=== PATIENT | female | born 1970 | race Caucasian/White ===

== ENCOUNTER 2017-09-01 16:30 | Inpatient (IN) | payer MEDICAID ==
[2017-09-01] MEDS: ONDANSETRON 4 MG INJ IV (19:10)
[2017-09-01] MEDS: morphine 4 MG/ML VIAL IV (19:10)
[2017-09-01] MEDS: SOD CHLORIDE 0.9% 1,000 ML IV (19:12)
[2017-09-01 19:22] LABS: ADD MAN DIFF? NO
[2017-09-01 19:26] LABS: WHITE BLOOD COUNT 8.6 10^3/ul (4.8-10.8)
[2017-09-01 19:26] LABS: BASOPHIL # 0.1 10^3/ul (0.0-0.1); BASOPHILS % 0.6 % (0.0-2.0); EOSINOPHILS # 0.1 10^3/ul (0.0-0.5); EOSINOPHILS % 0.9 % (0.0-7.0); HEMATOCRIT 39.2 % (37.0-47.0); HEMOGLOBIN 12.6 g/dl (12.0-16.0); LYMPHOCYTES # 2.3 10^3/ul (0.8-2.9); MEAN CORPUSCULAR HEMOGLOBIN 25.9 pg (29.0-33.0); MEAN CORPUSCULAR HGB CONC 32.1 g/dl (32.0-37.0); MEAN CORPUSCULAR VOLUME 80.7 fl (82.0-101.0); MEAN PLATELET VOLUME 11.2 fl (7.4-10.4); MONOCYTE # 0.7 10^3/ul (0.3-0.9); MONOCYTES % 7.7 % (0.0-11.0); NEUTROPHIL # 5.5 10^3/ul (1.6-7.5); NEUTROPHILS % 63.6 % (39.0-77.0); PLATELET COUNT 311 10^3/UL (140-415); RED BLOOD COUNT 4.86 10^6/ul (4.20-5.40)
[2017-09-01 19:37] LABS: ADD UMIC YES; UR ASCORBIC ACID NEGATIVE (NEGATIVE); UR BACTERIA FEW /HPF (NONE SEEN); UR BILIRUBIN (Dip) NEGATIVE (NEGATIVE); UR BLOOD (Dip) NEGATIVE (NEGATIVE); UR CLARITY SLIGHTLY CLOUDY (CLEAR); UR COLOR YELLOW (YELLOW); UR GLUCOSE (Dip) NEGATIVE (NEGATIVE); UR KETONES (Dip) NEGATIVE (NEGATIVE); UR LEUKOCYTE ESTERASE (Dip) 2+ Leu/ul (NEGATIVE); UR NITRITE (Dip) NEGATIVE (NEGATIVE); UR RBC 1 /HPF (0-5); UR SQUAMOUS EPITHELIAL CELL MODERATE /HPF (FEW); UR TOTAL PROTEIN (Dip) NEGATIVE (NEGATIVE); UR UROBILINOGEN (Dip) NEGATIVE (NEGATIVE); UR WBC 18 /HPF (0-5)
[2017-09-01 19:43] LABS: ALANINE AMINOTRANSFERASE 39 IU/L (13-69); ALBUMIN 4.6 g/dl (3.3-4.9); ALBUMIN/GLOBULIN RATIO 1.17; ALKALINE PHOSPHATASE 72 IU/L (42-121); ANION GAP 18 (8-16); ASPARTATE AMINO TRANSFERASE 37 IU/L (15-46); BILIRUBIN,INDIRECT 0.2 mg/dl (0-1.1); BILIRUBIN,TOTAL 0.2 mg/dl (0.2-1.3); BLOOD UREA NITROGEN 13 mg/dl (7-20); CALCIUM 9.1 mg/dl (8.4-10.2); CARBON DIOXIDE 27 mmol/L (21-31); CHLORIDE 101 mmol/L (97-110); CREATININE 0.96 mg/dl (0.44-1.00); GLUCOSE 89 mg/dl (70-220); LIPASE 186 U/L (23-300); POTASSIUM 3.6 mmol/L (3.5-5.1); SODIUM 142 mmol/L (135-144); TOTAL PROTEIN 8.5 g/dl (6.1-8.1)
[2017-09-01 19:55] LABS: TROPONIN-I < 0.012 ng/ml (0.00-0.12)
[2017-09-02] MEDS ORDERED: ACETAMINOPHEN 325 MG TAB PO
[2017-09-02] MEDS ORDERED: ONDANSETRON 4 MG INJ IV
[2017-09-02] MEDS: PANTOPRAZOLE 40 MG INJ IV ×2 (05:55→17:11)
[2017-09-02 06:32] LABS: ADD MAN DIFF? NO
[2017-09-02 06:46] LABS: WHITE BLOOD COUNT 7.9 10^3/ul (4.8-10.8)
[2017-09-02 06:46] LABS: BASOPHILS % 0.4 % (0.0-2.0); HEMATOCRIT 36.1 % (37.0-47.0); HEMOGLOBIN 11.6 g/dl (12.0-16.0); LYMPHOCYTES % 12.9 % (15.0-51.0); MEAN CORPUSCULAR HEMOGLOBIN 25.8 pg (29.0-33.0); MEAN CORPUSCULAR HGB CONC 32.1 g/dl (32.0-37.0); MEAN CORPUSCULAR VOLUME 80.4 fl (82.0-101.0); MEAN PLATELET VOLUME 11.7 fl (7.4-10.4); MONOCYTE # 0.3 10^3/ul (0.3-0.9); MONOCYTES % 4.2 % (0.0-11.0); NEUTROPHIL # 6.5 10^3/ul (1.6-7.5); NEUTROPHILS % 82.4 % (39.0-77.0); PLATELET COUNT 280 10^3/UL (140-415); RED BLOOD COUNT 4.49 10^6/ul (4.20-5.40)
[2017-09-02 07:06] LABS: ANION GAP 18 (8-16); BLOOD UREA NITROGEN 11 mg/dl (7-20); CARBON DIOXIDE 23 mmol/L (21-31); CHLORIDE 107 mmol/L (97-110); CREATININE 0.83 mg/dl (0.44-1.00); GLUCOSE 120 mg/dl (70-220); POTASSIUM 3.9 mmol/L (3.5-5.1); SODIUM 144 mmol/L (135-144)
[2017-09-02 07:07] LABS: ALANINE AMINOTRANSFERASE 44 IU/L (13-69); ALBUMIN 4.1 g/dl (3.3-4.9); ALBUMIN/GLOBULIN RATIO 1.24; ALKALINE PHOSPHATASE 74 IU/L (42-121); ASPARTATE AMINO TRANSFERASE 39 IU/L (15-46); BILIRUBIN,INDIRECT 0.2 mg/dl (0-1.1); BILIRUBIN,TOTAL 0.2 mg/dl (0.2-1.3); CALCIUM 8.6 mg/dl (8.4-10.2); PHOSPHORUS 2.7 mg/dl (2.5-4.9); TOTAL PROTEIN 7.4 g/dl (6.1-8.1)
[2017-09-02 08:13] LABS: CANCER ANTIGEN 125 57.8 U/ml (0.0-35.0)
[2017-09-02 08:13] LABS: CARCINOEMBRYONIC ANTIGEN 1.8 ng/ml (0.0-5.0)
[2017-09-02] MEDS: CIPROFLOXACIN 400MG/D5W 200 ML IVPB ×2 (09:29→22:05)
[2017-09-02] MEDS ORDERED: BARIUM SULF 2% 450 ML BTL (BERRY SMOOTHIE) PO (12:30)
[2017-09-02] MEDS: D5W-0.45 NACL + KCL 20 MEQ 1,000 ML IV (16:25)
[2017-09-02] MEDS: IOHEXOL 300MG/ML 150 ML BTL (20:41)
[2017-09-02] MEDS: SOD CHLORIDE 0.9% 100 ML (20:41)
[2017-09-03 05:25] LABS: ADD MAN DIFF? NO
[2017-09-03 05:32] LABS: WHITE BLOOD COUNT 8.5 10^3/ul (4.8-10.8)
[2017-09-03 05:32] LABS: BASOPHILS % 0.5 % (0.0-2.0); EOSINOPHILS # 0.1 10^3/ul (0.0-0.5); EOSINOPHILS % 0.7 % (0.0-7.0); HEMATOCRIT 36.2 % (37.0-47.0); HEMOGLOBIN 11.4 g/dl (12.0-16.0); LYMPHOCYTES # 1.9 10^3/ul (0.8-2.9); LYMPHOCYTES % 22.5 % (15.0-51.0); MEAN CORPUSCULAR HEMOGLOBIN 25.4 pg (29.0-33.0); MEAN CORPUSCULAR HGB CONC 31.5 g/dl (32.0-37.0); MEAN CORPUSCULAR VOLUME 80.6 fl (82.0-101.0); MEAN PLATELET VOLUME 11.1 fl (7.4-10.4); MONOCYTE # 0.9 10^3/ul (0.3-0.9); MONOCYTES % 10.6 % (0.0-11.0); NEUTROPHIL # 5.6 10^3/ul (1.6-7.5); NEUTROPHILS % 65.6 % (39.0-77.0); PLATELET COUNT 264 10^3/UL (140-415); RED BLOOD COUNT 4.49 10^6/ul (4.20-5.40); RED CELL DISTRIBUTION WIDTH 16.3 % (11.5-14.5)
[2017-09-03 05:49] LABS: ALANINE AMINOTRANSFERASE 39 IU/L (13-69); ALBUMIN 3.9 g/dl (3.3-4.9); ALBUMIN/GLOBULIN RATIO 1.18; ALKALINE PHOSPHATASE 70 IU/L (42-121); ANION GAP 15 (8-16); ASPARTATE AMINO TRANSFERASE 28 IU/L (15-46); BILIRUBIN,INDIRECT 0.5 mg/dl (0-1.1); BILIRUBIN,TOTAL 0.5 mg/dl (0.2-1.3); BLOOD UREA NITROGEN 8 mg/dl (7-20); CALCIUM 8.4 mg/dl (8.4-10.2); CARBON DIOXIDE 23 mmol/L (21-31); CHLORIDE 108 mmol/L (97-110); CREATININE 0.76 mg/dl (0.44-1.00); GLUCOSE 113 mg/dl (70-220); POTASSIUM 3.6 mmol/L (3.5-5.1); SODIUM 142 mmol/L (135-144); TOTAL PROTEIN 7.2 g/dl (6.1-8.1)
[2017-09-03] MEDS: PANTOPRAZOLE 40 MG INJ IV ×2 (07:15→18:03)
[2017-09-03] MEDS: CIPROFLOXACIN 400MG/D5W 200 ML IVPB ×2 (09:27→21:12)
[2017-09-03] MEDS: D5W-0.45 NACL + KCL 20 MEQ 1,000 ML IV (12:06)
[2017-09-03] MEDS: FENTAnyl 50 MCG/ML VIAL (15:20)
[2017-09-03] MEDS: PROPOFOL 20 ML (15:20)
[2017-09-03] MEDS: METOCLOPRAMIDE 10 MG INJ IV ×2 (18:04→23:57)
[2017-09-03] MEDS: morphine 4 MG/ML VIAL IV (23:57)
[2017-09-04] MEDS: D5W-0.45 NACL + KCL 20 MEQ 1,000 ML IV ×2 (01:50→08:38)
[2017-09-04] MEDS: METOCLOPRAMIDE 10 MG INJ IV ×5 (06:00→23:28)
[2017-09-04] MEDS: PANTOPRAZOLE 40 MG INJ IV ×2 (06:16→17:33)
[2017-09-04] MEDS: CIPROFLOXACIN 400MG/D5W 200 ML IVPB ×2 (08:38→20:18)
[2017-09-05] MEDS: D5W-0.45 NACL + KCL 20 MEQ 1,000 ML IV ×2 (01:22→18:15)
[2017-09-05] MEDS: PANTOPRAZOLE 40 MG INJ IV ×2 (05:13→18:15)
[2017-09-05] MEDS: METOCLOPRAMIDE 10 MG INJ IV ×3 (05:13→18:15)
[2017-09-05] MEDS: CIPROFLOXACIN 400MG/D5W 200 ML IVPB ×2 (08:30→20:51)
[2017-09-06] MEDS: METOCLOPRAMIDE 10 MG INJ IV ×5 (00:52→23:51)
[2017-09-06] MEDS: D5W-0.45 NACL + KCL 20 MEQ 1,000 ML IV ×2 (03:50→13:15)
[2017-09-06] MEDS: PANTOPRAZOLE 40 MG INJ IV ×2 (05:43→18:53)
[2017-09-06] MEDS: CIPROFLOXACIN 400MG/D5W 200 ML IVPB ×2 (08:24→20:52)
[2017-09-07] MEDS: METOCLOPRAMIDE 10 MG INJ IV (05:14)
[2017-09-07] MEDS: PANTOPRAZOLE 40 MG INJ IV ×2 (05:14→17:31)
[2017-09-07] MEDS: D5W-0.45 NACL + KCL 20 MEQ 1,000 ML IV (07:44)
[2017-09-07] MEDS: CIPROFLOXACIN 400MG/D5W 200 ML IVPB ×2 (09:31→21:11)
[2017-09-07 10:18] LABS: OCCULT BLOOD STOOL NEGATIVE (NEGATIVE)
[2017-09-07 11:46] LABS: ANION GAP 17 (8-16); BLOOD UREA NITROGEN 10 mg/dl (7-20); CALCIUM 8.8 mg/dl (8.4-10.2); CARBON DIOXIDE 22 mmol/L (21-31); CHLORIDE 105 mmol/L (97-110); GLUCOSE 109 mg/dl (70-220); POTASSIUM 3.7 mmol/L (3.5-5.1); SODIUM 140 mmol/L (135-144)
[2017-09-08] MEDS: D5W-0.45 NACL + KCL 20 MEQ 1,000 ML IV ×2 (04:55→22:14)
[2017-09-08] MEDS: PANTOPRAZOLE 40 MG INJ IV ×2 (05:09→18:27)
[2017-09-08] MEDS: CIPROFLOXACIN 400MG/D5W 200 ML IVPB (08:09)
[2017-09-09 05:36] LABS: ADD MAN DIFF? NO
[2017-09-09 05:44] LABS: WHITE BLOOD COUNT 6.8 10^3/ul (4.8-10.8)
[2017-09-09 05:44] LABS: BASOPHILS % 0.6 % (0.0-2.0); EOSINOPHILS # 0.2 10^3/ul (0.0-0.5); EOSINOPHILS % 3.1 % (0.0-7.0); HEMATOCRIT 35.3 % (37.0-47.0); HEMOGLOBIN 11.6 g/dl (12.0-16.0); LYMPHOCYTES % 29.8 % (15.0-51.0); MEAN CORPUSCULAR HEMOGLOBIN 26.2 pg (29.0-33.0); MEAN CORPUSCULAR HGB CONC 32.9 g/dl (32.0-37.0); MEAN CORPUSCULAR VOLUME 79.7 fl (82.0-101.0); MEAN PLATELET VOLUME 10.9 fl (7.4-10.4); MONOCYTE # 0.8 10^3/ul (0.3-0.9); MONOCYTES % 11.7 % (0.0-11.0); NEUTROPHIL # 3.7 10^3/ul (1.6-7.5); NEUTROPHILS % 54.4 % (39.0-77.0); PLATELET COUNT 282 10^3/UL (140-415); RED BLOOD COUNT 4.43 10^6/ul (4.20-5.40); RED CELL DISTRIBUTION WIDTH 16.2 % (11.5-14.5)
[2017-09-09 06:06] LABS: MAGNESIUM 1.7 mg/dl (1.7-2.5)
[2017-09-09 06:06] LABS: PHOSPHORUS 4.1 mg/dl (2.5-4.9)
[2017-09-09 06:10] LABS: ANION GAP 13 (8-16); BLOOD UREA NITROGEN 9 mg/dl (7-20); CALCIUM 9.1 mg/dl (8.4-10.2); CARBON DIOXIDE 27 mmol/L (21-31); CHLORIDE 104 mmol/L (97-110); CREATININE 0.83 mg/dl (0.44-1.00); GLUCOSE 100 mg/dl (70-220); POTASSIUM 3.9 mmol/L (3.5-5.1); SODIUM 140 mmol/L (135-144)
[2017-09-09] MEDS: PANTOPRAZOLE 40 MG INJ IV ×2 (06:36→17:09)
[2017-09-09 12:36] LABS: INR 0.95; PROTIME 12.8 Sec (11.9-14.9)
[2017-09-09] MEDS: D5W-0.45 NACL + KCL 20 MEQ 1,000 ML IV (15:08)
[2017-09-10] MEDS: PANTOPRAZOLE 40 MG INJ IV ×2 (05:26→17:05)
[2017-09-10 05:30] LABS: ADD MAN DIFF? NO
[2017-09-10 05:34] LABS: BASOPHIL # 0.1 10^3/ul (0.0-0.1); BASOPHILS % 0.7 % (0.0-2.0); EOSINOPHILS # 0.1 10^3/ul (0.0-0.5); EOSINOPHILS % 1.9 % (0.0-7.0); HEMATOCRIT 36.6 % (37.0-47.0); HEMOGLOBIN 12.2 g/dl (12.0-16.0); LYMPHOCYTES # 1.7 10^3/ul (0.8-2.9); LYMPHOCYTES % 22.4 % (15.0-51.0); MEAN CORPUSCULAR HGB CONC 33.3 g/dl (32.0-37.0); MEAN PLATELET VOLUME 10.6 fl (7.4-10.4); MONOCYTE # 0.7 10^3/ul (0.3-0.9); MONOCYTES % 9.8 % (0.0-11.0); NEUTROPHIL # 4.8 10^3/ul (1.6-7.5); NEUTROPHILS % 64.9 % (39.0-77.0); PLATELET COUNT 272 10^3/UL (140-415); RED BLOOD COUNT 4.69 10^6/ul (4.20-5.40); RED CELL DISTRIBUTION WIDTH 15.9 % (11.5-14.5)
[2017-09-10 05:34] LABS: WHITE BLOOD COUNT 7.4 10^3/ul (4.8-10.8)
[2017-09-10 05:50] LABS: MAGNESIUM 1.8 mg/dl (1.7-2.5)
[2017-09-10 05:50] LABS: PHOSPHORUS 3.8 mg/dl (2.5-4.9)
[2017-09-10 05:54] LABS: ALANINE AMINOTRANSFERASE 34 IU/L (13-69); ALBUMIN 3.4 g/dl (3.3-4.9); ALBUMIN/GLOBULIN RATIO 0.97; ALKALINE PHOSPHATASE 66 IU/L (42-121); ANION GAP 14 (8-16); ASPARTATE AMINO TRANSFERASE 16 IU/L (15-46); BILIRUBIN,INDIRECT 0.3 mg/dl (0-1.1); BILIRUBIN,TOTAL 0.3 mg/dl (0.2-1.3); BLOOD UREA NITROGEN 8 mg/dl (7-20); CALCIUM 9.2 mg/dl (8.4-10.2); CARBON DIOXIDE 25 mmol/L (21-31); CHLORIDE 105 mmol/L (97-110); CREATININE 0.76 mg/dl (0.44-1.00); GLUCOSE 100 mg/dl (70-220); POTASSIUM 3.8 mmol/L (3.5-5.1); SODIUM 140 mmol/L (135-144); TOTAL PROTEIN 6.9 g/dl (6.1-8.1)
[2017-09-10] MEDS: D5W-0.45 NACL + KCL 20 MEQ 1,000 ML IV (06:52)
[2017-09-10] MEDS ORDERED: BUPIVACAINE 0.5%/EPI (SDV) 30 ML INJ (09:12)
[2017-09-10] MEDS ORDERED: LIDOCAINE 2%/EPI 30 ML INJ (11:12)
[2017-09-10] MEDS ORDERED: FENTAnyl 50 MCG/ML VIAL ×4 (11:23→13:53)
[2017-09-10] MEDS ORDERED: LIDOCAINE 1% (MPF) 30 ML INJ (11:34)
[2017-09-10] MEDS ORDERED: CEFAZOLIN 1 GM INJ (11:51)
[2017-09-10] MEDS ORDERED: LIDOCAINE 2% (SDV) 5 ML INJ (11:51)
[2017-09-10] MEDS ORDERED: PROPOFOL 20 ML (11:51)
[2017-09-10] MEDS ORDERED: SUGAMMADEX SODIUM 200 MG/2 ML VIAL IV (11:51)
[2017-09-10] MEDS ORDERED: ROCURONIUM 50 MG INJ (11:51)
[2017-09-10] MEDS ORDERED: SUCCINYLCHOLINE CHLORIDE 100 MG/5 ML SYG IV (11:51)
[2017-09-10] MEDS ORDERED: FENTAnyl 50 MCG/ML VIAL IV ×2 (15:00)
[2017-09-10] MEDS ORDERED: MEPERIDINE 25 MG INJ (15:00)
[2017-09-10] MEDS ORDERED: METOCLOPRAMIDE 10 MG INJ IV (15:00)
[2017-09-10] MEDS ORDERED: DIPHENHYDRAMINE 50 MG INJ IV (15:00)
[2017-09-10] MEDS ORDERED: HYDROmorphONE (0.2 MG/ML) 10ML SYG IV ×3 (15:00)
[2017-09-10] MEDS ORDERED: ONDANSETRON 4 MG INJ IV (15:00)
[2017-09-10] MEDS: MEPERIDINE 25 MG INJ IV (15:14)
[2017-09-11] MEDS: D5W-0.45 NACL + KCL 20 MEQ 1,000 ML IV ×3 (00:30→23:29)
[2017-09-11] MEDS: PANTOPRAZOLE 40 MG INJ IV ×2 (05:12→17:22)
[2017-09-11 05:38] LABS: ADD MAN DIFF? NO
[2017-09-11 05:47] LABS: WHITE BLOOD COUNT 10.1 10^3/ul (4.8-10.8)
[2017-09-11 05:47] LABS: BASOPHILS % 0.3 % (0.0-2.0); EOSINOPHILS % 0.2 % (0.0-7.0); HEMATOCRIT 37.1 % (37.0-47.0); HEMOGLOBIN 12.1 g/dl (12.0-16.0); LYMPHOCYTES # 1.6 10^3/ul (0.8-2.9); LYMPHOCYTES % 15.6 % (15.0-51.0); MEAN CORPUSCULAR HEMOGLOBIN 25.6 pg (29.0-33.0); MEAN CORPUSCULAR HGB CONC 32.6 g/dl (32.0-37.0); MEAN CORPUSCULAR VOLUME 78.6 fl (82.0-101.0); MEAN PLATELET VOLUME 10.8 fl (7.4-10.4); MONOCYTE # 0.8 10^3/ul (0.3-0.9); MONOCYTES % 8.3 % (0.0-11.0); NEUTROPHIL # 7.6 10^3/ul (1.6-7.5); NEUTROPHILS % 75.3 % (39.0-77.0); PLATELET COUNT 293 10^3/UL (140-415); RED BLOOD COUNT 4.72 10^6/ul (4.20-5.40); RED CELL DISTRIBUTION WIDTH 15.8 % (11.5-14.5)
[2017-09-11 06:08] LABS: MAGNESIUM 1.7 mg/dl (1.7-2.5)
[2017-09-11 06:11] LABS: ALANINE AMINOTRANSFERASE 33 IU/L (13-69); ALBUMIN 3.5 g/dl (3.3-4.9); ALKALINE PHOSPHATASE 71 IU/L (42-121); ANION GAP 15 (8-16); ASPARTATE AMINO TRANSFERASE 30 IU/L (15-46); BILIRUBIN,INDIRECT 0.4 mg/dl (0-1.1); BILIRUBIN,TOTAL 0.4 mg/dl (0.2-1.3); BLOOD UREA NITROGEN 5 mg/dl (7-20); CALCIUM 8.7 mg/dl (8.4-10.2); CARBON DIOXIDE 27 mmol/L (21-31); CHLORIDE 103 mmol/L (97-110); CREATININE 0.79 mg/dl (0.44-1.00); GLUCOSE 114 mg/dl (70-220); POTASSIUM 4.1 mmol/L (3.5-5.1); SODIUM 141 mmol/L (135-144)
[2017-09-12] MEDS: PANTOPRAZOLE 40 MG INJ IV ×2 (05:22→18:01)
[2017-09-12] MEDS: D5W-0.45 NACL + KCL 20 MEQ 1,000 ML IV (16:29)
[2017-09-13 05:07] LABS: ADD MAN DIFF? NO
[2017-09-13 05:11] LABS: WHITE BLOOD COUNT 9.9 10^3/ul (4.8-10.8)
[2017-09-13 05:11] LABS: BASOPHILS % 0.4 % (0.0-2.0); EOSINOPHILS # 0.1 10^3/ul (0.0-0.5); EOSINOPHILS % 1.2 % (0.0-7.0); HEMATOCRIT 37.1 % (37.0-47.0); LYMPHOCYTES # 1.4 10^3/ul (0.8-2.9); LYMPHOCYTES % 14.5 % (15.0-51.0); MEAN CORPUSCULAR HEMOGLOBIN 25.5 pg (29.0-33.0); MEAN CORPUSCULAR HGB CONC 32.3 g/dl (32.0-37.0); MEAN CORPUSCULAR VOLUME 78.8 fl (82.0-101.0); MEAN PLATELET VOLUME 10.4 fl (7.4-10.4); MONOCYTE # 0.8 10^3/ul (0.3-0.9); MONOCYTES % 8.3 % (0.0-11.0); NEUTROPHIL # 7.4 10^3/ul (1.6-7.5); NEUTROPHILS % 75.4 % (39.0-77.0); PLATELET COUNT 267 10^3/UL (140-415); RED BLOOD COUNT 4.71 10^6/ul (4.20-5.40)
[2017-09-13] MEDS: PANTOPRAZOLE 40 MG INJ IV ×2 (05:35→17:48)
[2017-09-13 05:45] LABS: ANION GAP 15 (8-16); BLOOD UREA NITROGEN 10 mg/dl (7-20); CALCIUM 8.6 mg/dl (8.4-10.2); CARBON DIOXIDE 24 mmol/L (21-31); CHLORIDE 105 mmol/L (97-110); CREATININE 0.73 mg/dl (0.44-1.00); GLUCOSE 109 mg/dl (70-220); POTASSIUM 3.5 mmol/L (3.5-5.1); SODIUM 140 mmol/L (135-144)
[2017-09-13 05:50] LABS: PHOSPHORUS 3.1 mg/dl (2.5-4.9)
[2017-09-13 05:50] LABS: MAGNESIUM 1.8 mg/dl (1.7-2.5)
[2017-09-13] MEDS: D5W-0.45 NACL + KCL 20 MEQ 1,000 ML IV (09:38)
[2017-09-13] MEDS ORDERED: DIATR MEGLU/DIATRIZOATE SODIUM 120 ML BTL (17:15)
[2017-09-14] MEDS: PANTOPRAZOLE 40 MG INJ IV ×2 (05:32→19:17)
[2017-09-14] MEDS: D5W-0.45 NACL + KCL 20 MEQ 1,000 ML IV (06:32)
[2017-09-15] MEDS: D5W-0.45 NACL + KCL 20 MEQ 1,000 ML IV ×3 (00:01→23:35)
[2017-09-15] MEDS: PANTOPRAZOLE 40 MG INJ IV ×2 (05:43→18:03)
[2017-09-15 06:01] LABS: ADD MAN DIFF? NO
[2017-09-15 06:15] LABS: BASOPHIL # 0.1 10^3/ul (0.0-0.1); BASOPHILS % 0.6 % (0.0-2.0); EOSINOPHILS # 0.2 10^3/ul (0.0-0.5); EOSINOPHILS % 2.7 % (0.0-7.0); HEMATOCRIT 33.8 % (37.0-47.0); HEMOGLOBIN 10.9 g/dl (12.0-16.0); LYMPHOCYTES % 23.4 % (15.0-51.0); MEAN CORPUSCULAR HEMOGLOBIN 25.6 pg (29.0-33.0); MEAN CORPUSCULAR HGB CONC 32.2 g/dl (32.0-37.0); MEAN CORPUSCULAR VOLUME 79.3 fl (82.0-101.0); MEAN PLATELET VOLUME 11.3 fl (7.4-10.4); MONOCYTE # 0.8 10^3/ul (0.3-0.9); NEUTROPHIL # 5.6 10^3/ul (1.6-7.5); NEUTROPHILS % 64.1 % (39.0-77.0); PLATELET COUNT 267 10^3/UL (140-415); RED BLOOD COUNT 4.26 10^6/ul (4.20-5.40); RED CELL DISTRIBUTION WIDTH 16.6 % (11.5-14.5)
[2017-09-15 06:15] LABS: WHITE BLOOD COUNT 8.7 10^3/ul (4.8-10.8)
[2017-09-15 06:27] LABS: PHOSPHORUS 3.6 mg/dl (2.5-4.9)
[2017-09-15 06:27] LABS: MAGNESIUM 1.8 mg/dl (1.7-2.5)
[2017-09-15 06:48] LABS: ANION GAP 13 (8-16); BLOOD UREA NITROGEN 11 mg/dl (7-20); CALCIUM 8.1 mg/dl (8.4-10.2); CARBON DIOXIDE 27 mmol/L (21-31); CHLORIDE 104 mmol/L (97-110); CREATININE 0.68 mg/dl (0.44-1.00); GLUCOSE 98 mg/dl (70-220); POTASSIUM 3.3 mmol/L (3.5-5.1); SODIUM 141 mmol/L (135-144)
[2017-09-15] MEDS ORDERED: POTASSIUM CHLORIDE 20 MEQ in DEXTROSE 5% 100 ML IVPB (13:00)
[2017-09-15] MEDS: POTASSIUM CHLORIDE 50 ML IVPB ×2 (14:12→16:16)
[2017-09-16 05:26] LABS: ADD MAN DIFF? NO
[2017-09-16 05:29] LABS: BASOPHILS % 0.4 % (0.0-2.0); EOSINOPHILS # 0.3 10^3/ul (0.0-0.5); EOSINOPHILS % 3.6 % (0.0-7.0); HEMATOCRIT 35.2 % (37.0-47.0); HEMOGLOBIN 11.5 g/dl (12.0-16.0); LYMPHOCYTES # 1.6 10^3/ul (0.8-2.9); MEAN CORPUSCULAR HGB CONC 32.7 g/dl (32.0-37.0); MEAN CORPUSCULAR VOLUME 79.5 fl (82.0-101.0); MEAN PLATELET VOLUME 10.5 fl (7.4-10.4); MONOCYTE # 0.8 10^3/ul (0.3-0.9); MONOCYTES % 10.3 % (0.0-11.0); NEUTROPHIL # 4.7 10^3/ul (1.6-7.5); NEUTROPHILS % 63.4 % (39.0-77.0); PLATELET COUNT 283 10^3/UL (140-415); RED BLOOD COUNT 4.43 10^6/ul (4.20-5.40); RED CELL DISTRIBUTION WIDTH 16.1 % (11.5-14.5)
[2017-09-16 05:29] LABS: WHITE BLOOD COUNT 7.4 10^3/ul (4.8-10.8)
[2017-09-16] MEDS: PANTOPRAZOLE 40 MG INJ IV ×2 (05:38→17:08)
[2017-09-16 05:45] LABS: ANION GAP 14 (8-16); BLOOD UREA NITROGEN 9 mg/dl (7-20); CALCIUM 8.4 mg/dl (8.4-10.2); CARBON DIOXIDE 28 mmol/L (21-31); CHLORIDE 104 mmol/L (97-110); CREATININE 0.73 mg/dl (0.44-1.00); GLUCOSE 101 mg/dl (70-220); POTASSIUM 4.2 mmol/L (3.5-5.1); SODIUM 142 mmol/L (135-144)
[2017-09-16 12:02] LABS: IRON 18 ug/dl (35-150)
[2017-09-16 12:12] LABS: % IRON SATURATION 7 % SAT (22-52); TOTAL IRON BINDING CAPACITY 241 ug/dl (241-421)
[2017-09-16] MEDS: D5W-0.45 NACL + KCL 20 MEQ 1,000 ML IV (14:39)
[2017-09-17 05:19] LABS: ADD MAN DIFF? NO
[2017-09-17 05:25] LABS: BASOPHILS % 0.6 % (0.0-2.0); EOSINOPHILS # 0.2 10^3/ul (0.0-0.5); EOSINOPHILS % 3.2 % (0.0-7.0); HEMATOCRIT 36.1 % (37.0-47.0); HEMOGLOBIN 11.4 g/dl (12.0-16.0); LYMPHOCYTES # 1.9 10^3/ul (0.8-2.9); LYMPHOCYTES % 26.6 % (15.0-51.0); MEAN CORPUSCULAR HEMOGLOBIN 25.3 pg (29.0-33.0); MEAN CORPUSCULAR HGB CONC 31.6 g/dl (32.0-37.0); MONOCYTE # 0.6 10^3/ul (0.3-0.9); MONOCYTES % 8.2 % (0.0-11.0); NEUTROPHIL # 4.4 10^3/ul (1.6-7.5); NEUTROPHILS % 61.1 % (39.0-77.0); PLATELET COUNT 305 10^3/UL (140-415); RED BLOOD COUNT 4.51 10^6/ul (4.20-5.40); RED CELL DISTRIBUTION WIDTH 16.2 % (11.5-14.5)
[2017-09-17 05:25] LABS: WHITE BLOOD COUNT 7.2 10^3/ul (4.8-10.8)
[2017-09-17 05:46] LABS: ANION GAP 11 (8-16); BLOOD UREA NITROGEN 9 mg/dl (7-20); CALCIUM 8.9 mg/dl (8.4-10.2); CARBON DIOXIDE 29 mmol/L (21-31); CHLORIDE 102 mmol/L (97-110); CREATININE 0.71 mg/dl (0.44-1.00); GLUCOSE 107 mg/dl (70-220); POTASSIUM 4.2 mmol/L (3.5-5.1); SODIUM 138 mmol/L (135-144)
[2017-09-17] MEDS: PANTOPRAZOLE 40 MG INJ IV ×2 (06:26→18:32)
[2017-09-17] MEDS: D5W-0.45 NACL + KCL 20 MEQ 1,000 ML IV (06:27)
[2017-09-17] MEDS ORDERED: DIPHENHYDRAMINE 50 MG INJ IV (19:00)
[2017-09-17] MEDS ORDERED: MEPERIDINE 25 MG INJ IV (19:00)
[2017-09-17] MEDS ORDERED: ONDANSETRON 4 MG INJ IV (19:00)
[2017-09-17] MEDS ORDERED: HYDROmorphONE (0.2 MG/ML) 10ML SYG IV (19:00)
[2017-09-17] MEDS ORDERED: PROPOFOL 20 ML ×3 (19:09→19:45)
[2017-09-17] MEDS ORDERED: LIDOCAINE 1% (MDV) 20 ML INJ (19:09)
[2017-09-17] MEDS ORDERED: MIDAZOLAM 1 MG/ML 2 ML INJ ×2 (19:09→19:21)
[2017-09-17] MEDS: METOCLOPRAMIDE 10 MG INJ IV ×2 (20:00→21:35)
[2017-09-17] MEDS: ONDANSETRON 4 MG INJ IV (21:52)
[2017-09-18] MEDS: METOCLOPRAMIDE 10 MG INJ IV ×5 (02:57→17:43)
[2017-09-18 05:12] LABS: ADD MAN DIFF? NO
[2017-09-18 05:16] LABS: BASOPHILS % 0.4 % (0.0-2.0); EOSINOPHILS # 0.1 10^3/ul (0.0-0.5); EOSINOPHILS % 1.1 % (0.0-7.0); HEMATOCRIT 36.1 % (37.0-47.0); HEMOGLOBIN 11.6 g/dl (12.0-16.0); LYMPHOCYTES # 0.8 10^3/ul (0.8-2.9); LYMPHOCYTES % 10.4 % (15.0-51.0); MEAN CORPUSCULAR HEMOGLOBIN 25.4 pg (29.0-33.0); MEAN CORPUSCULAR HGB CONC 32.1 g/dl (32.0-37.0); MEAN CORPUSCULAR VOLUME 79.2 fl (82.0-101.0); MEAN PLATELET VOLUME 10.6 fl (7.4-10.4); MONOCYTE # 0.6 10^3/ul (0.3-0.9); MONOCYTES % 6.9 % (0.0-11.0); NEUTROPHIL # 6.5 10^3/ul (1.6-7.5); NEUTROPHILS % 80.8 % (39.0-77.0); PLATELET COUNT 329 10^3/UL (140-415); RED BLOOD COUNT 4.56 10^6/ul (4.20-5.40)
[2017-09-18 05:16] LABS: WHITE BLOOD COUNT 8.1 10^3/ul (4.8-10.8)
[2017-09-18] MEDS: PANTOPRAZOLE 40 MG INJ IV ×2 (05:29→17:42)
[2017-09-18] MEDS: D5W-0.45 NACL + KCL 20 MEQ 1,000 ML IV ×2 (05:29→15:50)
[2017-09-18 06:13] LABS: ANION GAP 14 (8-16); BLOOD UREA NITROGEN 10 mg/dl (7-20); CALCIUM 8.3 mg/dl (8.4-10.2); CARBON DIOXIDE 26 mmol/L (21-31); CHLORIDE 104 mmol/L (97-110); CREATININE 0.75 mg/dl (0.44-1.00); GLUCOSE 130 mg/dl (70-220); POTASSIUM 4.5 mmol/L (3.5-5.1); SODIUM 139 mmol/L (135-144)
[2017-09-18] MEDS: ONDANSETRON 4 MG INJ IV (08:30)
[2017-09-18] MEDS ORDERED: DIATR MEGLU/DIATRIZOATE SODIUM 120 ML BTL (13:06)
[2017-09-19] MEDS: METOCLOPRAMIDE 10 MG INJ IV ×4 (00:32→17:20)
[2017-09-19] MEDS: D5W-0.45 NACL + KCL 20 MEQ 1,000 ML IV ×3 (00:32→17:13)
[2017-09-19] MEDS: PANTOPRAZOLE 40 MG INJ IV ×2 (05:26→17:13)
[2017-09-19 06:14] LABS: ADD MAN DIFF? NO
[2017-09-19 06:29] LABS: BASOPHIL # 0.1 10^3/ul (0.0-0.1); BASOPHILS % 0.8 % (0.0-2.0); EOSINOPHILS # 0.2 10^3/ul (0.0-0.5); EOSINOPHILS % 2.8 % (0.0-7.0); HEMATOCRIT 35.8 % (37.0-47.0); HEMOGLOBIN 11.6 g/dl (12.0-16.0); LYMPHOCYTES # 1.3 10^3/ul (0.8-2.9); LYMPHOCYTES % 18.8 % (15.0-51.0); MEAN CORPUSCULAR HEMOGLOBIN 26.2 pg (29.0-33.0); MEAN CORPUSCULAR HGB CONC 32.4 g/dl (32.0-37.0); MEAN CORPUSCULAR VOLUME 80.8 fl (82.0-101.0); MEAN PLATELET VOLUME 11.2 fl (7.4-10.4); MONOCYTE # 0.8 10^3/ul (0.3-0.9); MONOCYTES % 10.6 % (0.0-11.0); NEUTROPHIL # 4.7 10^3/ul (1.6-7.5); NEUTROPHILS % 66.7 % (39.0-77.0); PLATELET COUNT 339 10^3/UL (140-415); RED BLOOD COUNT 4.43 10^6/ul (4.20-5.40); RED CELL DISTRIBUTION WIDTH 16.8 % (11.5-14.5)
[2017-09-19 06:29] LABS: WHITE BLOOD COUNT 7.1 10^3/ul (4.8-10.8)
[2017-09-19 07:43] LABS: ANION GAP 14 (8-16); BLOOD UREA NITROGEN 10 mg/dl (7-20); CALCIUM 8.6 mg/dl (8.4-10.2); CARBON DIOXIDE 27 mmol/L (21-31); CHLORIDE 104 mmol/L (97-110); CREATININE 0.74 mg/dl (0.44-1.00); GLUCOSE 114 mg/dl (70-220); POTASSIUM 4.5 mmol/L (3.5-5.1); SODIUM 140 mmol/L (135-144)
[2017-09-19] MEDS: SOD FERRIC GLUC COMPLX 125 MG in SOD CHLORIDE 0.9% 100 ML IVPB (17:13)
[2017-09-20] MEDS: METOCLOPRAMIDE 10 MG INJ IV ×5 (00:08→23:56)
[2017-09-20 05:36] LABS: ADD MAN DIFF? NO
[2017-09-20] MEDS: PANTOPRAZOLE 40 MG INJ IV ×2 (05:44→17:26)
[2017-09-20 05:54] LABS: BASOPHIL # 0.1 10^3/ul (0.0-0.1); BASOPHILS % 0.7 % (0.0-2.0); EOSINOPHILS # 0.3 10^3/ul (0.0-0.5); EOSINOPHILS % 3.6 % (0.0-7.0); HEMATOCRIT 37.8 % (37.0-47.0); HEMOGLOBIN 11.9 g/dl (12.0-16.0); LYMPHOCYTES # 1.6 10^3/ul (0.8-2.9); LYMPHOCYTES % 20.6 % (15.0-51.0); MEAN CORPUSCULAR HEMOGLOBIN 25.4 pg (29.0-33.0); MEAN CORPUSCULAR HGB CONC 31.5 g/dl (32.0-37.0); MEAN CORPUSCULAR VOLUME 80.8 fl (82.0-101.0); MEAN PLATELET VOLUME 10.9 fl (7.4-10.4); MONOCYTE # 0.7 10^3/ul (0.3-0.9); MONOCYTES % 9.6 % (0.0-11.0); NEUTROPHILS % 65.2 % (39.0-77.0); PLATELET COUNT 388 10^3/UL (140-415); RED BLOOD COUNT 4.68 10^6/ul (4.20-5.40); RED CELL DISTRIBUTION WIDTH 16.5 % (11.5-14.5)
[2017-09-20 05:54] LABS: WHITE BLOOD COUNT 7.6 10^3/ul (4.8-10.8)
[2017-09-20 06:26] LABS: ANION GAP 15 (8-16); BLOOD UREA NITROGEN 8 mg/dl (7-20); CALCIUM 8.7 mg/dl (8.4-10.2); CARBON DIOXIDE 28 mmol/L (21-31); CHLORIDE 102 mmol/L (97-110); CREATININE 0.71 mg/dl (0.44-1.00); GLUCOSE 113 mg/dl (70-220); POTASSIUM 4.3 mmol/L (3.5-5.1); SODIUM 141 mmol/L (135-144)
[2017-09-20] MEDS: D5W-0.45 NACL + KCL 20 MEQ 1,000 ML IV (15:41)
[2017-09-20] MEDS: SOD FERRIC GLUC COMPLX 125 MG in SOD CHLORIDE 0.9% 100 ML IVPB (17:25)
[2017-09-21] MEDS: METOCLOPRAMIDE 10 MG INJ IV ×4 (06:11→23:44)
[2017-09-21] MEDS: PANTOPRAZOLE 40 MG INJ IV ×2 (06:11→18:13)
[2017-09-21] MEDS: D5W-0.45 NACL + KCL 20 MEQ 1,000 ML IV ×3 (06:14→23:47)
[2017-09-21] MEDS: SOD FERRIC GLUC COMPLX 125 MG in SOD CHLORIDE 0.9% 100 ML IVPB (17:04)
[2017-09-22] MEDS: D5W-0.45 NACL + KCL 20 MEQ 1,000 ML IV (03:10)
[2017-09-22 05:18] LABS: ADD MAN DIFF? NO
[2017-09-22 05:23] LABS: BASOPHIL # 0.1 10^3/ul (0.0-0.1); BASOPHILS % 0.7 % (0.0-2.0); EOSINOPHILS # 0.3 10^3/ul (0.0-0.5); EOSINOPHILS % 3.8 % (0.0-7.0); HEMATOCRIT 34.7 % (37.0-47.0); HEMOGLOBIN 11.1 g/dl (12.0-16.0); LYMPHOCYTES # 1.3 10^3/ul (0.8-2.9); LYMPHOCYTES % 16.5 % (15.0-51.0); MEAN CORPUSCULAR HEMOGLOBIN 25.5 pg (29.0-33.0); MEAN CORPUSCULAR VOLUME 79.8 fl (82.0-101.0); MEAN PLATELET VOLUME 10.7 fl (7.4-10.4); MONOCYTE # 0.8 10^3/ul (0.3-0.9); NEUTROPHIL # 5.6 10^3/ul (1.6-7.5); NEUTROPHILS % 68.8 % (39.0-77.0); PLATELET COUNT 353 10^3/UL (140-415); RED BLOOD COUNT 4.35 10^6/ul (4.20-5.40); RED CELL DISTRIBUTION WIDTH 16.8 % (11.5-14.5)
[2017-09-22 05:23] LABS: WHITE BLOOD COUNT 8.1 10^3/ul (4.8-10.8)
[2017-09-22 05:44] LABS: ANION GAP 12 (8-16); BLOOD UREA NITROGEN 10 mg/dl (7-20); CALCIUM 8.5 mg/dl (8.4-10.2); CARBON DIOXIDE 28 mmol/L (21-31); CHLORIDE 102 mmol/L (97-110); GLUCOSE 112 mg/dl (70-220); SODIUM 138 mmol/L (135-144)
[2017-09-22] MEDS: METOCLOPRAMIDE 10 MG INJ IV ×2 (05:59→12:58)
[2017-09-22] MEDS: PANTOPRAZOLE 40 MG INJ IV (05:59)
[2017-09-22] MEDS: PANTOPRAZOLE (EC) 40 MG TAB PO (17:46)
[2017-09-23 05:12] LABS: ADD MAN DIFF? NO
[2017-09-23 05:17] LABS: WHITE BLOOD COUNT 7.9 10^3/ul (4.8-10.8)
[2017-09-23 05:17] LABS: BASOPHIL # 0.1 10^3/ul (0.0-0.1); BASOPHILS % 0.6 % (0.0-2.0); EOSINOPHILS # 0.3 10^3/ul (0.0-0.5); EOSINOPHILS % 4.2 % (0.0-7.0); HEMATOCRIT 35.1 % (37.0-47.0); HEMOGLOBIN 11.1 g/dl (12.0-16.0); LYMPHOCYTES # 1.7 10^3/ul (0.8-2.9); LYMPHOCYTES % 21.9 % (15.0-51.0); MEAN CORPUSCULAR HEMOGLOBIN 25.7 pg (29.0-33.0); MEAN CORPUSCULAR HGB CONC 31.6 g/dl (32.0-37.0); MEAN CORPUSCULAR VOLUME 81.3 fl (82.0-101.0); MEAN PLATELET VOLUME 10.7 fl (7.4-10.4); MONOCYTE # 0.8 10^3/ul (0.3-0.9); MONOCYTES % 9.6 % (0.0-11.0); NEUTROPHILS % 63.4 % (39.0-77.0); PLATELET COUNT 354 10^3/UL (140-415); RED BLOOD COUNT 4.32 10^6/ul (4.20-5.40); RED CELL DISTRIBUTION WIDTH 16.8 % (11.5-14.5)
[2017-09-23 05:41] LABS: PHOSPHORUS 4.1 mg/dl (2.5-4.9)
[2017-09-23] MEDS: PANTOPRAZOLE (EC) 40 MG TAB PO ×2 (06:09→17:40)
[2017-09-23 06:28] LABS: ALANINE AMINOTRANSFERASE 76 IU/L (13-69); ALBUMIN 3.2 g/dl (3.3-4.9); ALBUMIN/GLOBULIN RATIO 0.96; ALKALINE PHOSPHATASE 74 IU/L (42-121); ANION GAP 13 (8-16); ASPARTATE AMINO TRANSFERASE 35 IU/L (15-46); BLOOD UREA NITROGEN 11 mg/dl (7-20); CALCIUM 8.8 mg/dl (8.4-10.2); CARBON DIOXIDE 30 mmol/L (21-31); CHLORIDE 101 mmol/L (97-110); CREATININE 0.72 mg/dl (0.44-1.00); GLUCOSE 119 mg/dl (70-220); POTASSIUM 4.1 mmol/L (3.5-5.1); SODIUM 140 mmol/L (135-144); TOTAL PROTEIN 6.5 g/dl (6.1-8.1)
[2017-09-23] MEDS: ACETAMINOPHEN 650MG/20.3ML CUP JT (20:24)
[2017-09-24] MEDS: PANTOPRAZOLE (EC) 40 MG TAB PO ×2 (05:37→18:45)
[2017-09-24] MEDS: ACETAMINOPHEN 650MG/20.3ML CUP JT (06:10)
[2017-09-25 05:29] LABS: ADD MAN DIFF? NO
[2017-09-25] MEDS: PANTOPRAZOLE (EC) 40 MG TAB PO ×2 (05:37→17:42)
[2017-09-25 05:38] LABS: WHITE BLOOD COUNT 8.1 10^3/ul (4.8-10.8)
[2017-09-25 05:38] LABS: BASOPHIL # 0.1 10^3/ul (0.0-0.1); BASOPHILS % 0.6 % (0.0-2.0); EOSINOPHILS # 0.3 10^3/ul (0.0-0.5); EOSINOPHILS % 3.5 % (0.0-7.0); HEMATOCRIT 34.4 % (37.0-47.0); LYMPHOCYTES # 1.7 10^3/ul (0.8-2.9); LYMPHOCYTES % 20.4 % (15.0-51.0); MEAN CORPUSCULAR HEMOGLOBIN 25.8 pg (29.0-33.0); MEAN CORPUSCULAR VOLUME 80.8 fl (82.0-101.0); MEAN PLATELET VOLUME 10.9 fl (7.4-10.4); MONOCYTE # 0.8 10^3/ul (0.3-0.9); MONOCYTES % 9.9 % (0.0-11.0); NEUTROPHIL # 5.3 10^3/ul (1.6-7.5); NEUTROPHILS % 65.2 % (39.0-77.0); PLATELET COUNT 345 10^3/UL (140-415); RED BLOOD COUNT 4.26 10^6/ul (4.20-5.40); RED CELL DISTRIBUTION WIDTH 17.2 % (11.5-14.5)
[2017-09-25 05:52] LABS: PHOSPHORUS 3.8 mg/dl (2.5-4.9)
[2017-09-25 05:53] LABS: ANION GAP 11 (8-16); BLOOD UREA NITROGEN 14 mg/dl (7-20); CALCIUM 8.9 mg/dl (8.4-10.2); CARBON DIOXIDE 31 mmol/L (21-31); CHLORIDE 102 mmol/L (97-110); GLUCOSE 97 mg/dl (70-220); POTASSIUM 3.8 mmol/L (3.5-5.1); SODIUM 140 mmol/L (135-144)
[2017-09-26 04:58] LABS: ADD MAN DIFF? NO
[2017-09-26 05:04] LABS: BASOPHIL # 0.1 10^3/ul (0.0-0.1); BASOPHILS % 0.6 % (0.0-2.0); EOSINOPHILS # 0.2 10^3/ul (0.0-0.5); EOSINOPHILS % 2.6 % (0.0-7.0); HEMATOCRIT 34.8 % (37.0-47.0); HEMOGLOBIN 11.3 g/dl (12.0-16.0); LYMPHOCYTES # 1.2 10^3/ul (0.8-2.9); LYMPHOCYTES % 14.7 % (15.0-51.0); MEAN CORPUSCULAR HEMOGLOBIN 26.3 pg (29.0-33.0); MEAN CORPUSCULAR HGB CONC 32.5 g/dl (32.0-37.0); MEAN CORPUSCULAR VOLUME 81.1 fl (82.0-101.0); MEAN PLATELET VOLUME 10.8 fl (7.4-10.4); MONOCYTE # 0.8 10^3/ul (0.3-0.9); MONOCYTES % 8.9 % (0.0-11.0); NEUTROPHIL # 6.2 10^3/ul (1.6-7.5); NEUTROPHILS % 73.1 % (39.0-77.0); PLATELET COUNT 337 10^3/UL (140-415); RED BLOOD COUNT 4.29 10^6/ul (4.20-5.40); RED CELL DISTRIBUTION WIDTH 17.6 % (11.5-14.5)
[2017-09-26 05:04] LABS: WHITE BLOOD COUNT 8.4 10^3/ul (4.8-10.8)
[2017-09-26 05:28] LABS: ANION GAP 13 (8-16); BLOOD UREA NITROGEN 12 mg/dl (7-20); CALCIUM 9.1 mg/dl (8.4-10.2); CARBON DIOXIDE 29 mmol/L (21-31); CHLORIDE 103 mmol/L (97-110); CREATININE 0.68 mg/dl (0.44-1.00); GLUCOSE 115 mg/dl (70-220); POTASSIUM 3.7 mmol/L (3.5-5.1); SODIUM 141 mmol/L (135-144)
[2017-09-26] MEDS: PANTOPRAZOLE (EC) 40 MG TAB PO ×2 (06:12→18:16)
[2017-09-26 06:50] LABS: IRON 35 ug/dl (35-150)
[2017-09-26 06:59] LABS: % IRON SATURATION 14 % SAT (22-52); TOTAL IRON BINDING CAPACITY 247 ug/dl (241-421)
== END 2017-09-26 19:10 | disposition home health service (06) | DRG 982 ==
LOC: MS1 23:56 → FTE 16:30
PROC: 0D778DZ Dilation of Stomach, Pylorus with Intraluminal Device, Via Natural or Artificial Opening Endoscopic (ICD-10-PCS; principal; 2017-09-03 15:00)
PROC: 0UB04ZX Excision of Right Ovary, Percutaneous Endoscopic Approach, Diagnostic (ICD-10-PCS; 2017-09-03 15:00)
PROC: 0UB94ZX Excision of Uterus, Percutaneous Endoscopic Approach, Diagnostic (ICD-10-PCS; 2017-09-03 15:00)
PROC: 0DB78ZX Excision of Stomach, Pylorus, Via Natural or Artificial Opening Endoscopic, Diagnostic (ICD-10-PCS; 2017-09-03 15:00)
PROC: 0DB64ZX Excision of Stomach, Percutaneous Endoscopic Approach, Diagnostic (ICD-10-PCS; 2017-09-03 15:00)
PROC: 0DBP4ZX Excision of Rectum, Percutaneous Endoscopic Approach, Diagnostic (ICD-10-PCS; 2017-09-03 15:00)
PROC: 0DHA3UZ Insertion of Feeding Device into Jejunum, Percutaneous Approach (ICD-10-PCS; 2017-09-03 15:00)
DX: C16.8 Malignant neoplasm of overlapping sites of stomach (principal); E44.0 Moderate protein-calorie malnutrition; C78.6 Secondary malignant neoplasm of retroperitoneum and peritoneum; C79.82 Secondary malignant neoplasm of genital organs; C78.5 Secondary malignant neoplasm of large intestine and rectum; N39.0 Urinary tract infection, site not specified; B96.20 Unspecified Escherichia coli [E. coli] as the cause of diseases classified elsewhere; K31.89 Other diseases of stomach and duodenum; D64.9 Anemia, unspecified; Z68.33 Body mass index [BMI] 33.0-33.9, adult
CPT/HCPCS: 36415; 71045; 71260; 74176; 74177; 74240; 74250; 74330; 76705; 80048; 80053; 81001; 82270; 82378; 82728; 83540; 83690; 83735; 84100; 84134; 84484; 84703; 85025; 85610; 86301; 86304; 87086; 88104; 88305; 88307; 88312; 88313; 88341; 88342; 93005; 96374; 96375; 99285-25

== ENCOUNTER 2017-09-28 12:04 | Observation (INO) | payer MEDICAID ==
[2017-09-28] MEDS: DIATR MEGLU/DIATRIZOATE SODIUM 120 ML BTL (17:29)
[2017-09-28 18:48] LABS: ADD MAN DIFF? NO
[2017-09-28 18:52] LABS: BASOPHILS % 0.4 % (0.0-2.0); EOSINOPHILS # 0.1 10^3/ul (0.0-0.5); EOSINOPHILS % 0.9 % (0.0-7.0); HEMOGLOBIN 11.9 g/dl (12.0-16.0); LYMPHOCYTES # 1.5 10^3/ul (0.8-2.9); LYMPHOCYTES % 14.5 % (15.0-51.0); MEAN CORPUSCULAR HEMOGLOBIN 26.2 pg (29.0-33.0); MEAN CORPUSCULAR HGB CONC 32.2 g/dl (32.0-37.0); MEAN CORPUSCULAR VOLUME 81.3 fl (82.0-101.0); MEAN PLATELET VOLUME 10.7 fl (7.4-10.4); MONOCYTE # 0.7 10^3/ul (0.3-0.9); MONOCYTES % 6.7 % (0.0-11.0); NEUTROPHILS % 77.2 % (39.0-77.0); PLATELET COUNT 370 10^3/UL (140-415); RED BLOOD COUNT 4.55 10^6/ul (4.20-5.40); RED CELL DISTRIBUTION WIDTH 18.1 % (11.5-14.5)
[2017-09-28 18:52] LABS: WHITE BLOOD COUNT 10.4 10^3/ul (4.8-10.8)
[2017-09-28 19:07] LABS: INR 0.97
[2017-09-28 19:08] LABS: PARTIAL THROMBOPLASTIN TIME 27.5 Sec (25.0-35.0)
[2017-09-28 19:09] LABS: ANION GAP 16 (8-16); BLOOD UREA NITROGEN 15 mg/dl (7-20); CARBON DIOXIDE 27 mmol/L (21-31); CHLORIDE 102 mmol/L (97-110); CREATININE 0.65 mg/dl (0.44-1.00); GLUCOSE 104 mg/dl (70-220); SODIUM 141 mmol/L (135-144)
[2017-09-28 19:30] LABS: ADD UMIC NO; UR ASCORBIC ACID 40 mg/dL (NEGATIVE); UR BILIRUBIN (Dip) NEGATIVE (NEGATIVE); UR BLOOD (Dip) NEGATIVE (NEGATIVE); UR CLARITY CLEAR (CLEAR); UR COLOR YELLOW (YELLOW); UR GLUCOSE (Dip) NEGATIVE (NEGATIVE); UR KETONES (Dip) NEGATIVE (NEGATIVE); UR LEUKOCYTE ESTERASE (Dip) NEGATIVE Leu/ul (NEGATIVE); UR NITRITE (Dip) NEGATIVE (NEGATIVE); UR SPECIFIC GRAVITY (Dip) 1.009 (1.003-1.030); UR TOTAL PROTEIN (Dip) NEGATIVE (NEGATIVE); UR UROBILINOGEN (Dip) NEGATIVE (NEGATIVE)
[2017-09-28] MEDS ORDERED: ONDANSETRON 4 MG TAB PO ×2 (19:30)
[2017-09-28] MEDS ORDERED: morphine 2 MG INJ IV (19:30)
[2017-09-28] MEDS ORDERED: ACETAMINOPHEN 325 MG TAB PO (19:30)
[2017-09-28] MEDS ORDERED: NACL 0.9% 3 ML SYG IV (19:30)
[2017-09-28] MEDS ORDERED: ONDANSETRON 4 MG INJ IV ×2 (19:30)
[2017-09-28] MEDS: HYDROCODONE/APAP (5/325) TAB PO (20:59)
[2017-09-29] MEDS: PANTOPRAZOLE (EC) 40 MG TAB PO ×2 (05:26→18:00)
[2017-09-29 05:53] LABS: ADD MAN DIFF? NO
[2017-09-29 05:59] LABS: WHITE BLOOD COUNT 7.7 10^3/ul (4.8-10.8)
[2017-09-29 05:59] LABS: BASOPHILS % 0.5 % (0.0-2.0); EOSINOPHILS # 0.2 10^3/ul (0.0-0.5); EOSINOPHILS % 3.1 % (0.0-7.0); HEMATOCRIT 35.3 % (37.0-47.0); HEMOGLOBIN 11.2 g/dl (12.0-16.0); LYMPHOCYTES # 1.7 10^3/ul (0.8-2.9); MEAN CORPUSCULAR HGB CONC 31.7 g/dl (32.0-37.0); MEAN CORPUSCULAR VOLUME 81.9 fl (82.0-101.0); MEAN PLATELET VOLUME 10.6 fl (7.4-10.4); MONOCYTE # 0.7 10^3/ul (0.3-0.9); MONOCYTES % 9.4 % (0.0-11.0); NEUTROPHILS % 64.7 % (39.0-77.0); PLATELET COUNT 322 10^3/UL (140-415); RED BLOOD COUNT 4.31 10^6/ul (4.20-5.40); RED CELL DISTRIBUTION WIDTH 18.3 % (11.5-14.5)
[2017-09-29 06:26] LABS: ANION GAP 11 (8-16); BLOOD UREA NITROGEN 13 mg/dl (7-20); CARBON DIOXIDE 30 mmol/L (21-31); CHLORIDE 104 mmol/L (97-110); CREATININE 0.78 mg/dl (0.44-1.00); GLUCOSE 99 mg/dl (70-220); MAGNESIUM 2.1 mg/dl (1.7-2.5); PHOSPHORUS 4.5 mg/dl (2.5-4.9); POTASSIUM 4.3 mmol/L (3.5-5.1); SODIUM 141 mmol/L (135-144)
[2017-09-29] MEDS: IOHEXOL 350MG/ML 50 ML BTL (16:11)
[2017-09-29] MEDS: LIDOCAINE 1% (MDV) 20 ML INJ (16:40)
[2017-09-30] MEDS: PANTOPRAZOLE (EC) 40 MG TAB PO ×2 (06:01→17:29)
[2017-09-30] MEDS: ACETAMINOPHEN 325 MG TAB PO (11:54)
== END 2017-09-30 20:08 | disposition home or self-care (01) ==
LOC: PP2 21:00 → E/R 12:04 → PP2 19:22
DX: K94.13 Enterostomy malfunction (principal); C16.9 Malignant neoplasm of stomach, unspecified; C80.0 Disseminated malignant neoplasm, unspecified; E66.9 Obesity, unspecified; Z68.30 Body mass index [BMI] 30.0-30.9, adult; Y83.3 Surgical operation with formation of external stoma as the cause of abnormal reaction of the patient, or of later complication, without mention of misadventure at the time of the procedure
CPT/HCPCS: 74018; 75984; 80048; 81003; 83735; 84100; 85025; 85610; 85730; 99285-25; G0378

== ENCOUNTER 2017-11-06 12:16 | Emergency (ER) | payer MEDICAID ==
[2017-11-06] MEDS: HYDROmorphONE 0.5 MG/0.5 ML SYG IV ×2 (15:16→17:14)
[2017-11-06] MEDS: SOD CHLORIDE 0.9% 1,000 ML IV (15:16)
[2017-11-06] MEDS: ONDANSETRON 4 MG INJ IV ×2 (15:16→17:14)
[2017-11-06 15:32] LABS: ADD MAN DIFF? NO
[2017-11-06 15:34] LABS: BASOPHILS % 0.4 % (0.0-2.0); HEMATOCRIT 40.1 % (37.0-47.0); HEMOGLOBIN 13.4 g/dl (12.0-16.0); LYMPHOCYTES # 0.9 10^3/ul (0.8-2.9); LYMPHOCYTES % 8.5 % (15.0-51.0); MEAN CORPUSCULAR HEMOGLOBIN 27.2 pg (29.0-33.0); MEAN CORPUSCULAR HGB CONC 33.4 g/dl (32.0-37.0); MEAN CORPUSCULAR VOLUME 81.3 fl (82.0-101.0); MEAN PLATELET VOLUME 9.2 fl (7.4-10.4); MONOCYTE # 0.7 10^3/ul (0.3-0.9); MONOCYTES % 6.5 % (0.0-11.0); NEUTROPHIL # 8.4 10^3/ul (1.6-7.5); NEUTROPHILS % 84.3 % (39.0-77.0); PLATELET COUNT 391 10^3/UL (140-415); RED BLOOD COUNT 4.93 10^6/ul (4.20-5.40); RED CELL DISTRIBUTION WIDTH 17.5 % (11.5-14.5)
[2017-11-06 15:45] LABS: ADD UMIC YES; UR ASCORBIC ACID 40 mg/dL (NEGATIVE); UR BILIRUBIN (Dip) NEGATIVE (NEGATIVE); UR BLOOD (Dip) NEGATIVE (NEGATIVE); UR CALCIUM OXALATE CRYSTAL MANY /HPF (NONE SEEN); UR CLARITY SLIGHTLY CLOUDY (CLEAR); UR COLOR RED (YELLOW); UR GLUCOSE (Dip) 1+ mg/dL (NEGATIVE); UR KETONES (Dip) TRACE mg/dL (NEGATIVE); UR LEUKOCYTE ESTERASE (Dip) 1+ Leu/ul (NEGATIVE); UR MUCUS FEW /HPF (NONE SEEN); UR NITRITE (Dip) NEGATIVE (NEGATIVE); UR RBC 2 /HPF (0-5); UR SPECIFIC GRAVITY (Dip) 1.017 (1.003-1.030); UR SQUAMOUS EPITHELIAL CELL MODERATE /HPF (FEW); UR TOTAL PROTEIN (Dip) NEGATIVE (NEGATIVE); UR UROBILINOGEN (Dip) NEGATIVE (NEGATIVE); UR WBC 20 /HPF (0-5)
[2017-11-06 15:53] LABS: ALANINE AMINOTRANSFERASE 54 IU/L (13-69); ALBUMIN 3.3 g/dl (3.3-4.9); ALBUMIN/GLOBULIN RATIO 0.91; ALKALINE PHOSPHATASE 119 IU/L (42-121); ANION GAP 15 (8-16); ASPARTATE AMINO TRANSFERASE 52 IU/L (15-46); BLOOD UREA NITROGEN 10 mg/dl (7-20); CALCIUM 8.8 mg/dl (8.4-10.2); CARBON DIOXIDE 26 mmol/L (21-31); CHLORIDE 100 mmol/L (97-110); CREATININE 0.65 mg/dl (0.44-1.00); GLUCOSE 101 mg/dl (70-220); LIPASE 86 U/L (23-300); POTASSIUM 3.6 mmol/L (3.5-5.1); SODIUM 137 mmol/L (135-144); TOTAL PROTEIN 6.9 g/dl (6.1-8.1)
[2017-11-06] MEDS: SOD CHLORIDE 0.9% 100 ML (16:48)
[2017-11-06] MEDS: IOHEXOL 300MG/ML 150 ML BTL (16:48)
== END 2017-11-06 19:42 | disposition home or self-care (01) ==
LOC: E/R 12:16
DX: R10.30 Lower abdominal pain, unspecified (principal); N94.6 Dysmenorrhea, unspecified; Z85.028 Personal history of other malignant neoplasm of stomach
CPT/HCPCS: 36415; 74177; 80053; 81001; 83690; 85025; 96374; 96375; 96376; 99285-25

== ENCOUNTER 2018-02-28 20:40 | Inpatient (IN) | payer MEDICAID ==
[2018-02-28] MEDS: SOD CHLORIDE 0.9% 1,000 ML IV (21:45)
[2018-02-28] MEDS: HYDROmorphONE 1 MG/ML SYG IV (21:45)
[2018-02-28] MEDS: ONDANSETRON 4 MG INJ IV (21:45)
[2018-02-28 22:03] LABS: WHITE BLOOD COUNT 7.9 10^3/ul (4.8-10.8)
[2018-02-28 22:03] LABS: ABNORMAL IP MESSAGE 1; HEMATOCRIT 30.1 % (37.0-47.0); HEMOGLOBIN 10.3 g/dl (12.0-16.0); MEAN CORPUSCULAR HEMOGLOBIN 30.9 pg (29.0-33.0); MEAN CORPUSCULAR HGB CONC 34.2 g/dl (32.0-37.0); MEAN CORPUSCULAR VOLUME 90.4 fl (82.0-101.0); MEAN PLATELET VOLUME 9.6 fl (7.4-10.4); RED BLOOD COUNT 3.33 10^6/ul (4.20-5.40); RED CELL DISTRIBUTION WIDTH 17.1 % (11.5-14.5)
[2018-02-28 22:20] LABS: ALANINE AMINOTRANSFERASE 54 IU/L (13-69); ALBUMIN 1.9 g/dl (3.3-4.9); ALBUMIN/GLOBULIN RATIO 0.47; ALKALINE PHOSPHATASE 228 IU/L (42-121); ANION GAP 12 (8-16); ASPARTATE AMINO TRANSFERASE 66 IU/L (15-46); BILIRUBIN,INDIRECT 0.4 mg/dl (0-1.1); BILIRUBIN,TOTAL 0.4 mg/dl (0.2-1.3); BLOOD UREA NITROGEN 18 mg/dl (7-20); CALCIUM 7.3 mg/dl (8.4-10.2); CARBON DIOXIDE 25 mmol/L (21-31); CHLORIDE 101 mmol/L (97-110); CREATININE 0.61 mg/dl (0.44-1.00); GLUCOSE 87 mg/dl (70-220); LIPASE 46 U/L (23-300); POTASSIUM 3.1 mmol/L (3.5-5.1); SODIUM 135 mmol/L (135-144); TOTAL PROTEIN 5.9 g/dl (6.1-8.1)
[2018-02-28 22:25] LABS: PLATELET COUNT 94 10^3/UL (140-415); POSITIVE DIFF @See below
[2018-02-28 22:26] LABS: ADD MAN DIFF? YES
[2018-02-28 22:31] LABS: INR 1.72; PARTIAL THROMBOPLASTIN TIME 39.4 Sec (25.0-35.0); PROTIME 20.5 Sec (11.9-14.9); PT RATIO 1.6
[2018-02-28] MEDS ORDERED: POTASSIUM CHLORIDE (SR) 20 MEQ TAB PO (22:45)
[2018-02-28 22:46] LABS: BASOPHILS % 0.5 % (0.0-2.0); EOSINOPHILS % 0.3 % (0.0-7.0); LYMPHOCYTES % 15.8 % (15.0-51.0); MONOCYTES % 7.4 % (0.0-11.0); NEUTROPHILS % 75.5 % (39.0-77.0)
[2018-02-28 22:47] LABS: LYMPHOCYTES % (M) 1 % (15-51); MONOCYTES % (M) 1 % (0-11); SEGMENTED NEUTROPHILS (M) % 6 % (39-77)
[2018-02-28] MEDS: CALCIUM GLUCONATE 10% 1 GM in DEXTROSE 5% 100 ML IVPB (23:30)
[2018-02-28] MEDS: POTASSIUM CHLORIDE 20 MEQ POWDER FOR ORAL SOLN PO (23:30)
[2018-03-01] MEDS ORDERED: BISACODYL (EC) 5 MG TAB PO (00:30)
[2018-03-01] MEDS ORDERED: HYDROmorphONE 0.5 MG/0.5 ML SYG IV (00:30)
[2018-03-01] MEDS ORDERED: ACETAMINOPHEN 325 MG TAB PO (00:30)
[2018-03-01] MEDS ORDERED: DOCUSATE SODIUM 100 MG CAP PO (00:30)
[2018-03-01] MEDS ORDERED: NACL 0.9% 3 ML SYG IV (00:30)
[2018-03-01] MEDS ORDERED: HYDROmorphONE 1 MG/ML SYG IV (00:30)
[2018-03-01] MEDS ORDERED: ALBUTEROL/IPRATROPIUM (NEB) 3 ML AMP HHN (00:30)
[2018-03-01] MEDS ORDERED: ACETAMINOPHEN 650 MG SUPP PR (00:30)
[2018-03-01 01:02] LABS: ADD UMIC YES; UR ASCORBIC ACID NEGATIVE (NEGATIVE); UR BILIRUBIN (Dip) 1+ mg/dL (NEGATIVE); UR BLOOD (Dip) NEGATIVE (NEGATIVE); UR CLARITY SLIGHTLY CLOUDY (CLEAR); UR COLOR AMBER (YELLOW); UR GLUCOSE (Dip) NEGATIVE (NEGATIVE); UR KETONES (Dip) TRACE mg/dL (NEGATIVE); UR LEUKOCYTE ESTERASE (Dip) 2+ Leu/ul (NEGATIVE); UR MUCUS MANY /HPF (NONE SEEN); UR NITRITE (Dip) NEGATIVE (NEGATIVE); UR RBC 9 /HPF (0-5); UR SPECIFIC GRAVITY (Dip) 1.023 (1.003-1.030); UR SQUAMOUS EPITHELIAL CELL FEW /HPF (FEW); UR TOTAL PROTEIN (Dip) 1+ mg/dl (NEGATIVE); UR UROBILINOGEN (Dip) 2+ mg/dL (NEGATIVE); UR WBC 16 /HPF (0-5)
[2018-03-01] MEDS: SOD CHLORIDE 0.9% 1,000 ML IV ×2 (01:30→14:45)
[2018-03-01] MEDS: ONDANSETRON 4 MG INJ IV (02:49)
[2018-03-01] MEDS: METOCLOPRAMIDE 10 MG INJ IV ×2 (02:49→18:23)
[2018-03-01] MEDS ORDERED: CEFTRIAXONE 1 GM/50 ML (PMX) 50 ML IVPB (03:00)
[2018-03-01 04:20] LABS: ADD MAN DIFF? NO
[2018-03-01 04:23] LABS: BASOPHILS % 0.3 % (0.0-2.0); HEMATOCRIT 28.8 % (37.0-47.0); HEMOGLOBIN 9.8 g/dl (12.0-16.0); LYMPHOCYTES # 1.2 10^3/ul (0.8-2.9); LYMPHOCYTES % 11.8 % (15.0-51.0); MEAN CORPUSCULAR HEMOGLOBIN 31.7 pg (29.0-33.0); MEAN CORPUSCULAR VOLUME 93.2 fl (82.0-101.0); MEAN PLATELET VOLUME 9.8 fl (7.4-10.4); MONOCYTE # 0.7 10^3/ul (0.3-0.9); NEUTROPHIL # 7.8 10^3/ul (1.6-7.5); NEUTROPHILS % 80.4 % (39.0-77.0); PLATELET COUNT 223 10^3/UL (140-415); RED BLOOD COUNT 3.09 10^6/ul (4.20-5.40); RED CELL DISTRIBUTION WIDTH 17.5 % (11.5-14.5)
[2018-03-01 04:23] LABS: WHITE BLOOD COUNT 9.7 10^3/ul (4.8-10.8)
[2018-03-01 04:50] LABS: ALANINE AMINOTRANSFERASE 53 IU/L (13-69); ALBUMIN 1.8 g/dl (3.3-4.9); ALBUMIN/GLOBULIN RATIO 0.47; ALKALINE PHOSPHATASE 216 IU/L (42-121); ANION GAP 11 (8-16); ASPARTATE AMINO TRANSFERASE 62 IU/L (15-46); BILIRUBIN,INDIRECT 0.4 mg/dl (0-1.1); BILIRUBIN,TOTAL 0.4 mg/dl (0.2-1.3); BLOOD UREA NITROGEN 18 mg/dl (7-20); CALCIUM 7.3 mg/dl (8.4-10.2); CARBON DIOXIDE 25 mmol/L (21-31); CHLORIDE 105 mmol/L (97-110); CREATININE 0.64 mg/dl (0.44-1.00); GLUCOSE 88 mg/dl (70-220); POTASSIUM 4.2 mmol/L (3.5-5.1); SODIUM 137 mmol/L (135-144); TOTAL PROTEIN 5.6 g/dl (6.1-8.1)
[2018-03-01] MEDS: SOD CHLORIDE 0.9% 500 ML IV (05:19)
[2018-03-01] MEDS: CEFTRIAXONE 1 GM/50 ML (PMX) 50 ML IVPB (05:19)
[2018-03-01] MEDS: PANTOPRAZOLE 40 MG INJ IV (05:19)
[2018-03-01 08:31] LABS: TYPE AND SCREEN 1 1
[2018-03-01] MEDS: LIDOCAINE/MYLANTA 40 ML BTL PO (09:56)
[2018-03-01] MEDS ORDERED: HYDROCODONE/APAP (10/325) TAB PO (12:00)
[2018-03-01] MEDS ORDERED: ONDANSETRON 4 MG TAB PO (12:00)
[2018-03-01] MEDS: LIDOCAINE 1% (MDV) 10 ML INJ (14:13)
[2018-03-01 16:35] LABS: FLD MN% 84.4 %; FLD PMN% 15.6 %; FLD RBC 1000 /uL; FLD WBC 141 /cmm
[2018-03-01 17:04] LABS: FLUID LD 1052 U/L; FLUID TYPE THORACENTESIS FLUID
[2018-03-01 17:05] LABS: FLUID TOTAL PROTEIN < 2.0 g/dl
[2018-03-01 17:53] LABS: FLD TYPE THORACENTHESIS
[2018-03-01 17:53] LABS: FLD CLARITY HAZY; FLD COLOR YELLOW
[2018-03-02] MEDS: METOCLOPRAMIDE 10 MG INJ IV ×5 (00:57→23:59)
[2018-03-02] MEDS ORDERED: PENDING SANTYL ORDER FOR WOUND CARE XX (03:30)
[2018-03-02] MEDS: PANTOPRAZOLE (EC) 40 MG TAB PO (08:47)
[2018-03-02] MEDS: DIATR MEGLU/DIATRIZOATE SODIUM 120 ML BTL (13:02)
[2018-03-02 13:38] LABS: PROTIME 19.4 Sec (11.9-14.9); PT RATIO 1.5
[2018-03-02] MEDS: LIDOCAINE 1% (MDV) 10 ML INJ (16:01)
[2018-03-02 16:42] LABS: FLD MN% 85.9 %; FLD PMN% 14.1 %; FLD RBC 1000 /uL; FLD WBC 121 /cmm
[2018-03-02 17:09] LABS: FLUID GLUCOSE 40 mg/dl; FLUID TOTAL PROTEIN < 2.0 g/dl; FLUID TYPE PARACENTESIS FLUID
[2018-03-02 17:10] LABS: FLUID LD 1336 U/L; FLUID TYPE PARACENTESIS FLUID
[2018-03-02 17:31] LABS: FLUID AMYLASE < 3 U/L; FLUID TYPE PARACENTESIS FLUID
[2018-03-02 18:09] LABS: FLD TYPE PARACENTHESIS
[2018-03-02 18:09] LABS: FLD CLARITY HAZY; FLD COLOR YELLOW
[2018-03-02] MEDS: CIPROFLOXACIN 250 MG TAB GTB (18:30)
[2018-03-02] MEDS: SOD CHLORIDE 0.9% 1,000 ML IV (21:25)
[2018-03-03 05:50] LABS: ADD MAN DIFF? NO
[2018-03-03 05:54] LABS: WHITE BLOOD COUNT 6.1 10^3/ul (4.8-10.8)
[2018-03-03 05:54] LABS: BASOPHILS % 0.5 % (0.0-2.0); EOSINOPHILS % 0.3 % (0.0-7.0); HEMATOCRIT 24.7 % (37.0-47.0); HEMOGLOBIN 8.3 g/dl (12.0-16.0); LYMPHOCYTES # 0.8 10^3/ul (0.8-2.9); LYMPHOCYTES % 13.7 % (15.0-51.0); MEAN CORPUSCULAR HEMOGLOBIN 31.7 pg (29.0-33.0); MEAN CORPUSCULAR HGB CONC 33.6 g/dl (32.0-37.0); MEAN CORPUSCULAR VOLUME 94.3 fl (82.0-101.0); MEAN PLATELET VOLUME 9.6 fl (7.4-10.4); MONOCYTE # 0.6 10^3/ul (0.3-0.9); MONOCYTES % 9.5 % (0.0-11.0); NEUTROPHIL # 4.6 10^3/ul (1.6-7.5); NEUTROPHILS % 75.5 % (39.0-77.0); PLATELET COUNT 166 10^3/UL (140-415); RED BLOOD COUNT 2.62 10^6/ul (4.20-5.40)
[2018-03-03] MEDS: CIPROFLOXACIN 250 MG TAB GTB ×2 (06:01→17:54)
[2018-03-03] MEDS: METOCLOPRAMIDE 10 MG INJ IV ×3 (06:01→17:54)
[2018-03-03 06:43] LABS: PHOSPHORUS 3.3 mg/dl (2.5-4.9)
[2018-03-03 06:44] LABS: ANION GAP 9 (8-16); BLOOD UREA NITROGEN 12 mg/dl (7-20); CALCIUM 7.1 mg/dl (8.4-10.2); CARBON DIOXIDE 25 mmol/L (21-31); CHLORIDE 111 mmol/L (97-110); CREATININE 0.65 mg/dl (0.44-1.00); GLUCOSE 60 mg/dl (70-220); SODIUM 141 mmol/L (135-144)
[2018-03-03] MEDS: PANTOPRAZOLE (EC) 40 MG TAB PO (09:16)
[2018-03-03] MEDS: SOD CHLORIDE 0.9% 1,000 ML IV (21:54)
[2018-03-04] MEDS: METOCLOPRAMIDE 10 MG INJ IV ×4 (00:16→17:37)
[2018-03-04] MEDS: CIPROFLOXACIN 250 MG TAB GTB (05:44)
[2018-03-04] MEDS: PANTOPRAZOLE (EC) 40 MG TAB PO (08:27)
[2018-03-04] MEDS: ONDANSETRON 4 MG INJ IV (09:22)
[2018-03-04] MEDS: SOD CHLORIDE 0.9% 1,000 ML IV (20:25)
[2018-03-04] MEDS: CIPROFLOXACIN 200 MG/D5W IVPB 100 ML IVPB (20:25)
[2018-03-04] MEDS: NYSTATIN 30 GM POWDER BTL TOP (22:07)
[2018-03-04] MEDS: DEXTROSE 5%-0.45% NACL 1,000 ML IV (22:07)
[2018-03-05] MEDS: METOCLOPRAMIDE 10 MG INJ IV ×4 (00:18→18:00)
[2018-03-05] MEDS: CIPROFLOXACIN 200 MG/D5W IVPB 100 ML IVPB ×2 (08:23→20:27)
[2018-03-05] MEDS: PANTOPRAZOLE (EC) 40 MG TAB PO (08:23)
[2018-03-05] MEDS: NYSTATIN 30 GM POWDER BTL TOP ×2 (08:24→20:27)
[2018-03-05] MEDS: ONDANSETRON 4 MG INJ IV (10:39)
[2018-03-05] MEDS: PANTOPRAZOLE 40 MG INJ IV (12:39)
[2018-03-05] MEDS: DEXTROSE 5%-0.45% NACL 1,000 ML IV (21:00)
[2018-03-06] MEDS: METOCLOPRAMIDE 10 MG INJ IV ×4 (00:22→18:54)
[2018-03-06] MEDS: HYDROmorphONE 0.5 MG/0.5 ML SYG IV (00:26)
[2018-03-06] MEDS: PANTOPRAZOLE 40 MG INJ IV (05:17)
[2018-03-06] MEDS: DEXTROSE 5%-0.45% NACL 1,000 ML IV ×2 (05:19→21:00)
[2018-03-06] MEDS: CIPROFLOXACIN 200 MG/D5W IVPB 100 ML IVPB ×2 (08:19→21:38)
[2018-03-06] MEDS: NYSTATIN 30 GM POWDER BTL TOP ×2 (08:20→21:38)
[2018-03-06] MEDS: *CONTINUE SAME TPN IV (10:30)
[2018-03-06 11:29] LABS: ALANINE AMINOTRANSFERASE 59 IU/L (13-69); ALBUMIN 1.7 g/dl (3.3-4.9); ALBUMIN/GLOBULIN RATIO 0.48; ALKALINE PHOSPHATASE 179 IU/L (42-121); ANION GAP 8 (8-16); ASPARTATE AMINO TRANSFERASE 48 IU/L (15-46); BILIRUBIN,INDIRECT 0.4 mg/dl (0-1.1); BILIRUBIN,TOTAL 0.4 mg/dl (0.2-1.3); BLOOD UREA NITROGEN 15 mg/dl (7-20); CALCIUM 7.5 mg/dl (8.4-10.2); CARBON DIOXIDE 22 mmol/L (21-31); CHLORIDE 109 mmol/L (97-110); CREATININE 0.69 mg/dl (0.44-1.00); GLUCOSE 124 mg/dl (70-220); POTASSIUM 3.2 mmol/L (3.5-5.1); SODIUM 136 mmol/L (135-144); TOTAL PROTEIN 5.2 g/dl (6.1-8.1)
[2018-03-06] MEDS: TPN 1,000 ML IV (17:53)
[2018-03-06] MEDS: POTASSIUM CHLORIDE 50 ML IVPB ×3 (17:53→21:35)
[2018-03-07] MEDS: METOCLOPRAMIDE 10 MG INJ IV ×4 (00:21→17:41)
[2018-03-07] MEDS: PANTOPRAZOLE 40 MG INJ IV (05:14)
[2018-03-07 07:23] LABS: ANION GAP 6 (8-16); BLOOD UREA NITROGEN 15 mg/dl (7-20); CALCIUM 7.3 mg/dl (8.4-10.2); CARBON DIOXIDE 21 mmol/L (21-31); CHLORIDE 111 mmol/L (97-110); CREATININE 0.62 mg/dl (0.44-1.00); GLUCOSE 100 mg/dl (70-220); POTASSIUM 3.8 mmol/L (3.5-5.1); SODIUM 134 mmol/L (135-144)
[2018-03-07] MEDS: MIDAZOLAM 1 MG/ML 2 ML INJ (07:40)
[2018-03-07] MEDS: FENTAnyl 50 MCG/ML VIAL (07:40)
[2018-03-07] MEDS: LIDOCAINE 4% SOLUTION 50 ML BTL (07:40)
[2018-03-07] MEDS: FLUMAZENIL 0.5 MG INJ (07:41)
[2018-03-07] MEDS ORDERED: ACCU-CHEK XX (09:00)
[2018-03-07] MEDS: CIPROFLOXACIN 200 MG/D5W IVPB 100 ML IVPB ×2 (10:01→22:10)
[2018-03-07] MEDS: ACCU-CHEK XX ×4 (10:02→21:44)
[2018-03-07] MEDS: NYSTATIN 30 GM POWDER BTL TOP ×2 (10:02→21:45)
[2018-03-07] MEDS: ONDANSETRON 4 MG INJ IV (10:16)
[2018-03-07 10:44] LABS: PHOSPHORUS 2.8 mg/dl (2.5-4.9)
[2018-03-07 10:44] LABS: MAGNESIUM 1.9 mg/dl (1.7-2.5)
[2018-03-07] MEDS: DEXTROSE 5%-0.45% NACL 1,000 ML IV ×2 (15:49→21:00)
[2018-03-07] MEDS: TPN 1,000 ML IV (17:39)
[2018-03-08] MEDS: METOCLOPRAMIDE 10 MG INJ IV ×4 (00:37→17:48)
[2018-03-08] MEDS: ACCU-CHEK XX ×6 (01:34→21:00)
[2018-03-08] MEDS: PANTOPRAZOLE 40 MG INJ IV (05:28)
[2018-03-08 06:10] LABS: ADD MAN DIFF? NO
[2018-03-08 06:19] LABS: WHITE BLOOD COUNT 9.6 10^3/ul (4.8-10.8)
[2018-03-08 06:19] LABS: BASOPHILS % 0.1 % (0.0-2.0); EOSINOPHILS # 0.1 10^3/ul (0.0-0.5); HEMATOCRIT 27.6 % (37.0-47.0); HEMOGLOBIN 9.2 g/dl (12.0-16.0); LYMPHOCYTES # 1.2 10^3/ul (0.8-2.9); LYMPHOCYTES % 12.6 % (15.0-51.0); MEAN CORPUSCULAR HEMOGLOBIN 30.9 pg (29.0-33.0); MEAN CORPUSCULAR HGB CONC 33.3 g/dl (32.0-37.0); MEAN CORPUSCULAR VOLUME 92.6 fl (82.0-101.0); MEAN PLATELET VOLUME 10.3 fl (7.4-10.4); MONOCYTE # 0.9 10^3/ul (0.3-0.9); MONOCYTES % 8.9 % (0.0-11.0); NEUTROPHIL # 7.3 10^3/ul (1.6-7.5); NEUTROPHILS % 75.9 % (39.0-77.0); PLATELET COUNT 155 10^3/UL (140-415); RED BLOOD COUNT 2.98 10^6/ul (4.20-5.40); RED CELL DISTRIBUTION WIDTH 17.9 % (11.5-14.5)
[2018-03-08] MEDS: ONDANSETRON 4 MG INJ IV ×2 (06:19→16:15)
[2018-03-08 06:57] LABS: PHOSPHORUS 1.5 mg/dl (2.5-4.9)
[2018-03-08 06:57] LABS: MAGNESIUM 1.6 mg/dl (1.7-2.5)
[2018-03-08 07:00] LABS: ANION GAP 8 (8-16); BLOOD UREA NITROGEN 11 mg/dl (7-20); CALCIUM 6.9 mg/dl (8.4-10.2); CARBON DIOXIDE 25 mmol/L (21-31); CHLORIDE 105 mmol/L (97-110); CREATININE 0.46 mg/dl (0.44-1.00); GLUCOSE 101 mg/dl (70-220); POTASSIUM 3.6 mmol/L (3.5-5.1); SODIUM 134 mmol/L (135-144)
[2018-03-08] MEDS: TPN 1,000 ML IV ×2 (08:44→10:30)
[2018-03-08] MEDS: NYSTATIN 30 GM POWDER BTL TOP ×2 (08:59→20:31)
[2018-03-08] MEDS: CIPROFLOXACIN 200 MG/D5W IVPB 100 ML IVPB ×2 (08:59→20:31)
[2018-03-08] MEDS: MAGNESIUM SULFATE 1 GM/D5W 100 ML IVPB (10:29)
[2018-03-08] MEDS: POTASSIUM PHOSPHATE 15 MM in SOD CHLORIDE 0.9% 250 ML IV (12:17)
[2018-03-09] MEDS: METOCLOPRAMIDE 10 MG INJ IV ×2 (00:39→05:43)
[2018-03-09] MEDS: ACCU-CHEK XX ×6 (00:39→20:39)
[2018-03-09] MEDS: TPN 1,000 ML IV ×2 (05:00→18:23)
[2018-03-09] MEDS: PANTOPRAZOLE 40 MG INJ IV (05:43)
[2018-03-09 06:15] LABS: ADD MAN DIFF? NO
[2018-03-09 06:20] LABS: WHITE BLOOD COUNT 8.3 10^3/ul (4.8-10.8)
[2018-03-09 06:20] LABS: BASOPHILS % 0.2 % (0.0-2.0); EOSINOPHILS # 0.1 10^3/ul (0.0-0.5); EOSINOPHILS % 0.8 % (0.0-7.0); HEMATOCRIT 28.2 % (37.0-47.0); HEMOGLOBIN 9.2 g/dl (12.0-16.0); LYMPHOCYTES # 1.4 10^3/ul (0.8-2.9); LYMPHOCYTES % 16.3 % (15.0-51.0); MEAN CORPUSCULAR HEMOGLOBIN 31.3 pg (29.0-33.0); MEAN CORPUSCULAR HGB CONC 32.6 g/dl (32.0-37.0); MEAN CORPUSCULAR VOLUME 95.9 fl (82.0-101.0); MEAN PLATELET VOLUME 9.7 fl (7.4-10.4); MONOCYTE # 0.7 10^3/ul (0.3-0.9); MONOCYTES % 8.5 % (0.0-11.0); NEUTROPHILS % 72.9 % (39.0-77.0); PLATELET COUNT 152 10^3/UL (140-415); RED BLOOD COUNT 2.94 10^6/ul (4.20-5.40); RED CELL DISTRIBUTION WIDTH 17.8 % (11.5-14.5)
[2018-03-09 06:38] LABS: ANION GAP 8 (8-16)
[2018-03-09 06:54] LABS: BLOOD UREA NITROGEN 11 mg/dl (7-20); CALCIUM 6.9 mg/dl (8.4-10.2); CARBON DIOXIDE 27 mmol/L (21-31); CHLORIDE 103 mmol/L (97-110); CREATININE 0.52 mg/dl (0.44-1.00); GLUCOSE 102 mg/dl (70-220); MAGNESIUM 1.7 mg/dl (1.7-2.5); PHOSPHORUS 2.1 mg/dl (2.5-4.9); POTASSIUM 3.8 mmol/L (3.5-5.1); SODIUM 134 mmol/L (135-144)
[2018-03-09] MEDS: CIPROFLOXACIN 200 MG/D5W IVPB 100 ML IVPB (08:39)
[2018-03-09] MEDS: NYSTATIN 30 GM POWDER BTL TOP ×2 (08:44→21:00)
[2018-03-09] MEDS: POTASSIUM PHOSPHATE 15 MM in SOD CHLORIDE 0.9% 250 ML IV (12:11)
[2018-03-09] MEDS: ONDANSETRON 4 MG INJ IV (18:59)
[2018-03-09] MEDS: SODIUM PHOSPHATE 40 MEQ in SOD CHLORIDE 0.9% 250 ML IVPB (21:47)
[2018-03-10] MEDS: TPN 1,000 ML IV ×3 (01:00→20:58)
[2018-03-10] MEDS: ACCU-CHEK XX ×6 (01:00→20:58)
[2018-03-10] MEDS: ONDANSETRON 4 MG INJ IV ×3 (01:20→18:18)
[2018-03-10 06:56] LABS: ANION GAP 6 (8-16); BLOOD UREA NITROGEN 12 mg/dl (7-20); CARBON DIOXIDE 29 mmol/L (21-31); CHLORIDE 106 mmol/L (97-110); CREATININE 0.52 mg/dl (0.44-1.00); GLUCOSE 114 mg/dl (70-220); MAGNESIUM 1.6 mg/dl (1.7-2.5); PHOSPHORUS 4.6 mg/dl (2.5-4.9); POTASSIUM 4.2 mmol/L (3.5-5.1); SODIUM 137 mmol/L (135-144)
[2018-03-10] MEDS: NYSTATIN 30 GM POWDER BTL TOP ×2 (08:56→20:59)
[2018-03-10] MEDS: MAGNESIUM SULFATE 2 GM/50 ML 50 ML IVPB (13:01)
[2018-03-10] MEDS ORDERED: LORAZEPAM 0.5 MG TAB SL (20:00)
[2018-03-10] MEDS ORDERED: LORAZEPAM 0.5 MG TAB PO (20:00)
[2018-03-10] MEDS: LORAZEPAM 2 MG INJ IV (21:26)
[2018-03-11] MEDS: ACCU-CHEK XX ×6 (01:19→21:00)
[2018-03-11] MEDS: ONDANSETRON 4 MG INJ IV ×4 (04:50→20:34)
[2018-03-11 06:04] LABS: ADD MAN DIFF? NO
[2018-03-11 06:39] LABS: ALANINE AMINOTRANSFERASE 34 IU/L (13-69); ALBUMIN 1.7 g/dl (3.3-4.9); ALBUMIN/GLOBULIN RATIO 0.58; ALKALINE PHOSPHATASE 132 IU/L (42-121); ANION GAP 5 (8-16); ASPARTATE AMINO TRANSFERASE 42 IU/L (15-46); CALCIUM 7.2 mg/dl (8.4-10.2); CARBON DIOXIDE 30 mmol/L (21-31); CHLORIDE 107 mmol/L (97-110); GLUCOSE 106 mg/dl (70-220); SODIUM 138 mmol/L (135-144); TOTAL PROTEIN 4.6 g/dl (6.1-8.1)
[2018-03-11 07:34] LABS: BLOOD UREA NITROGEN 13 mg/dl (7-20)
[2018-03-11 08:20] LABS: WHITE BLOOD COUNT 8.4 10^3/ul (4.8-10.8)
[2018-03-11 08:20] LABS: BASOPHIL # 0.1 10^3/ul (0.0-0.1); BASOPHILS % 0.6 % (0.0-2.0); EOSINOPHILS # 0.1 10^3/ul (0.0-0.5); EOSINOPHILS % 0.7 % (0.0-7.0); HEMATOCRIT 26.3 % (37.0-47.0); HEMOGLOBIN 8.8 g/dl (12.0-16.0); LYMPHOCYTES # 1.4 10^3/ul (0.8-2.9); LYMPHOCYTES % 16.1 % (15.0-51.0); MEAN CORPUSCULAR HEMOGLOBIN 32.2 pg (29.0-33.0); MEAN CORPUSCULAR HGB CONC 33.5 g/dl (32.0-37.0); MEAN CORPUSCULAR VOLUME 96.3 fl (82.0-101.0); MEAN PLATELET VOLUME 9.7 fl (7.4-10.4); MONOCYTE # 0.8 10^3/ul (0.3-0.9); MONOCYTES % 9.1 % (0.0-11.0); NEUTROPHIL # 6.2 10^3/ul (1.6-7.5); NEUTROPHILS % 72.9 % (39.0-77.0); PLATELET COUNT 177 10^3/UL (140-415); RED BLOOD COUNT 2.73 10^6/ul (4.20-5.40); RED CELL DISTRIBUTION WIDTH 17.4 % (11.5-14.5)
[2018-03-11] MEDS: NYSTATIN 30 GM POWDER BTL TOP ×2 (12:22→21:16)
[2018-03-11] MEDS: TPN 1,000 ML IV (14:23)
[2018-03-11] MEDS: LORAZEPAM 2 MG INJ IV (21:14)
[2018-03-12] MEDS: ACCU-CHEK XX ×3 (01:00→21:00)
[2018-03-12] MEDS: ONDANSETRON 4 MG INJ IV (02:00)
[2018-03-12] MEDS: LIDOCAINE/MYLANTA 40 ML BTL PO (03:27)
[2018-03-12 03:32] LABS: TROPONIN-I < 0.010 ng/ml (0.000-0.120)
[2018-03-12] MEDS: PANTOPRAZOLE 40 MG INJ IV ×2 (03:48→04:16)
[2018-03-12] MEDS: morphine 2 MG INJ IV (04:17)
[2018-03-12] MEDS ORDERED: DIPHENHYDRAMINE 50 MG INJ IV (09:00)
[2018-03-12] MEDS ORDERED: METHYLPREDNISOLONE 125 MG INJ IV (09:00)
[2018-03-12] MEDS: TPN 1,000 ML IV (09:11)
[2018-03-12] MEDS: NYSTATIN 30 GM POWDER BTL TOP ×2 (09:18→21:00)
[2018-03-12] MEDS: SOD CHLORIDE 0.9% IV ×3 (09:59→22:07)
[2018-03-12] MEDS: DEXAMETHASONE IV (09:59)
[2018-03-12 11:29] LABS: ADD MAN DIFF? NO
[2018-03-12 11:33] LABS: WHITE BLOOD COUNT 6.7 10^3/ul (4.8-10.8)
[2018-03-12 11:33] LABS: BASOPHILS % 0.6 % (0.0-2.0); EOSINOPHILS # 0.1 10^3/ul (0.0-0.5); HEMATOCRIT 26.9 % (37.0-47.0); HEMOGLOBIN 8.5 g/dl (12.0-16.0); LYMPHOCYTES # 1.1 10^3/ul (0.8-2.9); LYMPHOCYTES % 16.1 % (15.0-51.0); MEAN CORPUSCULAR HEMOGLOBIN 31.4 pg (29.0-33.0); MEAN CORPUSCULAR HGB CONC 31.6 g/dl (32.0-37.0); MEAN CORPUSCULAR VOLUME 99.3 fl (82.0-101.0); MEAN PLATELET VOLUME 9.8 fl (7.4-10.4); MONOCYTE # 0.6 10^3/ul (0.3-0.9); MONOCYTES % 9.2 % (0.0-11.0); NEUTROPHIL # 4.9 10^3/ul (1.6-7.5); NEUTROPHILS % 72.5 % (39.0-77.0); PLATELET COUNT 186 10^3/UL (140-415); RED BLOOD COUNT 2.71 10^6/ul (4.20-5.40); RED CELL DISTRIBUTION WIDTH 17.4 % (11.5-14.5)
[2018-03-12 11:57] LABS: INR 0.99; PARTIAL THROMBOPLASTIN TIME 28.8 Sec (25.0-35.0); PROTIME 13.2 Sec (11.9-14.9)
[2018-03-12 12:00] LABS: ANION GAP 7 (8-16)
[2018-03-12 12:01] LABS: BLOOD UREA NITROGEN 16 mg/dl (7-20); CALCIUM 7.3 mg/dl (8.4-10.2); CARBON DIOXIDE 31 mmol/L (21-31); CHLORIDE 107 mmol/L (97-110); CREATININE 0.56 mg/dl (0.44-1.00); GLUCOSE 105 mg/dl (70-220); MAGNESIUM 1.8 mg/dl (1.7-2.5); PHOSPHORUS 3.2 mg/dl (2.5-4.9); SODIUM 141 mmol/L (135-144)
[2018-03-12 12:14] LABS: TROPONIN-I < 0.010 ng/ml (0.000-0.120)
[2018-03-12] MEDS: DEXAMETHASONE 4 MG/ML 20 MG in SOD CHLORIDE 0.9% 50 ML IVPB ×2 (13:44→17:38)
[2018-03-12] MEDS: DIPHENHYDRAMINE 50 MG INJ IV ×2 (13:49→22:07)
[2018-03-12] MEDS: ACETAMINOPHEN 1000MG/100ML IV 100 ML IVPB (14:06)
[2018-03-12] MEDS: RAMUCIRUMAB IV (14:37)
[2018-03-12] MEDS ORDERED: SOD CHLORIDE 0.9% IV (16:00)
[2018-03-12] MEDS ORDERED: RANITIDINE IV (16:00)
[2018-03-12] MEDS ORDERED: DIPHENHYDRAMINE IV (16:00)
[2018-03-12] MEDS: ONDANSETRON INJ 16 MG in DEXTROSE 5% 50 ML IV (21:06)
[2018-03-12] MEDS: FAMOTIDINE 20 MG INJ IV (22:07)
[2018-03-12] MEDS: PACLITAXEL IV (22:07)
[2018-03-13] MEDS: LORAZEPAM 2 MG INJ IV (00:54)
[2018-03-13] MEDS: ACETAMINOPHEN 1000MG/100ML IV 100 ML IVPB (05:27)
[2018-03-13 06:27] LABS: ANION GAP 6 (8-16); BLOOD UREA NITROGEN 14 mg/dl (7-20); CALCIUM 7.3 mg/dl (8.4-10.2); CARBON DIOXIDE 27 mmol/L (21-31); CHLORIDE 112 mmol/L (97-110); CREATININE 0.45 mg/dl (0.44-1.00); GLUCOSE 185 mg/dl (70-220); PHOSPHORUS 2.7 mg/dl (2.5-4.9); POTASSIUM 3.6 mmol/L (3.5-5.1); SODIUM 141 mmol/L (135-144)
[2018-03-13] MEDS: ACCU-CHEK XX (09:00)
[2018-03-13] MEDS: TPN 1,000 ML IV (09:00)
[2018-03-13] MEDS: NYSTATIN 30 GM POWDER BTL TOP (12:57)
[2018-03-15] MEDS ORDERED: HYDROmorphONE 1 MG/ML SYG IV (16:00)
== END 2018-03-13 17:12 | disposition home health service (06) | DRG 327 ==
LOC: MS2 03-09 05:01 → MS1 03-10 18:15 → E/R 20:40 → TEL 03-01 00:08 → MS2 03-01 12:52
PROC: 0D968ZZ Drainage of Stomach, Via Natural or Artificial Opening Endoscopic (ICD-10-PCS; principal; 2018-03-05 17:00)
PROC: 0W993ZZ Drainage of Right Pleural Cavity, Percutaneous Approach (ICD-10-PCS; 2018-03-05 17:00)
PROC: 0W9G3ZZ Drainage of Peritoneal Cavity, Percutaneous Approach (ICD-10-PCS; 2018-03-05 17:00)
PROC: 30233K1 Transfusion of Nonautologous Frozen Plasma into Peripheral Vein, Percutaneous Approach (ICD-10-PCS; 2018-03-05 17:00)
PROC: 3E03305 Introduction of Other Antineoplastic into Peripheral Vein, Percutaneous Approach (ICD-10-PCS; 2018-03-05 17:00)
DX: C16.9 Malignant neoplasm of stomach, unspecified (principal); J91.0 Malignant pleural effusion; R18.0 Malignant ascites; K31.5 Obstruction of duodenum; N39.0 Urinary tract infection, site not specified; D68.9 Coagulation defect, unspecified; C78.4 Secondary malignant neoplasm of small intestine; K22.2 Esophageal obstruction; D63.8 Anemia in other chronic diseases classified elsewhere; G89.3 Neoplasm related pain (acute) (chronic); R10.9 Unspecified abdominal pain; Z43.4 Encounter for attention to other artificial openings of digestive tract
CPT/HCPCS: 32555; 36415; 36430; 71045; 74176; 74250; 80048; 80053; 81001; 82042; 82150; 82945; 82962; 83615; 83690; 83735; 83986; 84100; 84157; 84484; 85025; 85384; 85610; 85730; 86850; 86900; 86901; 87070; 87086; 87102; 87116; 88104; 88305; 89051; 93005; 93971; 96365; 96375; 97110; 97116; 97161; 97530; 99285-25; J9267

== ENCOUNTER 2018-03-15 10:15 | Inpatient (IN) | payer MEDICAID ==
[2018-03-15] MEDS: SOD CHLORIDE 0.9% 1,000 ML IV ×3 (11:05→13:30)
[2018-03-15] MEDS: ONDANSETRON 4 MG INJ IV ×2 (11:06→19:13)
[2018-03-15] MEDS: HYDROmorphONE 1 MG/ML SYG IV ×3 (11:06→19:02)
[2018-03-15 11:14] LABS: ADD MAN DIFF? NO
[2018-03-15 11:16] LABS: BASOPHILS % 0.1 % (0.0-2.0); HEMATOCRIT 26.4 % (37.0-47.0); HEMOGLOBIN 8.5 g/dl (12.0-16.0); LYMPHOCYTES # 0.7 10^3/ul (0.8-2.9); LYMPHOCYTES % 8.7 % (15.0-51.0); MEAN CORPUSCULAR HEMOGLOBIN 31.5 pg (29.0-33.0); MEAN CORPUSCULAR HGB CONC 32.2 g/dl (32.0-37.0); MEAN CORPUSCULAR VOLUME 97.8 fl (82.0-101.0); MEAN PLATELET VOLUME 10.8 fl (7.4-10.4); MONOCYTE # 0.1 10^3/ul (0.3-0.9); MONOCYTES % 1.6 % (0.0-11.0); NEUTROPHIL # 7.2 10^3/ul (1.6-7.5); NEUTROPHILS % 89.2 % (39.0-77.0); NUCLEATED RED BLOOD CELLS% 0.2 /100WBC (0.0-0.0); PLATELET COUNT 131 10^3/UL (140-415); RED CELL DISTRIBUTION WIDTH 17.1 % (11.5-14.5)
[2018-03-15 11:38] LABS: ALANINE AMINOTRANSFERASE 47 IU/L (13-69); ALBUMIN 1.8 g/dl (3.3-4.9); ALKALINE PHOSPHATASE 136 IU/L (42-121); ANION GAP 9 (8-16); ASPARTATE AMINO TRANSFERASE 59 IU/L (15-46); BILIRUBIN,INDIRECT 0.4 mg/dl (0-1.1); BILIRUBIN,TOTAL 0.4 mg/dl (0.2-1.3); BLOOD UREA NITROGEN 17 mg/dl (7-20); CARBON DIOXIDE 31 mmol/L (21-31); CHLORIDE 105 mmol/L (97-110); CREATININE 0.39 mg/dl (0.44-1.00); GLUCOSE 208 mg/dl (70-220); LIPASE 76 U/L (23-300); POTASSIUM 3.4 mmol/L (3.5-5.1); SODIUM 142 mmol/L (135-144); TOTAL PROTEIN 4.8 g/dl (6.1-8.1)
[2018-03-15] MEDS ORDERED: ONDANSETRON 4 MG INJ IV (13:00)
[2018-03-15] MEDS ORDERED: ACETAMINOPHEN 325 MG TAB PO (13:00)
[2018-03-15] MEDS ORDERED: NACL 0.9% 3 ML SYG IV (13:00)
[2018-03-15] MEDS ORDERED: *CONTINUE SAME TPN IV (13:00)
[2018-03-15] MEDS: POTASSIUM CHLORIDE 100 ML IVPB ×2 (13:30→16:40)
[2018-03-15] MEDS: morphine 2 MG INJ IV (14:53)
[2018-03-15] MEDS: SOD CHLORIDE 0.9% 100 ML (15:42)
[2018-03-15] MEDS: IOHEXOL 300MG/ML 150 ML BTL (15:42)
[2018-03-15] MEDS: TPN 1,000 ML IV (22:34)
[2018-03-16] MEDS: HYDROmorphONE 1 MG/ML SYG IV ×5 (02:37→21:45)
[2018-03-16] MEDS: ONDANSETRON 4 MG INJ IV ×2 (02:38→10:27)
[2018-03-16 06:33] LABS: ANION GAP 5 (8-16); BLOOD UREA NITROGEN 17 mg/dl (7-20); CALCIUM 7.1 mg/dl (8.4-10.2); CARBON DIOXIDE 31 mmol/L (21-31); CHLORIDE 110 mmol/L (97-110); CREATININE 0.44 mg/dl (0.44-1.00); GLUCOSE 137 mg/dl (70-220); MAGNESIUM 2.3 mg/dl (1.7-2.5); PHOSPHORUS 2.7 mg/dl (2.5-4.9); SODIUM 142 mmol/L (135-144); TRIGLYCERIDES 97 mg/dl (0-149)
[2018-03-16] MEDS: METOCLOPRAMIDE 10 MG INJ IV ×2 (06:33→16:25)
[2018-03-16 06:48] LABS: INR 1.02; PROTIME 13.5 Sec (11.9-14.9); PT RATIO 1.1
[2018-03-16 07:38] LABS: PREALBUMIN 9.3 mg/dl (17.6-36.0)
[2018-03-16] MEDS: INSULIN ASPART [NOVOLOG] 3 ML PEN SC ×4 (09:00→21:00)
[2018-03-16] MEDS ORDERED: INSULIN ASPART [NOVOLOG] 3 ML PEN SC ×2 (09:00)
[2018-03-16] MEDS: ENOXAPARIN 40 MG/0.4 ML SYG SC (10:30)
[2018-03-16] MEDS: LIDOCAINE 1% (MDV) 10 ML INJ (11:04)
[2018-03-16 11:55] LABS: FLD RBC 1000 /uL; FLD WBC 91 /cmm
[2018-03-16 12:39] LABS: FLD TYPE ASCITES
[2018-03-16 12:39] LABS: FLD CLARITY CLEAR; FLD COLOR YELLOW
[2018-03-16] MEDS: TPN 1,000 ML IV ×2 (13:40→22:13)
[2018-03-16] MEDS ORDERED: FAMOTIDINE 20 MG INJ IV (14:00)
[2018-03-16 14:48] LABS: FLUID TOTAL PROTEIN < 2.0 g/dl
[2018-03-16] MEDS: PANTOPRAZOLE 40 MG INJ IV (16:25)
[2018-03-16] MEDS ORDERED: ONDANSETRON 4 MG INJ IV (19:00)
[2018-03-16] MEDS: TRIMETHOBENZAMIDE 100 MG/ML VIAL IM (21:44)
[2018-03-17] MEDS: INSULIN ASPART [NOVOLOG] 3 ML PEN SC ×5 (01:00→21:00)
[2018-03-17] MEDS: PANTOPRAZOLE 40 MG INJ IV (05:09)
[2018-03-17] MEDS: HYDROmorphONE 1 MG/ML SYG IV ×5 (05:10→22:23)
[2018-03-17 05:50] LABS: ABNORMAL IP MESSAGE 1; HEMATOCRIT 25.2 % (37.0-47.0); HEMOGLOBIN 7.9 g/dl (12.0-16.0); MEAN CORPUSCULAR HEMOGLOBIN 31.6 pg (29.0-33.0); MEAN CORPUSCULAR HGB CONC 31.3 g/dl (32.0-37.0); MEAN CORPUSCULAR VOLUME 100.8 fl (82.0-101.0); MEAN PLATELET VOLUME 11.6 fl (7.4-10.4); PLATELET COUNT 130 10^3/UL (140-415); RED CELL DISTRIBUTION WIDTH 16.8 % (11.5-14.5)
[2018-03-17 05:50] LABS: WHITE BLOOD COUNT 1.7 10^3/ul (4.8-10.8)
[2018-03-17 06:41] LABS: PHOSPHORUS 2.3 mg/dl (2.5-4.9)
[2018-03-17 06:41] LABS: MAGNESIUM 2.3 mg/dl (1.7-2.5)
[2018-03-17 07:09] LABS: POSITIVE DIFF @See below
[2018-03-17 07:10] LABS: ADD MAN DIFF? YES; ANION GAP 5 (8-16); BLOOD UREA NITROGEN 19 mg/dl (7-20); CALCIUM 7.2 mg/dl (8.4-10.2); CARBON DIOXIDE 30 mmol/L (21-31); CHLORIDE 112 mmol/L (97-110); GLUCOSE 97 mg/dl (70-220); POTASSIUM 4.5 mmol/L (3.5-5.1); SODIUM 142 mmol/L (135-144)
[2018-03-17] MEDS: ONDANSETRON INJ 8 MG in SOD CHLORIDE 0.9% 50 ML IV ×2 (09:51→18:09)
[2018-03-17] MEDS: ENOXAPARIN 40 MG/0.4 ML SYG SC (09:58)
[2018-03-17 10:20] LABS: ANISOCYTOSIS 1+ (0-0); BAND NEUTROPHILS #M 0.3 10^3/ul (0.0-0.6); BAND NEUTROPHILS % (M) 20 % (0-4); BASOPHILS % (M) 1 % (0-2); EOSINOPHILS % (M) 2 % (0-7); HYPOCHROMASIA 2+ (0-0); LYMPHOCYTES #M 0.4 10^3/ul (0.8-2.9); LYMPHOCYTES % (M) 29 % (15-51); MICROCYTOSIS 1+ (0-0); PLATELET ESTIMATE NORMAL; SEG NEUT #M 0.8 10^3/ul (1.6-7.5); SEGMENTED NEUTROPHILS (M) % 48 % (39-77); SMUDGE%M 1 % (0-0)
[2018-03-17] MEDS: METOCLOPRAMIDE 10 MG INJ IV (14:24)
[2018-03-17] MEDS: TPN 1,000 ML IV ×2 (14:26→23:30)
[2018-03-17] MEDS: FILGRASTIM 300 MCG INJ SC (18:10)
[2018-03-18] MEDS: TPN 1,000 ML IV ×2 (02:00→13:00)
[2018-03-18] MEDS: HYDROmorphONE 1 MG/ML SYG IV ×5 (04:12→19:43)
[2018-03-18] MEDS: PANTOPRAZOLE 40 MG INJ IV (05:47)
[2018-03-18 06:29] LABS: WHITE BLOOD COUNT 1.8 10^3/ul (4.8-10.8)
[2018-03-18 06:29] LABS: ABNORMAL IP MESSAGE 1; HEMATOCRIT 23.8 % (37.0-47.0); HEMOGLOBIN 7.4 g/dl (12.0-16.0); MEAN CORPUSCULAR HGB CONC 31.1 g/dl (32.0-37.0); MEAN CORPUSCULAR VOLUME 99.6 fl (82.0-101.0); MEAN PLATELET VOLUME 11.9 fl (7.4-10.4); PLATELET COUNT 159 10^3/UL (140-415); RED BLOOD COUNT 2.39 10^6/ul (4.20-5.40); RED CELL DISTRIBUTION WIDTH 16.6 % (11.5-14.5)
[2018-03-18 06:43] LABS: ADD MAN DIFF? YES; POSITIVE DIFF @See below
[2018-03-18 07:02] LABS: ALANINE AMINOTRANSFERASE 42 IU/L (13-69); ALBUMIN 1.7 g/dl (3.3-4.9); ALBUMIN/GLOBULIN RATIO 0.62; ALKALINE PHOSPHATASE 157 IU/L (42-121); ANION GAP 7 (8-16); ASPARTATE AMINO TRANSFERASE 32 IU/L (15-46); BILIRUBIN,INDIRECT 0.3 mg/dl (0-1.1); BILIRUBIN,TOTAL 0.3 mg/dl (0.2-1.3); BLOOD UREA NITROGEN 20 mg/dl (7-20); CALCIUM 7.1 mg/dl (8.4-10.2); CARBON DIOXIDE 26 mmol/L (21-31); CHLORIDE 112 mmol/L (97-110); CREATININE 0.55 mg/dl (0.44-1.00); GLUCOSE 114 mg/dl (70-220); MAGNESIUM 2.2 mg/dl (1.7-2.5); POTASSIUM 4.3 mmol/L (3.5-5.1); SODIUM 141 mmol/L (135-144); TOTAL PROTEIN 4.4 g/dl (6.1-8.1)
[2018-03-18] MEDS: INSULIN ASPART [NOVOLOG] 3 ML PEN SC ×2 (08:46→22:36)
[2018-03-18] MEDS: ENOXAPARIN 40 MG/0.4 ML SYG SC (09:06)
[2018-03-18 09:31] LABS: ANISOCYTOSIS 1+ (0-0); BAND NEUTROPHILS #M 0.4 10^3/ul (0.0-0.6); BAND NEUTROPHILS % (M) 26 % (0-4); BASOPHILS % (M) 2 % (0-2); BURR CELLS 1+ (0-0); EOSINOPHILS % (M) 3 % (0-7); GIANT THROMBO% (M) 5 % (0-0); HYPOCHROMASIA 1+ (0-0); LYMPHOCYTES #M 0.4 10^3/ul (0.8-2.9); LYMPHOCYTES % (M) 25 % (15-51); METAMYELOCYTES %M 1 % (0-0); MONOCYTES % (M) 1 % (0-11); MYELOCYTES #M 0.1 10^3/ul (0.0-0.0); MYELOCYTES % (M) 6 % (0-0); PLATELET ESTIMATE NORMAL; POIKILOCYTOSIS 1+ (0-0); REACTIVE LYMPHOCYTES% (M) 2 % (0-0); SEG NEUT #M 0.6 10^3/ul (1.6-7.5); SEGMENTED NEUTROPHILS (M) % 34 % (39-77); SMUDGE%M 25 % (0-0); TEAR DROP CELLS 1+ (0-0)
[2018-03-18] MEDS: SOD CHLORIDE 0.9% 250 ML IV* (12:28)
[2018-03-18] MEDS: CEFAZOLIN 1 GM/50 ML (PMX) 50 ML IVPB (16:30)
[2018-03-18] MEDS: CEFAZOLIN 2 GM/50 ML (PMX) 50 ML IVPB (16:53)
[2018-03-18] MEDS: PROPOFOL 40 ML (17:13)
[2018-03-18] MEDS ORDERED: MEPERIDINE 25 MG INJ (17:32)
[2018-03-18] MEDS: FLUCONAZOLE 100 MG/50 ML (PMX) 50 ML IVPB (18:00)
[2018-03-18] MEDS: MEPERIDINE 25 MG INJ IV (18:16)
[2018-03-18] MEDS: FILGRASTIM 300 MCG INJ SC (19:06)
[2018-03-18 20:17] LABS: ABNORMAL IP MESSAGE 1; HEMATOCRIT 26.1 % (37.0-47.0); HEMOGLOBIN 8.7 g/dl (12.0-16.0); MEAN CORPUSCULAR HEMOGLOBIN 32.6 pg (29.0-33.0); MEAN CORPUSCULAR HGB CONC 33.3 g/dl (32.0-37.0); MEAN CORPUSCULAR VOLUME 97.8 fl (82.0-101.0); MEAN PLATELET VOLUME 10.9 fl (7.4-10.4); NUCLEATED RED BLOOD CELLS% 3.6 /100WBC (0.0-0.0); PLATELET COUNT 192 10^3/UL (140-415); RED BLOOD COUNT 2.67 10^6/ul (4.20-5.40); RED CELL DISTRIBUTION WIDTH 16.3 % (11.5-14.5)
[2018-03-18 20:17] LABS: WHITE BLOOD COUNT 1.1 10^3/ul (4.8-10.8)
[2018-03-18 20:18] LABS: POSITIVE DIFF @See below
[2018-03-18 20:19] LABS: ADD MAN DIFF? YES
[2018-03-18 20:37] LABS: LACTIC ACID 1.9 mmol/L (0.5-2.0)
[2018-03-18 20:42] LABS: ANION GAP 9 (8-16); BLOOD UREA NITROGEN 18 mg/dl (7-20); CALCIUM 7.4 mg/dl (8.4-10.2); CARBON DIOXIDE 24 mmol/L (21-31); CHLORIDE 112 mmol/L (97-110); CREATININE 0.55 mg/dl (0.44-1.00); GLUCOSE 88 mg/dl (70-220); POTASSIUM 4.3 mmol/L (3.5-5.1); SODIUM 141 mmol/L (135-144)
[2018-03-18 20:54] LABS: ANISOCYTOSIS 1+ (0-0); BAND NEUTROPHILS #M 0.1 10^3/ul (0.0-0.6); BAND NEUTROPHILS % (M) 11 % (0-4); BASOPHILS % (M) 2 % (0-2); EOSINOPHILS % (M) 1 % (0-7); ERYTHROBLAST% (NRBC) (M) 7 % (0-0); GIANT THROMBO% (M) 6 % (0-0); LYMPHOCYTES #M 0.4 10^3/ul (0.8-2.9); LYMPHOCYTES % (M) 39 % (15-51); MICROCYTOSIS 1+ (0-0); MONOCYTE #M 0.1 10^3/ul (0.3-0.9); MONOCYTES % (M) 13 % (0-11); MYELOCYTES % (M) 1 % (0-0); PLATELET MORPHOLOGY COMMENT @See below; POLYCHROMASIA 2+ (0-0); PROMYELOCYTES % (M) 1 % (0-0); REACTIVE LYMPHOCYTES% (M) 5 % (0-0); SEG NEUT #M 0.3 10^3/ul (1.6-7.5); SEGMENTED NEUTROPHILS (M) % 27 % (39-77); SMUDGE%M 17 % (0-0)
[2018-03-18] MEDS: SOD CHLORIDE 0.9% 1,000 ML IV ×3 (20:55→23:32)
[2018-03-18] MEDS: SOD CHLORIDE 0.9% 500 ML IV (22:42)
[2018-03-18] MEDS: DEXTROSE 50% 50 ML SYRINGE IV (22:45)
[2018-03-18] MEDS: ACETAMINOPHEN 650 MG SUPP PR (22:46)
[2018-03-18] MEDS ORDERED: VANCOMYCIN IV PER PHARMACY XX (23:00)
[2018-03-18] MEDS: VANCOMYCIN 1.25 GM in SOD CHLORIDE 0.9% 250 ML IVPB (23:31)
[2018-03-18] MEDS: ONDANSETRON INJ 8 MG in SOD CHLORIDE 0.9% 50 ML IV (23:32)
[2018-03-19] MEDS: ALTEPLASE (CATHFLO) 2 MG INJ CATHETER (00:55)
[2018-03-19] MEDS: PIPER-TAZO 3.375 GM IV (PMX) 100 ML IVPB ×5 (00:56→18:14)
[2018-03-19] MEDS: LIDOCAINE 1% (MPF) 5 ML VIAL SC (02:00)
[2018-03-19] MEDS ORDERED: NORepinephrine 8MG/250 ML (PMX 250 ML (02:05)
[2018-03-19] MEDS: DEXTROSE 5%-0.45% NACL 1,000 ML IV ×3 (02:11→21:30)
[2018-03-19] MEDS: NORepinephrine 8MG/250 ML (PMX 250 ML IV (02:16)
[2018-03-19] MEDS ORDERED: DEXAMETHASONE 4 MG/ML 20 MG in DEXTROSE 5% 50 ML IV ×2 (03:00→15:00)
[2018-03-19 05:47] LABS: WHITE BLOOD COUNT 0.9 10^3/ul (4.8-10.8)
[2018-03-19 05:47] LABS: ABNORMAL IP MESSAGE 1; HEMATOCRIT 23.5 % (37.0-47.0); HEMOGLOBIN 7.5 g/dl (12.0-16.0); MEAN CORPUSCULAR HEMOGLOBIN 30.9 pg (29.0-33.0); MEAN CORPUSCULAR HGB CONC 31.9 g/dl (32.0-37.0); MEAN CORPUSCULAR VOLUME 96.7 fl (82.0-101.0); MEAN PLATELET VOLUME 11.1 fl (7.4-10.4); NUCLEATED RED BLOOD CELLS% 4.6 /100WBC (0.0-0.0); PLATELET COUNT 191 10^3/UL (140-415); RED BLOOD COUNT 2.43 10^6/ul (4.20-5.40); RED CELL DISTRIBUTION WIDTH 16.5 % (11.5-14.5)
[2018-03-19 05:58] LABS: ADD MAN DIFF? YES; POSITIVE DIFF @See below
[2018-03-19] MEDS: PANTOPRAZOLE 40 MG INJ IV (06:02)
[2018-03-19 06:15] LABS: ANION GAP 6 (8-16); BLOOD UREA NITROGEN 14 mg/dl (7-20); CALCIUM 6.6 mg/dl (8.4-10.2); CARBON DIOXIDE 23 mmol/L (21-31); CHLORIDE 117 mmol/L (97-110); CREATININE 0.51 mg/dl (0.44-1.00); GLUCOSE 94 mg/dl (70-220); POTASSIUM 3.8 mmol/L (3.5-5.1); SODIUM 142 mmol/L (135-144)
[2018-03-19 06:25] LABS: MAGNESIUM 1.8 mg/dl (1.7-2.5)
[2018-03-19 06:25] LABS: PHOSPHORUS 2.3 mg/dl (2.5-4.9)
[2018-03-19 06:28] LABS: LACTIC ACID 1.5 mmol/L (0.5-2.0)
[2018-03-19 07:15] LABS: ANISOCYTOSIS 1+ (0-0); BAND NEUTROPHILS #M 0.1 10^3/ul (0.0-0.6); BAND NEUTROPHILS % (M) 18 % (0-4); BASOPHILS % (M) 3 % (0-2); ERYTHROBLAST% (NRBC) (M) 13 % (0-0); GIANT THROMBO% (M) 4 % (0-0); LYMPHOCYTES #M 0.3 10^3/ul (0.8-2.9); LYMPHOCYTES % (M) 34 % (15-51); MICROCYTOSIS 1+ (0-0); MONOCYTE #M 0.1 10^3/ul (0.3-0.9); MONOCYTES % (M) 21 % (0-11); MYELOCYTES % (M) 1 % (0-0); PLATELET ESTIMATE NORMAL; POLYCHROMASIA 1+ (0-0); PROMYELOCYTES % (M) 1 % (0-0); REACTIVE LYMPHOCYTES% (M) 1 % (0-0); SEG NEUT #M 0.2 10^3/ul (1.6-7.5); SEGMENTED NEUTROPHILS (M) % 21 % (39-77); SMUDGE%M 16 % (0-0)
[2018-03-19] MEDS: HYDROmorphONE 1 MG/ML SYG IV (07:51)
[2018-03-19] MEDS: INSULIN ASPART [NOVOLOG] 3 ML PEN SC ×2 (09:00→20:42)
[2018-03-19] MEDS: VANCOMYCIN 1 GM 250 ML IVPB ×2 (09:09→16:37)
[2018-03-19] MEDS: ENOXAPARIN 40 MG/0.4 ML SYG SC (09:29)
[2018-03-19] MEDS ORDERED: CALCIUM GLUCONATE 10% 2 GM in DEXTROSE 5% 100 ML IVPB (10:00)
[2018-03-19] MEDS: HYDROmorphONE 0.5 MG/0.5 ML SYG IV ×4 (10:34→20:26)
[2018-03-19] MEDS: CALCIUM GLUCONATE 10% 1 GM in DEXTROSE 5% 100 ML IVPB (11:21)
[2018-03-19] MEDS ORDERED: DIPHENHYDRAMINE 50 MG INJ IV (14:00)
[2018-03-19] MEDS ORDERED: RANITIDINE 50 MG in SOD CHLORIDE 0.9% 50 ML IVPB (14:00)
[2018-03-19 14:29] LABS: ADD UMIC NO; UR ASCORBIC ACID NEGATIVE (NEGATIVE); UR BACTERIA FEW /HPF (NONE SEEN); UR BILIRUBIN (Dip) NEGATIVE (NEGATIVE); UR BLOOD (Dip) NEGATIVE (NEGATIVE); UR CLARITY SLIGHTLY CLOUDY (CLEAR); UR COLOR AMBER (YELLOW); UR GLUCOSE (Dip) NEGATIVE (NEGATIVE); UR KETONES (Dip) NEGATIVE (NEGATIVE); UR LEUKOCYTE ESTERASE (Dip) NEGATIVE Leu/ul (NEGATIVE); UR NITRITE (Dip) NEGATIVE (NEGATIVE); UR RBC 2 /HPF (0-5); UR SPECIFIC GRAVITY (Dip) 1.029 (1.003-1.030); UR SQUAMOUS EPITHELIAL CELL FEW /HPF (FEW); UR TOTAL PROTEIN (Dip) NEGATIVE (NEGATIVE); UR UROBILINOGEN (Dip) NEGATIVE (NEGATIVE); UR WBC 6 /HPF (0-5)
[2018-03-19] MEDS ORDERED: PACLITAXEL IV (15:00)
[2018-03-19] MEDS ORDERED: SOD CHLORIDE 0.9% IV (15:00)
[2018-03-19 15:51] LABS: HEMATOCRIT 21.6 % (37.0-47.0); HEMOGLOBIN 7.1 g/dl (12.0-16.0)
[2018-03-19] MEDS: SOD CHLORIDE 0.9% 100 ML (16:25)
[2018-03-19] MEDS ORDERED: GLUCOSE GEL 15 GRAM TUBE BUCCAL (17:00)
[2018-03-19] MEDS ORDERED: DEXTROSE 50% 50 ML SYRINGE IV ×2 (17:00)
[2018-03-19] MEDS ORDERED: GLUCOSE GEL 15 GRAM TUBE PO ×2 (17:00)
[2018-03-19] MEDS ORDERED: GLUCAGON 1 MG INJ IM (17:00)
[2018-03-19] MEDS: FLUCONAZOLE 100 MG/50 ML (PMX) 50 ML IVPB (17:03)
[2018-03-19] MEDS: FILGRASTIM 300 MCG INJ SC (18:26)
[2018-03-19] MEDS: POTASSIUM PHOSPHATE 20 MEQ in SOD CHLORIDE 0.9% 250 ML IVPB (18:58)
[2018-03-19] MEDS: HEPARIN 5,000 UNIT/0.5 ML VIAL SC (20:41)
[2018-03-19] MEDS ORDERED: COLCHICINE 0.6 MG TAB PO (21:00)
[2018-03-19] MEDS ORDERED: IBUPROFEN 400 MG TAB PO (22:00)
[2018-03-20] MEDS ORDERED: ZOLPIDEM 5 MG TAB PO
[2018-03-20] MEDS: HYDROmorphONE 0.5 MG/0.5 ML SYG IV ×6 (00:22→20:48)
[2018-03-20] MEDS: PIPER-TAZO 3.375 GM IV (PMX) 100 ML IVPB ×4 (00:22→17:07)
[2018-03-20] MEDS: VANCOMYCIN 1 GM 250 ML IVPB ×2 (00:33→12:46)
[2018-03-20 01:10] LABS: VANCOMYCIN,TROUGH 19.9 ug/ml (10.0-20.0)
[2018-03-20 02:33] LABS: IMMEDIATE SPIN CROSSMATCH 1 2
[2018-03-20] MEDS: PANTOPRAZOLE 40 MG INJ IV (05:30)
[2018-03-20 06:55] LABS: WHITE BLOOD COUNT 3.6 10^3/ul (4.8-10.8)
[2018-03-20 06:55] LABS: ABNORMAL IP MESSAGE 1; HEMATOCRIT 35.4 % (37.0-47.0); HEMOGLOBIN 11.9 g/dl (12.0-16.0); MEAN CORPUSCULAR HEMOGLOBIN 31.1 pg (29.0-33.0); MEAN CORPUSCULAR HGB CONC 33.6 g/dl (32.0-37.0); MEAN CORPUSCULAR VOLUME 92.4 fl (82.0-101.0); MEAN PLATELET VOLUME 11.1 fl (7.4-10.4); PLATELET COUNT 209 10^3/UL (140-415); RED BLOOD COUNT 3.83 10^6/ul (4.20-5.40); RED CELL DISTRIBUTION WIDTH 15.5 % (11.5-14.5)
[2018-03-20 07:00] LABS: ADD MAN DIFF? YES; POSITIVE DIFF @See below
[2018-03-20 07:16] LABS: ALANINE AMINOTRANSFERASE 38 IU/L (13-69); ALBUMIN 1.5 g/dl (3.3-4.9); ALKALINE PHOSPHATASE 149 IU/L (42-121); ANION GAP 8 (8-16); ASPARTATE AMINO TRANSFERASE 26 IU/L (15-46); BILIRUBIN,INDIRECT 0.4 mg/dl (0-1.1); BILIRUBIN,TOTAL 0.4 mg/dl (0.2-1.3); BLOOD UREA NITROGEN 9 mg/dl (7-20); CARBON DIOXIDE 20 mmol/L (21-31); CHLORIDE 115 mmol/L (97-110); CREATININE 0.47 mg/dl (0.44-1.00); GLUCOSE 77 mg/dl (70-220); SODIUM 140 mmol/L (135-144)
[2018-03-20 07:22] LABS: MAGNESIUM 1.8 mg/dl (1.7-2.5); POTASSIUM 2.8 mmol/L (3.5-5.1)
[2018-03-20 07:22] LABS: PHOSPHORUS 2.8 mg/dl (2.5-4.9)
[2018-03-20 08:01] LABS: ANISOCYTOSIS 1+ (0-0); BAND NEUTROPHILS #M 0.8 10^3/ul (0.0-0.6); BAND NEUTROPHILS % (M) 24 % (0-4); BASOPHILS % (M) 1 % (0-2); EOSINOPHILS % (M) 2 % (0-7); ERYTHROBLAST% (NRBC) (M) 13 % (0-0); GIANT THROMBO% (M) 2 % (0-0); LYMPHOCYTES #M 0.7 10^3/ul (0.8-2.9); LYMPHOCYTES % (M) 22 % (15-51); MICROCYTOSIS 1+ (0-0); MONOCYTE #M 0.9 10^3/ul (0.3-0.9); MONOCYTES % (M) 26 % (0-11); PLATELET ESTIMATE NORMAL; POIKILOCYTOSIS 3+ (0-0); POLYCHROMASIA 1+ (0-0); PROMYELOCYTES % (M) 1 % (0-0); REACTIVE LYMPHOCYTES #M 0.2 10^3/ul (0.0-0.0); REACTIVE LYMPHOCYTES% (M) 7 % (0-0); SEG NEUT #M 0.6 10^3/ul (1.6-7.5); SEGMENTED NEUTROPHILS (M) % 17 % (39-77); SMUDGE%M 10 % (0-0)
[2018-03-20] MEDS: POTASSIUM CHLORIDE 50 ML IVPB ×3 (08:03→12:45)
[2018-03-20] MEDS: INSULIN ASPART [NOVOLOG] 3 ML PEN SC ×2 (09:00→20:41)
[2018-03-20] MEDS: HEPARIN 5,000 UNIT/0.5 ML VIAL SC ×2 (09:00→20:44)
[2018-03-20] MEDS: TPN 1,000 ML IV ×3 (09:11→09:12)
[2018-03-20] MEDS: FILGRASTIM 300 MCG INJ SC (17:07)
[2018-03-20] MEDS: FLUCONAZOLE 100 MG/50 ML (PMX) 50 ML IVPB (18:40)
[2018-03-21] MEDS: HYDROmorphONE 0.5 MG/0.5 ML SYG IV ×2 (00:16→05:26)
[2018-03-21] MEDS: TPN 1,000 ML IV ×2 (00:16→15:30)
[2018-03-21] MEDS: PIPER-TAZO 3.375 GM IV (PMX) 100 ML IVPB ×5 (00:26→23:54)
[2018-03-21] MEDS: VANCOMYCIN 1.25 GM in SOD CHLORIDE 0.9% 250 ML IVPB ×2 (01:05→13:21)
[2018-03-21] MEDS: PANTOPRAZOLE 40 MG INJ IV (05:26)
[2018-03-21 06:20] LABS: ANION GAP 4 (8-16); BLOOD UREA NITROGEN 6 mg/dl (7-20); CARBON DIOXIDE 24 mmol/L (21-31); CHLORIDE 115 mmol/L (97-110); CREATININE 0.46 mg/dl (0.44-1.00); GLUCOSE 104 mg/dl (70-220); MAGNESIUM 1.9 mg/dl (1.7-2.5); PHOSPHORUS 1.9 mg/dl (2.5-4.9); POTASSIUM 3.2 mmol/L (3.5-5.1); SODIUM 140 mmol/L (135-144)
[2018-03-21] MEDS: INSULIN ASPART [NOVOLOG] 3 ML PEN SC ×2 (08:25→21:00)
[2018-03-21] MEDS: HEPARIN 5,000 UNIT/0.5 ML VIAL SC ×2 (08:30→21:12)
[2018-03-21] MEDS: HYDROmorphONE 1 MG/ML SYG IV ×3 (11:12→22:55)
[2018-03-21] MEDS: CALCIUM GLUCONATE 10% 1 GM in DEXTROSE 5% 100 ML IVPB (11:59)
[2018-03-21 12:00] LABS: WHITE BLOOD COUNT 16.3 10^3/ul (4.8-10.8)
[2018-03-21 12:00] LABS: ABNORMAL IP MESSAGE 1; HEMATOCRIT 36.2 % (37.0-47.0); HEMOGLOBIN 11.7 g/dl (12.0-16.0); MEAN CORPUSCULAR HEMOGLOBIN 30.2 pg (29.0-33.0); MEAN CORPUSCULAR HGB CONC 32.3 g/dl (32.0-37.0); MEAN CORPUSCULAR VOLUME 93.5 fl (82.0-101.0); MEAN PLATELET VOLUME 11.7 fl (7.4-10.4); NUCLEATED RED BLOOD CELLS% 5.2 /100WBC (0.0-0.0); PLATELET COUNT 190 10^3/UL (140-415); POSITIVE DIFF @See below; RED BLOOD COUNT 3.87 10^6/ul (4.20-5.40); RED CELL DISTRIBUTION WIDTH 16.2 % (11.5-14.5)
[2018-03-21 12:01] LABS: ADD MAN DIFF? YES
[2018-03-21 13:08] LABS: ANISOCYTOSIS 1+ (0-0); BAND NEUTROPHILS #M 4.8 10^3/ul (0.0-0.6); BAND NEUTROPHILS % (M) 30 % (0-4); BASOPHIL #M 0.3 10^3/ul (0.0-0.0); BASOPHILS % (M) 2 % (0-2); EOSINOPHILS % (M) 2 % (0-7); ERYTHROBLAST% (NRBC) (M) 8 % (0-0); GIANT THROMBO% (M) 1 % (0-0); LYMPHOCYTES #M 0.6 10^3/ul (0.8-2.9); LYMPHOCYTES % (M) 4 % (15-51); METAMYELOCYTES #M 0.1 10^3/ul (0.0-0.0); METAMYELOCYTES %M 1 % (0-0); MONOCYTE #M 2.6 10^3/ul (0.3-0.9); MONOCYTES % (M) 16 % (0-11); MYELOCYTES #M 0.1 10^3/ul (0.0-0.0); MYELOCYTES % (M) 1 % (0-0); PLATELET ESTIMATE NORMAL; POIKILOCYTOSIS 3+ (0-0); POLYCHROMASIA 1+ (0-0); PROMYELOCYTES #M 0.1 10^3/ul (0-0); PROMYELOCYTES % (M) 1 % (0-0); REACTIVE LYMPHOCYTES #M 0.1 10^3/ul (0.0-0.0); REACTIVE LYMPHOCYTES% (M) 1 % (0-0); SEGMENTED NEUTROPHILS (M) % 44 % (39-77); SMUDGE%M 23 % (0-0)
[2018-03-21] MEDS: POTASSIUM PHOSPHATE 60 MEQ in SOD CHLORIDE 0.9% 500 ML IVPB (13:21)
[2018-03-21] MEDS: ACCU-CHEK XX ×3 (14:22→21:12)
[2018-03-21] MEDS: FAT EMULSION 20% 250 ML IV (16:36)
[2018-03-21] MEDS: FLUCONAZOLE 100 MG/50 ML (PMX) 50 ML IVPB (19:33)
[2018-03-22] MEDS: ACCU-CHEK XX ×6 (01:00→21:18)
[2018-03-22] MEDS: VANCOMYCIN 1.25 GM in SOD CHLORIDE 0.9% 250 ML IVPB ×2 (01:24→13:21)
[2018-03-22] MEDS: PIPER-TAZO 3.375 GM IV (PMX) 100 ML IVPB ×3 (05:32→17:50)
[2018-03-22] MEDS: PANTOPRAZOLE 40 MG INJ IV (05:32)
[2018-03-22 06:10] LABS: ABNORMAL IP MESSAGE 1; HEMATOCRIT 32.9 % (37.0-47.0); HEMOGLOBIN 10.8 g/dl (12.0-16.0); MEAN CORPUSCULAR HEMOGLOBIN 30.3 pg (29.0-33.0); MEAN CORPUSCULAR HGB CONC 32.8 g/dl (32.0-37.0); MEAN CORPUSCULAR VOLUME 92.4 fl (82.0-101.0); MEAN PLATELET VOLUME 11.8 fl (7.4-10.4); NUCLEATED RED BLOOD CELLS% 1.1 /100WBC (0.0-0.0); PLATELET COUNT 162 10^3/UL (140-415); RED BLOOD COUNT 3.56 10^6/ul (4.20-5.40); RED CELL DISTRIBUTION WIDTH 16.3 % (11.5-14.5)
[2018-03-22 06:10] LABS: WHITE BLOOD COUNT 31.8 10^3/ul (4.8-10.8)
[2018-03-22 06:37] LABS: ANION GAP 8 (8-16); BLOOD UREA NITROGEN 10 mg/dl (7-20); CALCIUM 7.3 mg/dl (8.4-10.2); CARBON DIOXIDE 23 mmol/L (21-31); CHLORIDE 111 mmol/L (97-110); CREATININE 0.43 mg/dl (0.44-1.00); GLUCOSE 87 mg/dl (70-220); POTASSIUM 3.5 mmol/L (3.5-5.1); SODIUM 138 mmol/L (135-144)
[2018-03-22] MEDS: HYDROmorphONE 1 MG/ML SYG IV ×3 (06:37→22:44)
[2018-03-22 06:38] LABS: MAGNESIUM 1.8 mg/dl (1.7-2.5)
[2018-03-22 06:38] LABS: PHOSPHORUS 3.2 mg/dl (2.5-4.9)
[2018-03-22 06:53] LABS: ADD MAN DIFF? YES; POSITIVE DIFF @See below
[2018-03-22] MEDS: HEPARIN 5,000 UNIT/0.5 ML VIAL SC ×2 (08:58→21:21)
[2018-03-22] MEDS: INSULIN ASPART [NOVOLOG] 3 ML PEN SC ×2 (09:00→21:00)
[2018-03-22] MEDS: TPN 1,000 ML IV (09:04)
[2018-03-22 10:09] LABS: ANISOCYTOSIS 1+ (0-0); BAND NEUTROPHILS #M 8.2 10^3/ul (0.0-0.6); BAND NEUTROPHILS % (M) 26 % (0-4); EOSINOPHILS % (M) 1 % (0-7); LYMPHOCYTES #M 0.6 10^3/ul (0.8-2.9); LYMPHOCYTES % (M) 2 % (15-51); METAMYELOCYTES #M 0.6 10^3/ul (0.0-0.0); METAMYELOCYTES %M 2 % (0-0); MONOCYTE #M 0.9 10^3/ul (0.3-0.9); MONOCYTES % (M) 3 % (0-11); MYELOCYTES #M 0.3 10^3/ul (0.0-0.0); MYELOCYTES % (M) 1 % (0-0); PLATELET ESTIMATE NORMAL; POIKILOCYTOSIS 1+ (0-0); POLYCHROMASIA 2+ (0-0); REACTIVE LYMPHOCYTES #M 0.3 10^3/ul (0.0-0.0); REACTIVE LYMPHOCYTES% (M) 1 % (0-0); SEGMENTED NEUTROPHILS (M) % 64 % (39-77); SMUDGE%M 4 % (0-0)
[2018-03-22] MEDS: POTASSIUM CHLORIDE 100 ML IVPB (12:45)
[2018-03-22] MEDS: CALCIUM GLUCONATE 10% 1 GM in DEXTROSE 5% 100 ML IVPB (12:47)
[2018-03-22] MEDS ORDERED: ATROPINE 1 MG/10 ML SYRINGE (13:27)
[2018-03-22] MEDS: FAT EMULSION 20% 250 ML IV (15:59)
[2018-03-22] MEDS: FLUCONAZOLE 100 MG/50 ML (PMX) 50 ML IVPB (17:50)
[2018-03-23] MEDS: PIPER-TAZO 3.375 GM IV (PMX) 100 ML IVPB ×4 (00:24→18:04)
[2018-03-23] MEDS: VANCOMYCIN 1.25 GM in SOD CHLORIDE 0.9% 250 ML IVPB (01:00)
[2018-03-23 01:08] LABS: VANCOMYCIN,TROUGH 21.8 ug/ml (10.0-20.0)
[2018-03-23] MEDS: TPN 1,000 ML IV ×2 (01:16→18:03)
[2018-03-23] MEDS: ACCU-CHEK XX ×6 (01:18→21:38)
[2018-03-23 05:39] LABS: WHITE BLOOD COUNT 28.6 10^3/ul (4.8-10.8)
[2018-03-23 05:39] LABS: ABNORMAL IP MESSAGE 1; HEMOGLOBIN 10.4 g/dl (12.0-16.0); MEAN CORPUSCULAR HEMOGLOBIN 30.1 pg (29.0-33.0); MEAN CORPUSCULAR HGB CONC 32.5 g/dl (32.0-37.0); MEAN CORPUSCULAR VOLUME 92.5 fl (82.0-101.0); MEAN PLATELET VOLUME 11.6 fl (7.4-10.4); NUCLEATED RED BLOOD CELLS% 0.8 /100WBC (0.0-0.0); PLATELET COUNT 167 10^3/UL (140-415); RED BLOOD COUNT 3.46 10^6/ul (4.20-5.40); RED CELL DISTRIBUTION WIDTH 16.2 % (11.5-14.5)
[2018-03-23 05:42] LABS: POSITIVE DIFF @See below
[2018-03-23 05:43] LABS: ADD MAN DIFF? YES
[2018-03-23] MEDS: HYDROmorphONE 1 MG/ML SYG IV ×2 (05:54→22:04)
[2018-03-23] MEDS: PANTOPRAZOLE 40 MG INJ IV (05:54)
[2018-03-23 06:12] LABS: PHOSPHORUS 3.3 mg/dl (2.5-4.9)
[2018-03-23 06:12] LABS: MAGNESIUM 1.9 mg/dl (1.7-2.5)
[2018-03-23 06:13] LABS: ANION GAP 3 (8-16); BLOOD UREA NITROGEN 9 mg/dl (7-20); CALCIUM 7.5 mg/dl (8.4-10.2); CARBON DIOXIDE 26 mmol/L (21-31); CHLORIDE 111 mmol/L (97-110); CREATININE 0.44 mg/dl (0.44-1.00); GLUCOSE 92 mg/dl (70-220); POTASSIUM 4.2 mmol/L (3.5-5.1); SODIUM 136 mmol/L (135-144)
[2018-03-23] MEDS ORDERED: SUCCINYLCHOLINE CHLORIDE 100 MG/5 ML SYG IV (07:00)
[2018-03-23] MEDS ORDERED: CEFAZOLIN 1 GM INJ (07:00)
[2018-03-23 07:32] LABS: ANISOCYTOSIS 1+ (0-0); BAND NEUTROPHILS #M 3.1 10^3/ul (0.0-0.6); BAND NEUTROPHILS % (M) 11 % (0-4); EOSINOPHILS % (M) 1 % (0-7); ERYTHROBLAST% (NRBC) (M) 1 % (0-0); GIANT THROMBO% (M) 3 % (0-0); LYMPHOCYTES #M 3.1 10^3/ul (0.8-2.9); LYMPHOCYTES % (M) 11 % (15-51); MONOCYTE #M 0.8 10^3/ul (0.3-0.9); MONOCYTES % (M) 3 % (0-11); MYELOCYTES #M 0.2 10^3/ul (0.0-0.0); MYELOCYTES % (M) 1 % (0-0); PLATELET ESTIMATE NORMAL; POLYCHROMASIA 1+ (0-0); PROMYELOCYTES #M 1.1 10^3/ul (0-0); PROMYELOCYTES % (M) 4 % (0-0); SEG NEUT #M 20.6 10^3/ul (1.6-7.5); SEGMENTED NEUTROPHILS (M) % 69 % (39-77); SMUDGE%M 1 % (0-0); SPHEROCYTES 1+ (0-0)
[2018-03-23] MEDS: INSULIN ASPART [NOVOLOG] 3 ML PEN SC ×2 (08:35→21:38)
[2018-03-23] MEDS: HEPARIN 5,000 UNIT/0.5 ML VIAL SC ×2 (09:00→21:37)
[2018-03-23] MEDS ORDERED: MIDAZOLAM 1 MG/ML 2 ML INJ (10:52)
[2018-03-23] MEDS ORDERED: ROCURONIUM 50 MG INJ (10:52)
[2018-03-23] MEDS ORDERED: GLYCOPYRROLATE 0.4 MG INJ (10:52)
[2018-03-23] MEDS ORDERED: FENTAnyl 50 MCG/ML VIAL (10:52)
[2018-03-23] MEDS ORDERED: PROPOFOL 20 ML (10:52)
[2018-03-23] MEDS ORDERED: NEOSTIGMINE 3 MG/3 ML SYRINGE (10:52)
[2018-03-23] MEDS ORDERED: LIDOCAINE 2% (SDV) 5 ML INJ (10:52)
[2018-03-23] MEDS ORDERED: DEXAMETHASONE 4 MG/ML 1 ML INJ (11:19)
[2018-03-23] MEDS ORDERED: ONDANSETRON 4 MG INJ (11:19)
[2018-03-23] MEDS: LIDOCAINE 1% (MPF) 30 ML INJ (12:18)
[2018-03-23] MEDS ORDERED: VASOPRESSIN 20 UNITS INJ (12:32)
[2018-03-23] MEDS: VANCOMYCIN 750 MG in SOD CHLORIDE 0.9% 150 ML IVPB (13:28)
[2018-03-23] MEDS: IOHEXOL 300MG/ML 30 ML BTL (13:51)
[2018-03-23] MEDS: FAT EMULSION 20% 250 ML IV (18:04)
[2018-03-24] MEDS: PIPER-TAZO 3.375 GM IV (PMX) 100 ML IVPB ×4 (00:12→17:21)
[2018-03-24] MEDS: ACCU-CHEK XX ×6 (01:00→20:22)
[2018-03-24] MEDS: VANCOMYCIN 750 MG in SOD CHLORIDE 0.9% 150 ML IVPB ×2 (03:27→14:40)
[2018-03-24] MEDS: HYDROmorphONE 1 MG/ML SYG IV ×4 (04:43→20:16)
[2018-03-24] MEDS: PANTOPRAZOLE 40 MG INJ IV (05:55)
[2018-03-24 06:22] LABS: WHITE BLOOD COUNT 30.4 10^3/ul (4.8-10.8)
[2018-03-24 06:22] LABS: ABNORMAL IP MESSAGE 1; HEMATOCRIT 29.5 % (37.0-47.0); HEMOGLOBIN 9.5 g/dl (12.0-16.0); MEAN CORPUSCULAR HGB CONC 32.2 g/dl (32.0-37.0); MEAN CORPUSCULAR VOLUME 93.1 fl (82.0-101.0); MEAN PLATELET VOLUME 11.6 fl (7.4-10.4); NUCLEATED RED BLOOD CELLS% 0.2 /100WBC (0.0-0.0); PLATELET COUNT 176 10^3/UL (140-415); RED BLOOD COUNT 3.17 10^6/ul (4.20-5.40); RED CELL DISTRIBUTION WIDTH 16.1 % (11.5-14.5)
[2018-03-24 06:27] LABS: ADD MAN DIFF? YES; POSITIVE DIFF @See below
[2018-03-24 06:45] LABS: TRIGLYCERIDES 99 mg/dl (0-149)
[2018-03-24 06:47] LABS: ANION GAP 7 (8-16); BLOOD UREA NITROGEN 9 mg/dl (7-20); CALCIUM 7.7 mg/dl (8.4-10.2); CARBON DIOXIDE 26 mmol/L (21-31); CHLORIDE 109 mmol/L (97-110); CREATININE 0.43 mg/dl (0.44-1.00); GLUCOSE 109 mg/dl (70-220); SODIUM 138 mmol/L (135-144)
[2018-03-24 06:53] LABS: PREALBUMIN 14.7 mg/dl (17.6-36.0)
[2018-03-24 07:25] LABS: PHOSPHORUS 3.4 mg/dl (2.5-4.9)
[2018-03-24] MEDS: HEPARIN 5,000 UNIT/0.5 ML VIAL SC ×2 (08:19→22:16)
[2018-03-24] MEDS: INSULIN ASPART [NOVOLOG] 3 ML PEN SC ×2 (08:21→20:30)
[2018-03-24 09:37] LABS: ANISOCYTOSIS 1+ (0-0); BAND NEUTROPHILS #M 3.9 10^3/ul (0.0-0.6); BAND NEUTROPHILS % (M) 13 % (0-4); BASOPHIL #M 0.3 10^3/ul (0.0-0.0); BASOPHILS % (M) 1 % (0-2); GIANT THROMBO% (M) 4 % (0-0); LYMPHOCYTES #M 0.6 10^3/ul (0.8-2.9); LYMPHOCYTES % (M) 2 % (15-51); MICROCYTOSIS 1+ (0-0); MONOCYTE #M 0.6 10^3/ul (0.3-0.9); MONOCYTES % (M) 2 % (0-11); MYELOCYTES #M 0.6 10^3/ul (0.0-0.0); MYELOCYTES % (M) 2 % (0-0); PLATELET ESTIMATE NORMAL; POIKILOCYTOSIS 1+ (0-0); POLYCHROMASIA 1+ (0-0); SEG NEUT #M 25.5 10^3/ul (1.6-7.5); SEGMENTED NEUTROPHILS (M) % 80 % (39-77); SMUDGE%M 1 % (0-0); TOXIC GRANULATION 1+ (0-0)
[2018-03-24] MEDS: TPN 1,000 ML IV ×2 (10:26→12:07)
[2018-03-24] MEDS: POLYETHYLENE GLYCOL 17 GM PACKET JT (13:41)
[2018-03-24 15:10] LABS: TROPONIN-I < 0.010 ng/ml (0.000-0.120)
[2018-03-25] MEDS: HYDROmorphONE 1 MG/ML SYG IV ×3 (00:56→13:09)
[2018-03-25] MEDS: ACCU-CHEK XX ×4 (01:01→13:00)
[2018-03-25 02:34] LABS: OCCULT BLOOD STOOL POSITIVE (NEGATIVE)
[2018-03-25 05:44] LABS: ABNORMAL IP MESSAGE 1; HEMOGLOBIN 9.1 g/dl (12.0-16.0); MEAN CORPUSCULAR HEMOGLOBIN 30.3 pg (29.0-33.0); MEAN CORPUSCULAR HGB CONC 32.5 g/dl (32.0-37.0); MEAN CORPUSCULAR VOLUME 93.3 fl (82.0-101.0); MEAN PLATELET VOLUME 11.7 fl (7.4-10.4); NUCLEATED RED BLOOD CELLS% 0.9 /100WBC (0.0-0.0); PLATELET COUNT 218 10^3/UL (140-415); RED CELL DISTRIBUTION WIDTH 16.6 % (11.5-14.5)
[2018-03-25 05:44] LABS: WHITE BLOOD COUNT 21.7 10^3/ul (4.8-10.8)
[2018-03-25 06:02] LABS: ADD MAN DIFF? YES; ANION GAP 6 (8-16); BLOOD UREA NITROGEN 10 mg/dl (7-20); CALCIUM 7.8 mg/dl (8.4-10.2); CARBON DIOXIDE 26 mmol/L (21-31); CHLORIDE 106 mmol/L (97-110); CREATININE 0.53 mg/dl (0.44-1.00); GLUCOSE 79 mg/dl (70-220); POSITIVE DIFF @See below; POTASSIUM 4.1 mmol/L (3.5-5.1); SODIUM 134 mmol/L (135-144)
[2018-03-25 08:14] LABS: ANISOCYTOSIS 1+ (0-0); BAND NEUTROPHILS #M 2.8 10^3/ul (0.0-0.6); BAND NEUTROPHILS % (M) 13 % (0-4); GIANT THROMBO% (M) 2 % (0-0); LYMPHOCYTES #M 1.9 10^3/ul (0.8-2.9); LYMPHOCYTES % (M) 9 % (15-51); METAMYELOCYTES #M 0.2 10^3/ul (0.0-0.0); METAMYELOCYTES %M 1 % (0-0); MICROCYTOSIS 1+ (0-0); MONOCYTE #M 0.4 10^3/ul (0.3-0.9); MONOCYTES % (M) 2 % (0-11); MYELOCYTES #M 0.2 10^3/ul (0.0-0.0); MYELOCYTES % (M) 1 % (0-0); PLATELET ESTIMATE NORMAL; POLYCHROMASIA 3+ (0-0); SEG NEUT #M 16.7 10^3/ul (1.6-7.5); SEGMENTED NEUTROPHILS (M) % 74 % (39-77); SMUDGE%M 8 % (0-0)
[2018-03-25] MEDS: INSULIN ASPART [NOVOLOG] 3 ML PEN SC (09:00)
[2018-03-25] MEDS: HEPARIN 5,000 UNIT/0.5 ML VIAL SC ×2 (09:56→20:26)
[2018-03-25] MEDS ORDERED: DEXAMETHASONE 4 MG/ML 20 MG in DEXTROSE 5% 50 ML IV (17:00)
[2018-03-25] MEDS: RANITIDINE 50 MG in SOD CHLORIDE 0.9% 50 ML IVPB (17:31)
[2018-03-25] MEDS: HYDROmorphONE 4 MG TAB JT (17:31)
[2018-03-25] MEDS: DIPHENHYDRAMINE 50 MG INJ IV (18:10)
[2018-03-25] MEDS: DEXAMETHASONE 4 MG/ML 20 MG in DEXTROSE 5% 50 ML IV (18:10)
[2018-03-25] MEDS: morphine 2 MG INJ IV (18:36)
[2018-03-25] MEDS: PACLITAXEL IV (18:49)
[2018-03-25] MEDS: SOD CHLORIDE 0.9% IV (18:49)
[2018-03-26] MEDS: morphine 2 MG INJ IV ×2 (03:41→04:16)
[2018-03-26] MEDS: HYDROmorphONE 4 MG TAB JT ×3 (04:49→20:17)
[2018-03-26 05:05] LABS: WHITE BLOOD COUNT 16.9 10^3/ul (4.8-10.8)
[2018-03-26 05:05] LABS: ABNORMAL IP MESSAGE 1; HEMATOCRIT 32.7 % (37.0-47.0); HEMOGLOBIN 10.7 g/dl (12.0-16.0); MEAN CORPUSCULAR HEMOGLOBIN 30.2 pg (29.0-33.0); MEAN CORPUSCULAR HGB CONC 32.7 g/dl (32.0-37.0); MEAN CORPUSCULAR VOLUME 92.4 fl (82.0-101.0); MEAN PLATELET VOLUME 11.9 fl (7.4-10.4); NUCLEATED RED BLOOD CELLS% 0.6 /100WBC (0.0-0.0); PLATELET COUNT 271 10^3/UL (140-415); RED BLOOD COUNT 3.54 10^6/ul (4.20-5.40); RED CELL DISTRIBUTION WIDTH 16.4 % (11.5-14.5)
[2018-03-26 05:25] LABS: ANION GAP 6 (8-16); BLOOD UREA NITROGEN 9 mg/dl (7-20); CALCIUM 7.9 mg/dl (8.4-10.2); CARBON DIOXIDE 25 mmol/L (21-31); CHLORIDE 109 mmol/L (97-110); CREATININE 0.47 mg/dl (0.44-1.00); GLUCOSE 129 mg/dl (70-220); POTASSIUM 3.7 mmol/L (3.5-5.1); SODIUM 136 mmol/L (135-144)
[2018-03-26 05:56] LABS: ADD MAN DIFF? YES; POSITIVE DIFF @See below
[2018-03-26] MEDS: HYDROCODONE/APAP (10/325) TAB GTB (06:47)
[2018-03-26] MEDS: HEPARIN 5,000 UNIT/0.5 ML VIAL SC ×2 (08:49→20:18)
[2018-03-26 09:26] LABS: ANISOCYTOSIS 1+ (0-0); BAND NEUTROPHILS % (M) 12 % (0-4); LYMPHOCYTES #M 0.5 10^3/ul (0.8-2.9); LYMPHOCYTES % (M) 3 % (15-51); METAMYELOCYTES #M 0.1 10^3/ul (0.0-0.0); METAMYELOCYTES %M 1 % (0-0); MONOCYTE #M 0.5 10^3/ul (0.3-0.9); MONOCYTES % (M) 3 % (0-11); MYELOCYTES #M 0.3 10^3/ul (0.0-0.0); MYELOCYTES % (M) 2 % (0-0); PLATELET ESTIMATE NORMAL; POLYCHROMASIA 1+ (0-0); PROMYELOCYTES #M 0.1 10^3/ul (0-0); PROMYELOCYTES % (M) 1 % (0-0); REACTIVE LYMPHOCYTES #M 0.5 10^3/ul (0.0-0.0); REACTIVE LYMPHOCYTES% (M) 3 % (0-0); SEGMENTED NEUTROPHILS (M) % 75 % (39-77); SMUDGE%M 48 % (0-0)
[2018-03-26] MEDS: FENTAnyl PATCH 12 MCG/HR TRANSDERM (18:19)
[2018-03-27] MEDS: HYDROmorphONE 4 MG TAB JT ×4 (04:41→23:59)
[2018-03-27] MEDS: HEPARIN 5,000 UNIT/0.5 ML VIAL SC ×2 (09:23→23:04)
[2018-03-27] MEDS: METOCLOPRAMIDE 10 MG INJ IV ×3 (11:56→23:57)
[2018-03-28] MEDS: HYDROmorphONE 4 MG TAB JT ×3 (06:43→19:53)
[2018-03-28] MEDS: HEPARIN 5,000 UNIT/0.5 ML VIAL SC ×2 (09:29→20:25)
[2018-03-28] MEDS: METOCLOPRAMIDE 10 MG INJ IV ×2 (13:38→19:53)
[2018-03-29] MEDS: HYDROmorphONE 4 MG TAB JT (06:36)
[2018-03-29] MEDS: HEPARIN 5,000 UNIT/0.5 ML VIAL SC ×2 (08:48→21:02)
[2018-03-29] MEDS: METOCLOPRAMIDE 10 MG INJ IV ×2 (08:50→18:34)
[2018-03-29] MEDS ORDERED: oxyCODONE 15 MG TAB PO (11:00)
[2018-03-29] MEDS ORDERED: oxyCODONE 5 MG TAB PO (11:30)
[2018-03-29] MEDS: FENTAnyl PATCH 12 MCG/HR TRANSDERM (21:01)
[2018-03-30] MEDS: HEPARIN 5,000 UNIT/0.5 ML VIAL SC (08:47)
[2018-03-30] MEDS: MAGNESIUM HYDROXIDE 30ML CUP JT (15:18)
== END 2018-03-30 18:39 | disposition home health service (06) | DRG 374 ==
LOC: MS2 03-24 02:28 → MS1 03-25 00:24 → E/R 10:15 → TEL 03-18 20:20 → ICU 03-18 23:06 → MS1 12:40
PROC: 0DH63UZ Insertion of Feeding Device into Stomach, Percutaneous Approach (ICD-10-PCS; principal; 2018-03-18 16:30)
PROC: 3E0G76Z Introduction of Nutritional Substance into Upper GI, Via Natural or Artificial Opening (ICD-10-PCS; 2018-03-18 16:30)
PROC: 0DHA3UZ Insertion of Feeding Device into Jejunum, Percutaneous Approach (ICD-10-PCS; 2018-03-18 16:30)
PROC: 02HV33Z Insertion of Infusion Device into Superior Vena Cava, Percutaneous Approach (ICD-10-PCS; 2018-03-18 16:30)
PROC: B548ZZA Ultrasonography of Superior Vena Cava, Guidance (ICD-10-PCS; 2018-03-18 16:30)
PROC: 30233N1 Transfusion of Nonautologous Red Blood Cells into Peripheral Vein, Percutaneous Approach (ICD-10-PCS; 2018-03-18 16:30)
PROC: 0W9G3ZZ Drainage of Peritoneal Cavity, Percutaneous Approach (ICD-10-PCS; 2018-03-18 16:30)
DX: C16.9 Malignant neoplasm of stomach, unspecified (principal); A41.9 Sepsis, unspecified organism; E43 Unspecified severe protein-calorie malnutrition; R18.0 Malignant ascites; J91.0 Malignant pleural effusion; K31.1 Adult hypertrophic pyloric stenosis; B37.81 Candidal esophagitis; C79.9 Secondary malignant neoplasm of unspecified site; L03.311 Cellulitis of abdominal wall; D64.9 Anemia, unspecified; E83.51 Hypocalcemia; I95.9 Hypotension, unspecified; R68.0 Hypothermia, not associated with low environmental temperature; D70.1 Agranulocytosis secondary to cancer chemotherapy; T45.1X5A Adverse effect of antineoplastic and immunosuppressive drugs, initial encounter; D72.819 Decreased white blood cell count, unspecified
CPT/HCPCS: 36415; 36430; 36569; 71045; 74018; 74177; 76937; 80048; 80053; 80202; 81001; 81003; 82040; 82270; 82962; 83605; 83690; 83735; 84100; 84134; 84157; 84478; 84484; 84703; 85014; 85018; 85025; 85610; 86644; 86850; 86900; 86901; 86920; 87040; 87070; 87081; 87102; 87116; 88104; 88305; 89051; 92610; 93005; 96374; 96375; 97116; 97161; 97530; 99285-25; J9267

== ENCOUNTER 2018-04-18 10:46 | Emergency (ER) | payer MEDICAID ==
[2018-04-18] MEDS ORDERED: DIATR MEGLU/DIATRIZOATE SODIUM 120 ML BTL (12:11)
== END 2018-04-18 13:36 | disposition home or self-care (01) ==
LOC: FTE 10:46
DX: K94.23 Gastrostomy malfunction (principal); Z85.028 Personal history of other malignant neoplasm of stomach
CPT/HCPCS: 43760; 74018; 99284-25

== ENCOUNTER 2018-04-19 09:13 | Emergency (ER) | payer MEDICAID ==
[2018-04-19] MEDS: morphine 4 MG/ML VIAL IV (12:05)
== END 2018-04-19 12:39 | disposition home or self-care (01) ==
LOC: E/R 09:13
DX: K94.23 Gastrostomy malfunction (principal); R00.0 Tachycardia, unspecified; G89.3 Neoplasm related pain (acute) (chronic); Z85.028 Personal history of other malignant neoplasm of stomach
CPT/HCPCS: 96374; 99284-25

== ENCOUNTER 2018-05-31 17:41 | Inpatient (IN) | payer MEDICAID ==
[2018-05-31] MEDS: CEFEPIME 2GM/50 ML (PMX) 50 ML IVPB (18:45)
[2018-05-31] MEDS: SODIUM CHLORIDE 0.9% 1L BAG IV* (18:46)
[2018-05-31] MEDS: FENTAnyl 50 MCG/ML VIAL IV (19:12)
[2018-05-31] MEDS: VANCOMYCIN 1 GM (PMX) 250 ML IVPB (19:13)
[2018-05-31 19:21] LABS: ADD MAN DIFF? NO
[2018-05-31] MEDS ORDERED: CA CHLORIDE 10% 10 ML SYRINGE (19:22)
[2018-05-31 19:23] LABS: WHITE BLOOD COUNT 3.1 10^3/ul (4.8-10.8)
[2018-05-31 19:23] LABS: BASOPHILS % 1.3 % (0.0-2.0); HEMATOCRIT 29.8 % (37.0-47.0); HEMOGLOBIN 9.7 g/dl (12.0-16.0); LYMPHOCYTES # 0.8 10^3/ul (0.8-2.9); LYMPHOCYTES % 24.6 % (15.0-51.0); MEAN CORPUSCULAR HEMOGLOBIN 28.4 pg (29.0-33.0); MEAN CORPUSCULAR HGB CONC 32.6 g/dl (32.0-37.0); MEAN CORPUSCULAR VOLUME 87.4 fl (82.0-101.0); MEAN PLATELET VOLUME 10.6 fl (7.4-10.4); MONOCYTE # 0.2 10^3/ul (0.3-0.9); MONOCYTES % 7.8 % (0.0-11.0); NEUTROPHILS % 64.7 % (39.0-77.0); NUCLEATED RED BLOOD CELLS% 0.6 /100WBC (0.0-0.0); PLATELET COUNT 502 10^3/UL (140-415); RED BLOOD COUNT 3.41 10^6/ul (4.20-5.40); RED CELL DISTRIBUTION WIDTH 18.6 % (11.5-14.5)
[2018-05-31] MEDS ORDERED: ONDANSETRON 4 MG INJ (19:23)
[2018-05-31 19:45] LABS: INR 0.95; PROTIME 12.8 Sec (11.9-14.9)
[2018-05-31 19:46] LABS: ALANINE AMINOTRANSFERASE 67 IU/L (13-69); ALBUMIN 3.8 g/dl (3.3-4.9); ALKALINE PHOSPHATASE 345 IU/L (42-121); AMYLASE 75 U/L (11-123); ASPARTATE AMINO TRANSFERASE 63 IU/L (15-46); BILIRUBIN,INDIRECT 0.4 mg/dl (0-1.1); BILIRUBIN,TOTAL 0.4 mg/dl (0.2-1.3); BLOOD UREA NITROGEN 90 mg/dl (7-20); CHLORIDE 75 mmol/L (97-110); CREATININE 0.89 mg/dl (0.44-1.00); GLUCOSE 110 mg/dl (70-220); LIPASE 76 U/L (23-300); PARTIAL THROMBOPLASTIN TIME 30.4 Sec (23.0-35.0); SODIUM 133 mmol/L (135-144); TOTAL PROTEIN 7.6 g/dl (6.1-8.1)
[2018-05-31] MEDS: ONDANSETRON 4 MG INJ IV (20:05)
[2018-05-31 20:07] LABS: LACTIC ACID 3.2 mmol/L (0.5-2.0)
[2018-05-31 20:13] LABS: ANION GAP 16 (8-16); CARBON DIOXIDE 45 mmol/L (21-31); POTASSIUM 2.6 mmol/L (3.5-5.1)
[2018-05-31 20:16] LABS: TROPONIN-I < 0.012 ng/ml (0.000-0.120)
[2018-05-31] MEDS ORDERED: ACETAMINOPHEN 325 MG TAB PO ×2 (20:30→22:30)
[2018-05-31] MEDS ORDERED: ONDANSETRON 4 MG INJ IV (20:30)
[2018-05-31 20:34] LABS: ADD UMIC NO; UR ASCORBIC ACID 40 mg/dL (NEGATIVE); UR BILIRUBIN (Dip) NEGATIVE (NEGATIVE); UR BLOOD (Dip) NEGATIVE (NEGATIVE); UR CLARITY CLEAR (CLEAR); UR COLOR YELLOW (YELLOW); UR GLUCOSE (Dip) NEGATIVE (NEGATIVE); UR KETONES (Dip) NEGATIVE (NEGATIVE); UR LEUKOCYTE ESTERASE (Dip) NEGATIVE Leu/ul (NEGATIVE); UR NITRITE (Dip) NEGATIVE (NEGATIVE); UR SPECIFIC GRAVITY (Dip) 1.013 (1.003-1.030); UR TOTAL PROTEIN (Dip) NEGATIVE (NEGATIVE); UR UROBILINOGEN (Dip) NEGATIVE (NEGATIVE)
[2018-05-31] MEDS: SOD CHLORIDE 0.9% 1,000 ML IV ×2 (20:34→22:01)
[2018-05-31] MEDS: POTASSIUM CHLORIDE 100 ML IVPB (20:43)
[2018-05-31 21:17] LABS: LACTIC ACID 1.6 mmol/L (0.5-2.0)
[2018-05-31] MEDS ORDERED: NACL 0.9% 3 ML SYG IV (22:30)
[2018-05-31] MEDS ORDERED: HYDROCODONE/APAP (5/325) TAB PO (22:30)
[2018-05-31] MEDS ORDERED: ALBUTEROL/IPRATROPIUM (NEB) 3 ML AMP HHN (22:30)
[2018-05-31] MEDS: SOD CHLORIDE 0.9% 500 ML IV (22:30)
[2018-05-31 22:38] LABS: CREATINE KINASE < 20 IU/L (23-200)
[2018-05-31 23:16] LABS: CK-MB 0.35 ng/ml (0.0-2.4); TROPONIN-I < 0.012 ng/ml (0.000-0.120)
[2018-05-31] MEDS ORDERED: NORepinephrine 8MG/250 ML (PMX 250 ML (23:19)
[2018-06-01 00:43] LABS: AADO2 Arterial 21.2 mmHg (7.0-24.0); Allen Test ACCEPTAB; Arterial Base Excess 9.8 mmol/L (-3.0-3); Arterial COHb 0.9 % (0.0-3.0); Arterial Fraction of Oxyhgb 94.8 % (93.0-99.0); Arterial HCO3 32.6 mmol/L (22.0-26.0); Arterial MetHb 0.3 % (0.0-1.5); Arterial Total Hemglobin 8.1 g/dl (12.0-18.0); Arterial pCO2 36.2 mmhg (35-45); MODE ROOM AIR; Site Right Radial
[2018-06-01 05:25] LABS: WHITE BLOOD COUNT 2.3 10^3/ul (4.8-10.8)
[2018-06-01 05:25] LABS: HEMATOCRIT 24.9 % (37.0-47.0); HEMOGLOBIN 7.9 g/dl (12.0-16.0); MEAN CORPUSCULAR HEMOGLOBIN 28.6 pg (29.0-33.0); MEAN CORPUSCULAR HGB CONC 31.7 g/dl (32.0-37.0); MEAN CORPUSCULAR VOLUME 90.2 fl (82.0-101.0); MEAN PLATELET VOLUME 10.3 fl (7.4-10.4); PLATELET COUNT 379 10^3/UL (140-415); RED BLOOD COUNT 2.76 10^6/ul (4.20-5.40); RED CELL DISTRIBUTION WIDTH 18.8 % (11.5-14.5)
[2018-06-01 05:33] LABS: POSITIVE DIFF @See below
[2018-06-01 05:34] LABS: ADD MAN DIFF? YES
[2018-06-01 06:00] LABS: ALANINE AMINOTRANSFERASE 66 IU/L (13-69); ALBUMIN 2.5 g/dl (3.3-4.9); ALKALINE PHOSPHATASE 269 IU/L (42-121); ANION GAP 8 (8-16); ASPARTATE AMINO TRANSFERASE 54 IU/L (15-46); BILIRUBIN,INDIRECT 0.5 mg/dl (0-1.1); BILIRUBIN,TOTAL 0.5 mg/dl (0.2-1.3); BLOOD UREA NITROGEN 41 mg/dl (7-20); CALCIUM 7.8 mg/dl (8.4-10.2); CARBON DIOXIDE 37 mmol/L (21-31); CHLORIDE 100 mmol/L (97-110); CHOL/HDL RATIO 3.4 RATIO; CHOLESTEROL 124 mg/dl (100-200); CREATINE KINASE < 20 IU/L (23-200); CREATININE 0.55 mg/dl (0.44-1.00); GLUCOSE 114 mg/dl (70-220); HDL CHOLESTEROL 36 mg/dl (34-88); LDL CHOLESTEROL,CALCULATED 54 mg/dl; MAGNESIUM 2.8 mg/dl (1.7-2.5); SODIUM 142 mmol/L (135-144); TOTAL PROTEIN 5.6 g/dl (6.1-8.1); TRIGLYCERIDES 168 mg/dl (0-149)
[2018-06-01] MEDS: HYDROCODONE/APAP (5/325) TAB PO ×3 (06:02→23:09)
[2018-06-01 06:06] LABS: CK-MB 0.36 ng/ml (0.0-2.4); TROPONIN-I < 0.012 ng/ml (0.000-0.120)
[2018-06-01 06:23] LABS: THYROID STIMULATING HORMONE 0.924 MIU/L (0.465-4.680)
[2018-06-01 06:31] LABS: POTASSIUM 2.8 mmol/L (3.5-5.1)
[2018-06-01] MEDS: SOD CHLORIDE 0.9% 1,000 ML IV ×3 (06:52→17:51)
[2018-06-01 07:08] LABS: HEMOGLOBIN A1C 5.4 % (0-5.9)
[2018-06-01] MEDS: ONDANSETRON 4 MG INJ IV ×2 (08:12→20:27)
[2018-06-01] MEDS: POTASSIUM CHLORIDE 100 ML IVPB ×3 (08:17→12:54)
[2018-06-01 08:21] LABS: ANISOCYTOSIS 1+ (0-0); BAND NEUTROPHILS #M 0.7 10^3/ul (0.0-0.6); BAND NEUTROPHILS % (M) 31 % (0-4); EOSINOPHILS % (M) 1 % (0-7); ERYTHROBLAST% (NRBC) (M) 3 % (0-0); GIANT THROMBO% (M) 1 % (0-0); HYPOCHROMASIA 1+ (0-0); LYMPHOCYTES #M 0.6 10^3/ul (0.8-2.9); LYMPHOCYTES % (M) 30 % (15-51); METAMYELOCYTES %M 2 % (0-0); MICROCYTOSIS 1+ (0-0); MONOCYTES % (M) 4 % (0-11); MYELOCYTES #M 0.1 10^3/ul (0.0-0.0); MYELOCYTES % (M) 7 % (0-0); PLATELET ESTIMATE NORMAL; POLYCHROMASIA 3+ (0-0); REACTIVE LYMPHOCYTES% (M) 2 % (0-0); SEG NEUT #M 0.5 10^3/ul (1.6-7.5); SEGMENTED NEUTROPHILS (M) % 22 % (39-77); SMUDGE%M 48 % (0-0); SPHEROCYTES 1+ (0-0)
[2018-06-01] MEDS: FENTAnyl PATCH 12 MCG/HR TRANSDERM (08:23)
[2018-06-01 09:01] LABS: CARCINOEMBRYONIC ANTIGEN 3.5 ng/ml (0.0-5.0)
[2018-06-01] MEDS: HEPARIN 5,000 UNIT/0.5 ML VIAL SC ×2 (09:29→20:18)
[2018-06-01] MEDS: AL HYDROX/MG HYDROX/SIMETH 30 ML CUP PO ×3 (10:29→23:00)
[2018-06-01 10:48] LABS: HEMATOCRIT 26.6 % (37.0-47.0); HEMOGLOBIN 8.2 g/dl (12.0-16.0); MEAN CORPUSCULAR HEMOGLOBIN 28.1 pg (29.0-33.0); MEAN CORPUSCULAR HGB CONC 30.8 g/dl (32.0-37.0); MEAN CORPUSCULAR VOLUME 91.1 fl (82.0-101.0); MEAN PLATELET VOLUME 10.3 fl (7.4-10.4); PLATELET COUNT 393 10^3/UL (140-415); RED BLOOD COUNT 2.92 10^6/ul (4.20-5.40); RED CELL DISTRIBUTION WIDTH 18.6 % (11.5-14.5)
[2018-06-01 10:48] LABS: WHITE BLOOD COUNT 2.9 10^3/ul (4.8-10.8)
[2018-06-01 10:49] LABS: ADD MAN DIFF? YES; POSITIVE DIFF @See below
[2018-06-01 11:06] LABS: IRON 82 ug/dl (35-150)
[2018-06-01 11:07] LABS: ANION GAP 8 (8-16); BLOOD UREA NITROGEN 28 mg/dl (7-20); CARBON DIOXIDE 34 mmol/L (21-31); CHLORIDE 103 mmol/L (97-110); GLUCOSE 111 mg/dl (70-220); POTASSIUM 3.1 mmol/L (3.5-5.1); SODIUM 142 mmol/L (135-144)
[2018-06-01 11:15] LABS: % IRON SATURATION 27 % SAT (22-52); TOTAL IRON BINDING CAPACITY 302 ug/dl (241-421)
[2018-06-01 11:40] LABS: ANISOCYTOSIS 1+ (0-0); BAND NEUTROPHILS #M 0.9 10^3/ul (0.0-0.6); BAND NEUTROPHILS % (M) 34 % (0-4); BASOPHILS % (M) 2 % (0-2); GIANT THROMBO% (M) 1 % (0-0); LYMPHOCYTES #M 0.7 10^3/ul (0.8-2.9); LYMPHOCYTES % (M) 25 % (15-51); METAMYELOCYTES %M 3 % (0-0); MICROCYTOSIS 1+ (0-0); MONOCYTE #M 0.1 10^3/ul (0.3-0.9); MONOCYTES % (M) 5 % (0-11); MYELOCYTES #M 0.1 10^3/ul (0.0-0.0); MYELOCYTES % (M) 5 % (0-0); PLATELET ESTIMATE INCREASED; REACTIVE LYMPHOCYTES% (M) 2 % (0-0); SEG NEUT #M 0.7 10^3/ul (1.6-7.5); SEGMENTED NEUTROPHILS (M) % 24 % (39-77); SMUDGE%M 41 % (0-0); SPHEROCYTES 1+ (0-0)
[2018-06-01 12:26] LABS: FOLATE > 20.0 ng/ml (2.8-20.0)
[2018-06-01] MEDS: morphine 4 MG/ML VIAL IV (12:37)
[2018-06-01] MEDS: POTASSIUM CHLORIDE (SR) 20 MEQ TAB PO (16:11)
[2018-06-01] MEDS: morphine 2 MG INJ IV ×3 (20:16→23:37)
[2018-06-01] MEDS: LORAZEPAM 1 MG TAB PO (23:19)
[2018-06-02] MEDS: SOD CHLORIDE 0.9% 1,000 ML IV ×3 (00:37→14:27)
[2018-06-02] MEDS: AL HYDROX/MG HYDROX/SIMETH 30 ML CUP PO ×4 (03:12→19:07)
[2018-06-02] MEDS: morphine 2 MG INJ IV ×4 (03:19→19:08)
[2018-06-02 04:52] LABS: ADD MAN DIFF? NO
[2018-06-02 04:58] LABS: BASOPHIL # 0.1 10^3/ul (0.0-0.1); BASOPHILS % 1.9 % (0.0-2.0); EOSINOPHILS % 0.2 % (0.0-7.0); HEMATOCRIT 26.6 % (37.0-47.0); HEMOGLOBIN 8.2 g/dl (12.0-16.0); LYMPHOCYTES # 1.6 10^3/ul (0.8-2.9); LYMPHOCYTES % 37.9 % (15.0-51.0); MEAN CORPUSCULAR HEMOGLOBIN 28.7 pg (29.0-33.0); MEAN CORPUSCULAR HGB CONC 30.8 g/dl (32.0-37.0); MEAN PLATELET VOLUME 10.8 fl (7.4-10.4); MONOCYTE # 0.3 10^3/ul (0.3-0.9); MONOCYTES % 6.3 % (0.0-11.0); NEUTROPHIL # 2.3 10^3/ul (1.6-7.5); PLATELET COUNT 380 10^3/UL (140-415); RED BLOOD COUNT 2.86 10^6/ul (4.20-5.40); RED CELL DISTRIBUTION WIDTH 18.7 % (11.5-14.5)
[2018-06-02 04:58] LABS: WHITE BLOOD COUNT 4.3 10^3/ul (4.8-10.8)
[2018-06-02 05:30] LABS: ANION GAP 7 (8-16); BLOOD UREA NITROGEN 13 mg/dl (7-20); CALCIUM 8.3 mg/dl (8.4-10.2); CARBON DIOXIDE 31 mmol/L (21-31); CHLORIDE 110 mmol/L (97-110); CREATININE 0.49 mg/dl (0.44-1.00); GLUCOSE 93 mg/dl (70-220); SODIUM 145 mmol/L (135-144)
[2018-06-02] MEDS: HYDROCODONE/APAP (5/325) TAB PO ×2 (06:55→13:06)
[2018-06-02] MEDS: HEPARIN 5,000 UNIT/0.5 ML VIAL SC ×2 (08:13→21:28)
[2018-06-02] MEDS: LORAZEPAM 1 MG TAB PO (08:23)
[2018-06-02] MEDS: ONDANSETRON 4 MG INJ IV ×2 (08:38→16:07)
[2018-06-02] MEDS ORDERED: POTASSIUM CHLORIDE (SR) 20 MEQ TAB PO ×2 (09:01→11:18)
[2018-06-02] MEDS: POTASSIUM CHLORIDE 20 MEQ POWDER FOR ORAL SOLN JT (11:46)
[2018-06-02] MEDS: morphine 4 MG/ML VIAL IV ×3 (13:07→23:22)
[2018-06-02 16:44] LABS: POTASSIUM 3.6 mmol/L (3.5-5.1)
[2018-06-02] MEDS ORDERED: PENDING SANTYL ORDER FOR WOUND CARE XX (21:00)
[2018-06-02] MEDS: IOHEXOL 14.3 MG(I)/ML (ADULT) BTL PO (23:09)
[2018-06-03] MEDS: SOD CHLORIDE 0.9% 1,000 ML IV ×2 (00:26→07:45)
[2018-06-03] MEDS: SOD CHLORIDE 0.9% 100 ML (01:14)
[2018-06-03] MEDS: IOHEXOL 300MG/ML 150 ML BTL (01:14)
[2018-06-03] MEDS: ONDANSETRON 4 MG INJ IV ×4 (02:15→22:08)
[2018-06-03] MEDS: morphine 4 MG/ML VIAL IV ×4 (02:28→11:43)
[2018-06-03 05:30] LABS: ANION GAP 8 (8-16); BLOOD UREA NITROGEN 7 mg/dl (7-20); CALCIUM 7.9 mg/dl (8.4-10.2); CARBON DIOXIDE 28 mmol/L (21-31); CHLORIDE 111 mmol/L (97-110); CREATININE 0.48 mg/dl (0.44-1.00); GLUCOSE 76 mg/dl (70-220); POTASSIUM 3.6 mmol/L (3.5-5.1); SODIUM 143 mmol/L (135-144)
[2018-06-03] MEDS: PANTOPRAZOLE 40 MG INJ IV (06:55)
[2018-06-03] MEDS: HYDROCODONE/APAP (10/325) TAB NGT (07:33)
[2018-06-03] MEDS: HEPARIN 5,000 UNIT/0.5 ML VIAL SC ×2 (10:04→20:48)
[2018-06-03] MEDS ORDERED: ACETAMINOPHEN 1000MG/100ML IV 100 ML IVPB (13:00)
[2018-06-03] MEDS ORDERED: HYDROmorphONE 2 MG/ML SYG IV (13:00)
[2018-06-03] MEDS: HYDROmorphONE 2 MG/ML SYG IV ×3 (14:02→22:10)
[2018-06-03] MEDS: ACETAMINOPHEN 1000MG/100ML IV 100 ML IVPB ×2 (14:02→20:10)
[2018-06-04] MEDS: HYDROmorphONE 2 MG/ML SYG IV ×7 (02:03→23:03)
[2018-06-04] MEDS: ONDANSETRON 4 MG INJ IV ×4 (02:09→23:02)
[2018-06-04] MEDS: ACETAMINOPHEN 1000MG/100ML IV 100 ML IVPB ×4 (02:09→22:06)
[2018-06-04 05:38] LABS: HEMATOCRIT 24.3 % (37.0-47.0); HEMOGLOBIN 7.4 g/dl (12.0-16.0); MEAN CORPUSCULAR HEMOGLOBIN 28.6 pg (29.0-33.0); MEAN CORPUSCULAR HGB CONC 30.5 g/dl (32.0-37.0); MEAN CORPUSCULAR VOLUME 93.8 fl (82.0-101.0); MEAN PLATELET VOLUME 10.6 fl (7.4-10.4); NUCLEATED RED BLOOD CELLS% 0.6 /100WBC (0.0-0.0); PLATELET COUNT 375 10^3/UL (140-415); RED BLOOD COUNT 2.59 10^6/ul (4.20-5.40); RED CELL DISTRIBUTION WIDTH 19.2 % (11.5-14.5)
[2018-06-04 05:38] LABS: WHITE BLOOD COUNT 4.7 10^3/ul (4.8-10.8)
[2018-06-04 05:53] LABS: ADD MAN DIFF? YES; POSITIVE DIFF @See below
[2018-06-04 05:57] LABS: ANION GAP 7 (8-16); BLOOD UREA NITROGEN 9 mg/dl (7-20); CALCIUM 8.2 mg/dl (8.4-10.2); CARBON DIOXIDE 26 mmol/L (21-31); CHLORIDE 112 mmol/L (97-110); GLUCOSE 91 mg/dl (70-220); POTASSIUM 3.4 mmol/L (3.5-5.1); SODIUM 142 mmol/L (135-144)
[2018-06-04] MEDS: PANTOPRAZOLE 40 MG INJ IV (06:01)
[2018-06-04 06:38] LABS: ANISOCYTOSIS 1+ (0-0); BAND NEUTROPHILS #M 0.7 10^3/ul (0.0-0.6); BAND NEUTROPHILS % (M) 15 % (0-4); BASOPHILS % (M) 2 % (0-2); EOSINOPHILS % (M) 2 % (0-7); LYMPHOCYTES #M 0.3 10^3/ul (0.8-2.9); LYMPHOCYTES % (M) 7 % (15-51); MONOCYTE #M 0.2 10^3/ul (0.3-0.9); MONOCYTES % (M) 5 % (0-11); PLATELET ESTIMATE NORMAL; POLYCHROMASIA 2+ (0-0); SEG NEUT #M 3.3 10^3/ul (1.6-7.5); SEGMENTED NEUTROPHILS (M) % 69 % (39-77); SMUDGE%M 14 % (0-0); SPHEROCYTES 1+ (0-0)
[2018-06-04] MEDS: HEPARIN 5,000 UNIT/0.5 ML VIAL SC ×2 (08:21→22:25)
[2018-06-04] MEDS: POTASSIUM CHLORIDE 50 ML IVPB ×2 (12:27→15:30)
[2018-06-04 13:35] LABS: HEMATOCRIT 25.8 % (37.0-47.0); HEMOGLOBIN 7.9 g/dl (12.0-16.0)
[2018-06-04] MEDS: LIDOCAINE 5% 35 GM OINT TOP (13:42)
[2018-06-05] MEDS: ONDANSETRON 4 MG INJ IV ×3 (02:45→21:30)
[2018-06-05] MEDS: HYDROmorphONE 2 MG/ML SYG IV ×6 (02:45→21:30)
[2018-06-05] MEDS: ACETAMINOPHEN 1000MG/100ML IV 100 ML IVPB ×4 (02:46→21:51)
[2018-06-05 05:01] LABS: ADD MAN DIFF? NO
[2018-06-05 05:03] LABS: BASOPHILS % 0.4 % (0.0-2.0); EOSINOPHILS # 0.1 10^3/ul (0.0-0.5); EOSINOPHILS % 1.8 % (0.0-7.0); HEMATOCRIT 24.6 % (37.0-47.0); HEMOGLOBIN 7.6 g/dl (12.0-16.0); LYMPHOCYTES # 1.5 10^3/ul (0.8-2.9); LYMPHOCYTES % 30.5 % (15.0-51.0); MEAN CORPUSCULAR HEMOGLOBIN 28.6 pg (29.0-33.0); MEAN CORPUSCULAR HGB CONC 30.9 g/dl (32.0-37.0); MEAN CORPUSCULAR VOLUME 92.5 fl (82.0-101.0); MONOCYTE # 0.4 10^3/ul (0.3-0.9); MONOCYTES % 8.3 % (0.0-11.0); NEUTROPHILS % 58.4 % (39.0-77.0); NUCLEATED RED BLOOD CELLS # 0.1 10^3/ul (0.0-0.0); PLATELET COUNT 374 10^3/UL (140-415); RED BLOOD COUNT 2.66 10^6/ul (4.20-5.40); RED CELL DISTRIBUTION WIDTH 19.9 % (11.5-14.5)
[2018-06-05 05:03] LABS: WHITE BLOOD COUNT 5.1 10^3/ul (4.8-10.8)
[2018-06-05 05:25] LABS: ANION GAP 7 (8-16); BLOOD UREA NITROGEN 11 mg/dl (7-20); CALCIUM 8.1 mg/dl (8.4-10.2); CARBON DIOXIDE 27 mmol/L (21-31); CHLORIDE 114 mmol/L (97-110); CREATININE 0.61 mg/dl (0.44-1.00); GLUCOSE 114 mg/dl (70-220); POTASSIUM 3.7 mmol/L (3.5-5.1); SODIUM 144 mmol/L (135-144)
[2018-06-05 05:27] LABS: INR 1.28; PROTIME 16.2 Sec (11.9-14.9); PT RATIO 1.3
[2018-06-05] MEDS: PANTOPRAZOLE 40 MG INJ IV (05:40)
[2018-06-05] MEDS: HEPARIN 5,000 UNIT/0.5 ML VIAL SC ×2 (08:47→21:53)
[2018-06-05] MEDS: IOHEXOL 300MG/ML 150 ML BTL (13:50)
[2018-06-05] MEDS: DIATR MEGLU/DIATRIZOATE SODIUM 120 ML BTL (13:55)
[2018-06-05] MEDS: LIDOCAINE 1% (MPF) 5 ML VIAL (13:57)
[2018-06-05] MEDS: METHADONE (1 MG/ML 5 ML PO UD SYG) PO (21:52)
[2018-06-06] MEDS: ACETAMINOPHEN 1000MG/100ML IV 100 ML IVPB ×4 (02:35→20:25)
[2018-06-06] MEDS: ONDANSETRON 4 MG INJ IV ×4 (02:35→20:25)
[2018-06-06] MEDS: HYDROmorphONE 2 MG/ML SYG IV ×5 (02:36→20:25)
[2018-06-06] MEDS: PANTOPRAZOLE 40 MG INJ IV (05:36)
[2018-06-06] MEDS: HEPARIN 5,000 UNIT/0.5 ML VIAL SC ×2 (09:27→20:39)
[2018-06-06] MEDS: METHADONE (1 MG/1 ML PO SYG) PO ×2 (09:47→20:40)
[2018-06-06] MEDS: SOD CHLORIDE 0.9% 1,000 ML IV (21:26)
[2018-06-07 01:21] LABS: ADD MAN DIFF? NO
[2018-06-07 01:26] LABS: WHITE BLOOD COUNT 6.9 10^3/ul (4.8-10.8)
[2018-06-07 01:26] LABS: BASOPHILS % 0.3 % (0.0-2.0); EOSINOPHILS # 0.1 10^3/ul (0.0-0.5); EOSINOPHILS % 1.2 % (0.0-7.0); HEMATOCRIT 24.6 % (37.0-47.0); HEMOGLOBIN 7.6 g/dl (12.0-16.0); LYMPHOCYTES % 29.2 % (15.0-51.0); MEAN CORPUSCULAR HEMOGLOBIN 28.7 pg (29.0-33.0); MEAN CORPUSCULAR HGB CONC 30.9 g/dl (32.0-37.0); MEAN CORPUSCULAR VOLUME 92.8 fl (82.0-101.0); MONOCYTE # 0.7 10^3/ul (0.3-0.9); MONOCYTES % 10.7 % (0.0-11.0); NEUTROPHILS % 57.7 % (39.0-77.0); NUCLEATED RED BLOOD CELLS # 0.1 10^3/ul (0.0-0.0); NUCLEATED RED BLOOD CELLS% 1.3 /100WBC (0.0-0.0); PLATELET COUNT 359 10^3/UL (140-415); RED BLOOD COUNT 2.65 10^6/ul (4.20-5.40); RED CELL DISTRIBUTION WIDTH 20.9 % (11.5-14.5)
[2018-06-07] MEDS: HYDROmorphONE 2 MG/ML SYG IV ×6 (01:33→22:31)
[2018-06-07] MEDS: ONDANSETRON 4 MG INJ IV ×6 (01:33→22:33)
[2018-06-07] MEDS: ACETAMINOPHEN 1000MG/100ML IV 100 ML IVPB ×4 (01:34→20:47)
[2018-06-07] MEDS: ALBUMIN HUMAN 25% 50 ML IV ×2 (01:39→08:18)
[2018-06-07 01:46] LABS: LACTIC ACID 1.4 mmol/L (0.5-2.0)
[2018-06-07 01:46] LABS: ANION GAP 5 (8-16); BLOOD UREA NITROGEN 11 mg/dl (7-20); CALCIUM 7.6 mg/dl (8.4-10.2); CARBON DIOXIDE 26 mmol/L (21-31); CHLORIDE 112 mmol/L (97-110); GLUCOSE 92 mg/dl (70-220); POTASSIUM 3.4 mmol/L (3.5-5.1); SODIUM 140 mmol/L (135-144)
[2018-06-07 03:02] LABS: TROPONIN-I < 0.012 ng/ml (0.000-0.120)
[2018-06-07 03:02] LABS: CK-MB < 0.22 ng/ml (0.0-2.4)
[2018-06-07] MEDS: PANTOPRAZOLE 40 MG INJ IV (05:33)
[2018-06-07] MEDS: POTASSIUM CHLORIDE 30 MEQ in SOD CHLORIDE 0.9% 1,000 ML IV (05:39)
[2018-06-07] MEDS: HEPARIN 5,000 UNIT/0.5 ML VIAL SC ×2 (08:22→20:54)
[2018-06-07] MEDS: METHADONE (1 MG/1 ML PO SYG) PO ×2 (08:36→20:48)
[2018-06-08] MEDS: ACETAMINOPHEN 1000MG/100ML IV 100 ML IVPB ×4 (01:53→20:33)
[2018-06-08] MEDS: POTASSIUM CHLORIDE 30 MEQ in SOD CHLORIDE 0.9% 1,000 ML IV ×2 (01:53→20:33)
[2018-06-08] MEDS: HYDROmorphONE 2 MG/ML SYG IV ×5 (02:41→20:34)
[2018-06-08] MEDS: ONDANSETRON 4 MG INJ IV ×5 (02:42→20:44)
[2018-06-08] MEDS: PANTOPRAZOLE 40 MG INJ IV (05:28)
[2018-06-08 06:39] LABS: ANION GAP 7 (8-16); BLOOD UREA NITROGEN 8 mg/dl (7-20); CALCIUM 7.8 mg/dl (8.4-10.2); CARBON DIOXIDE 23 mmol/L (21-31); CHLORIDE 115 mmol/L (97-110); CREATININE 0.48 mg/dl (0.44-1.00); GLUCOSE 95 mg/dl (70-220); MAGNESIUM 1.8 mg/dl (1.7-2.5); POTASSIUM 3.9 mmol/L (3.5-5.1); SODIUM 141 mmol/L (135-144)
[2018-06-08] MEDS: METHADONE (1 MG/1 ML PO SYG) PO ×2 (08:09→20:33)
[2018-06-08] MEDS: HEPARIN 5,000 UNIT/0.5 ML VIAL SC ×2 (08:20→20:37)
[2018-06-09] MEDS: LIDOCAINE 2% JELLY 5 ML TOP (00:20)
[2018-06-09] MEDS: ONDANSETRON 4 MG INJ IV ×6 (00:20→23:42)
[2018-06-09] MEDS: HYDROmorphONE 2 MG/ML SYG IV ×3 (00:20→08:11)
[2018-06-09] MEDS: ACETAMINOPHEN 1000MG/100ML IV 100 ML IVPB ×2 (02:06→08:11)
[2018-06-09] MEDS: PANTOPRAZOLE 40 MG INJ IV (05:09)
[2018-06-09] MEDS: METHADONE (1 MG/1 ML PO SYG) PO ×2 (08:11→20:46)
[2018-06-09] MEDS: HEPARIN 5,000 UNIT/0.5 ML VIAL SC ×2 (08:53→20:48)
[2018-06-09] MEDS: DIATR MEGLU/DIATRIZOATE SODIUM 120 ML BTL (12:00)
[2018-06-09] MEDS: HYDROmorphONE 2 MG TAB PO ×2 (12:25→16:16)
[2018-06-09] MEDS ORDERED: ONDANSETRON (ODT) 4 MG TAB ODT (14:30)
[2018-06-09] MEDS: POTASSIUM CHLORIDE 30 MEQ in SOD CHLORIDE 0.9% 1,000 ML IV (17:14)
[2018-06-09] MEDS: HYDROmorphONE 1 MG/ML SYG IV ×2 (18:51→23:42)
[2018-06-10] MEDS: HYDROmorphONE 1 MG/ML SYG IV ×6 (04:35→21:18)
[2018-06-10 04:53] LABS: ADD MAN DIFF? NO
[2018-06-10 05:12] LABS: BASOPHILS % 0.5 % (0.0-2.0); EOSINOPHILS # 0.1 10^3/ul (0.0-0.5); EOSINOPHILS % 0.8 % (0.0-7.0); HEMATOCRIT 25.8 % (37.0-47.0); HEMOGLOBIN 7.9 g/dl (12.0-16.0); LYMPHOCYTES # 3.3 10^3/ul (0.8-2.9); LYMPHOCYTES % 41.7 % (15.0-51.0); MEAN CORPUSCULAR HEMOGLOBIN 28.5 pg (29.0-33.0); MEAN CORPUSCULAR HGB CONC 30.6 g/dl (32.0-37.0); MEAN CORPUSCULAR VOLUME 93.1 fl (82.0-101.0); MEAN PLATELET VOLUME 10.3 fl (7.4-10.4); MONOCYTES % 12.1 % (0.0-11.0); NEUTROPHIL # 3.5 10^3/ul (1.6-7.5); NEUTROPHILS % 44.5 % (39.0-77.0); NUCLEATED RED BLOOD CELLS% 0.4 /100WBC (0.0-0.0); PLATELET COUNT 379 10^3/UL (140-415); RED BLOOD COUNT 2.77 10^6/ul (4.20-5.40); RED CELL DISTRIBUTION WIDTH 21.8 % (11.5-14.5)
[2018-06-10 05:12] LABS: WHITE BLOOD COUNT 7.9 10^3/ul (4.8-10.8)
[2018-06-10 05:46] LABS: ALANINE AMINOTRANSFERASE 70 IU/L (13-69); ALBUMIN 1.8 g/dl (3.3-4.9); ALBUMIN/GLOBULIN RATIO 0.66; ALKALINE PHOSPHATASE 268 IU/L (42-121); ANION GAP 8 (8-16); ASPARTATE AMINO TRANSFERASE 35 IU/L (15-46); BILIRUBIN,INDIRECT 0.2 mg/dl (0-1.1); BILIRUBIN,TOTAL 0.2 mg/dl (0.2-1.3); BLOOD UREA NITROGEN 6 mg/dl (7-20); CALCIUM 8.2 mg/dl (8.4-10.2); CARBON DIOXIDE 23 mmol/L (21-31); CHLORIDE 114 mmol/L (97-110); CREATININE 0.55 mg/dl (0.44-1.00); GLUCOSE 68 mg/dl (70-220); POTASSIUM 4.7 mmol/L (3.5-5.1); SODIUM 140 mmol/L (135-144); TOTAL PROTEIN 4.5 g/dl (6.1-8.1)
[2018-06-10] MEDS: PANTOPRAZOLE 40 MG INJ IV (06:15)
[2018-06-10] MEDS: METHADONE (1 MG/1 ML PO SYG) PO ×2 (08:46→20:42)
[2018-06-10] MEDS: HEPARIN 5,000 UNIT/0.5 ML VIAL SC ×2 (08:49→20:46)
[2018-06-10] MEDS: ONDANSETRON 4 MG INJ IV ×4 (08:52→22:15)
[2018-06-10] MEDS: POTASSIUM CHLORIDE 30 MEQ in SOD CHLORIDE 0.9% 1,000 ML IV (14:24)
[2018-06-11] MEDS: HYDROmorphONE 1 MG/ML SYG IV ×3 (00:25→08:37)
[2018-06-11] MEDS: ONDANSETRON 4 MG INJ IV ×5 (04:24→21:07)
[2018-06-11 05:04] LABS: ADD MAN DIFF? NO
[2018-06-11 05:09] LABS: BASOPHIL # 0.1 10^3/ul (0.0-0.1); BASOPHILS % 0.9 % (0.0-2.0); EOSINOPHILS # 0.1 10^3/ul (0.0-0.5); EOSINOPHILS % 1.1 % (0.0-7.0); HEMATOCRIT 25.4 % (37.0-47.0); HEMOGLOBIN 7.8 g/dl (12.0-16.0); LYMPHOCYTES # 2.7 10^3/ul (0.8-2.9); LYMPHOCYTES % 38.8 % (15.0-51.0); MEAN CORPUSCULAR HEMOGLOBIN 28.7 pg (29.0-33.0); MEAN CORPUSCULAR HGB CONC 30.7 g/dl (32.0-37.0); MEAN CORPUSCULAR VOLUME 93.4 fl (82.0-101.0); MONOCYTE # 0.8 10^3/ul (0.3-0.9); MONOCYTES % 11.7 % (0.0-11.0); NEUTROPHIL # 3.3 10^3/ul (1.6-7.5); NEUTROPHILS % 47.2 % (39.0-77.0); PLATELET COUNT 383 10^3/UL (140-415); RED BLOOD COUNT 2.72 10^6/ul (4.20-5.40)
[2018-06-11] MEDS: PANTOPRAZOLE 40 MG INJ IV (05:39)
[2018-06-11 05:40] LABS: ALANINE AMINOTRANSFERASE 56 IU/L (13-69); ALBUMIN 1.8 g/dl (3.3-4.9); ALBUMIN/GLOBULIN RATIO 0.62; ALKALINE PHOSPHATASE 229 IU/L (42-121); ANION GAP 8 (8-16); ASPARTATE AMINO TRANSFERASE 31 IU/L (15-46); BILIRUBIN,INDIRECT 0.3 mg/dl (0-1.1); BILIRUBIN,TOTAL 0.3 mg/dl (0.2-1.3); BLOOD UREA NITROGEN 5 mg/dl (7-20); CALCIUM 8.1 mg/dl (8.4-10.2); CARBON DIOXIDE 22 mmol/L (21-31); CHLORIDE 115 mmol/L (97-110); GLUCOSE 67 mg/dl (70-220); POTASSIUM 4.6 mmol/L (3.5-5.1); SODIUM 140 mmol/L (135-144); TOTAL PROTEIN 4.7 g/dl (6.1-8.1)
[2018-06-11] MEDS: HEPARIN 5,000 UNIT/0.5 ML VIAL SC ×2 (10:10→21:11)
[2018-06-11] MEDS: METHADONE (1 MG/1 ML PO SYG) PO ×2 (10:11→21:07)
[2018-06-11] MEDS: POTASSIUM CHLORIDE 30 MEQ in SOD CHLORIDE 0.9% 1,000 ML IV (10:11)
[2018-06-11] MEDS: HYDROmorphONE 2 MG TAB PO ×3 (12:46→21:06)
[2018-06-12] MEDS: HYDROmorphONE 2 MG TAB PO ×5 (01:14→17:19)
[2018-06-12] MEDS: ONDANSETRON 4 MG INJ IV ×5 (01:16→17:19)
[2018-06-12] MEDS: PANTOPRAZOLE 40 MG INJ IV (05:10)
[2018-06-12] MEDS: POTASSIUM CHLORIDE 30 MEQ in SOD CHLORIDE 0.9% 1,000 ML IV (06:21)
[2018-06-12] MEDS: METHADONE (1 MG/1 ML PO SYG) PO (09:20)
[2018-06-12] MEDS: HEPARIN 5,000 UNIT/0.5 ML VIAL SC (09:23)
[2018-06-12] MEDS: HEPARIN (100 UNITS/ML) 5 ML SYG CATHETER (19:06)
== END 2018-06-12 19:30 | disposition home health service (06) | DRG 344 ==
LOC: TEL 06-07 02:56 → MS1 06-09 16:27 → E/R 17:41 → MS1 06-04 19:45 → ICU 20:08
PROC: 0DPD3UZ Removal of Feeding Device from Lower Intestinal Tract, Percutaneous Approach (ICD-10-PCS; principal; 2018-06-05)
PROC: 0DHA3UZ Insertion of Feeding Device into Jejunum, Percutaneous Approach (ICD-10-PCS; 2018-06-05)
DX: C16.9 Malignant neoplasm of stomach, unspecified (principal); R57.1 Hypovolemic shock; N17.9 Acute kidney failure, unspecified; C79.89 Secondary malignant neoplasm of other specified sites; E46 Unspecified protein-calorie malnutrition; L03.311 Cellulitis of abdominal wall; K94.13 Enterostomy malfunction; K56.699 Other intestinal obstruction unspecified as to partial versus complete obstruction; T85.598A Other mechanical complication of other gastrointestinal prosthetic devices, implants and grafts, initial encounter; R55 Syncope and collapse; D63.0 Anemia in neoplastic disease; D64.81 Anemia due to antineoplastic chemotherapy; D70.1 Agranulocytosis secondary to cancer chemotherapy; E83.51 Hypocalcemia; E88.09 Other disorders of plasma-protein metabolism, not elsewhere classified; E87.6 Hypokalemia; R10.9 Unspecified abdominal pain; R11.2 Nausea with vomiting, unspecified; S30.811A Abrasion of abdominal wall, initial encounter; X58.XXXA Exposure to other specified factors, initial encounter; Z68.24 Body mass index [BMI] 24.0-24.9, adult; Z96.89 Presence of other specified functional implants; Z93.1 Gastrostomy status
CPT/HCPCS: 36600; 70450; 71045; 74018; 74177; 80048; 80053; 80061; 81003; 82150; 82378; 82550; 82553; 82607; 82728; 82746; 82803; 83036; 83540; 83605; 83690; 83735; 84132; 84443; 84484; 84703; 85014; 85018; 85025; 85610; 85730; 86301; 87040; 87081; 87086; 93005; 93306; 93880; 96374; 96375; 97110; 97116; 97163; 97530; 99291-25

== ENCOUNTER 2018-08-10 20:45 | Inpatient (IN) | payer MEDICAID ==
[2018-08-10] MEDS: SOD CHLORIDE 0.9% 1,000 ML IV ×2 (21:42→23:07)
[2018-08-10 21:43] LABS: ADD MAN DIFF? NO
[2018-08-10 21:46] LABS: WHITE BLOOD COUNT 9.2 10^3/ul (4.8-10.8)
[2018-08-10 21:46] LABS: BASOPHILS % 0.4 % (0.0-2.0); HEMATOCRIT 36.8 % (37.0-47.0); LYMPHOCYTES # 2.3 10^3/ul (0.8-2.9); LYMPHOCYTES % 24.4 % (15.0-51.0); MEAN CORPUSCULAR HEMOGLOBIN 26.1 pg (29.0-33.0); MEAN CORPUSCULAR HGB CONC 32.6 g/dl (32.0-37.0); MEAN CORPUSCULAR VOLUME 80.2 fl (82.0-101.0); MEAN PLATELET VOLUME 10.6 fl (7.4-10.4); MONOCYTE # 0.8 10^3/ul (0.3-0.9); MONOCYTES % 8.8 % (0.0-11.0); NEUTROPHIL # 6.1 10^3/ul (1.6-7.5); NEUTROPHILS % 66.2 % (39.0-77.0); PLATELET COUNT 364 10^3/UL (140-415); RED BLOOD COUNT 4.59 10^6/ul (4.20-5.40); RED CELL DISTRIBUTION WIDTH 15.7 % (11.5-14.5)
[2018-08-10 22:56] LABS: CHLORIDE 59 mmol/L (97-110); SODIUM 130 mmol/L (135-144)
[2018-08-10 22:57] LABS: ALANINE AMINOTRANSFERASE 36 IU/L (13-69); ALBUMIN 4.2 g/dl (3.3-4.9); ALBUMIN/GLOBULIN RATIO 0.95; ALKALINE PHOSPHATASE 139 IU/L (42-121); ASPARTATE AMINO TRANSFERASE 59 IU/L (15-46); BILIRUBIN,INDIRECT 0.3 mg/dl (0-1.1); BILIRUBIN,TOTAL 0.3 mg/dl (0.2-1.3); BLOOD UREA NITROGEN 102 mg/dl (7-20); CALCIUM 9.5 mg/dl (8.4-10.2); CREATININE 1.04 mg/dl (0.44-1.00); Estimated GFR 57 mL/min (>60); GLUCOSE 110 mg/dl (70-220); LIPASE 217 U/L (23-300); MAGNESIUM 3.5 mg/dl (1.7-2.5); TOTAL PROTEIN 8.6 g/dl (6.1-8.1)
[2018-08-10] MEDS ORDERED: ACETAMINOPHEN 325 MG TAB PO (23:00)
[2018-08-10] MEDS: MAGNESIUM SULFATE 2 GM/50 ML 50 ML IVPB (23:07)
[2018-08-10] MEDS: POTASSIUM CHLORIDE 50 ML IVPB (23:07)
[2018-08-10 23:08] LABS: TROPONIN-I 0.022 ng/ml (0.000-0.120)
[2018-08-10 23:15] LABS: ANION GAP 15 (5-13); CARBON DIOXIDE 56 mmol/L (21-31)
[2018-08-10] MEDS ORDERED: BISACODYL (EC) 5 MG TAB PO (23:30)
[2018-08-10] MEDS ORDERED: LORAZEPAM 2 MG INJ IV (23:30)
[2018-08-10] MEDS ORDERED: NACL 0.9% 3 ML SYG IV (23:30)
[2018-08-10] MEDS ORDERED: DOCUSATE SODIUM 100 MG CAP PO (23:30)
[2018-08-11] MEDS: PANTOPRAZOLE 40 MG INJ IV ×2 (00:51→06:28)
[2018-08-11] MEDS: SOD CHLORIDE 0.9% 1,000 ML IV (00:51)
[2018-08-11] MEDS: morphine 2 MG INJ IV (01:14)
[2018-08-11] MEDS: ONDANSETRON 4 MG INJ IV (01:18)
[2018-08-11] MEDS: POTASSIUM CHLORIDE 50 ML IVPB ×4 (01:59→06:28)
[2018-08-11] MEDS: oxyCODONE 15 MG TAB PO ×4 (02:32→18:37)
[2018-08-11 02:45] LABS: BLOOD UREA NITROGEN 60 mg/dl (7-20); CALCIUM 7.8 mg/dl (8.4-10.2); CHLORIDE 85 mmol/L (97-110); CREATININE 0.66 mg/dl (0.44-1.00); Estimated GFR > 60 mL/min (>60); GLUCOSE 83 mg/dl (70-220); SODIUM 135 mmol/L (135-144)
[2018-08-11 02:58] LABS: ANION GAP 7 (5-13)
[2018-08-11 02:59] LABS: CARBON DIOXIDE 43 mmol/L (21-31); POTASSIUM 2.7 mmol/L (3.5-5.1)
[2018-08-11] MEDS: POTASSIUM CHLORIDE 40 MEQ in SOD CHLORIDE 0.9% 1,000 ML IV ×4 (03:28→20:12)
[2018-08-11] MEDS: SOD CHLORIDE 0.9% 500 ML IV (03:45)
[2018-08-11] MEDS ORDERED: POTASSIUM CHLORIDE 100 ML IVPB (04:00)
[2018-08-11] MEDS: ENOXAPARIN 40 MG/0.4 ML SYG SC ×2 (08:30→09:00)
[2018-08-11 11:13] LABS: PHOSPHORUS 2.8 mg/dl (2.5-4.9)
[2018-08-11 11:37] LABS: ADD UMIC YES; UR ASCORBIC ACID NEGATIVE (NEGATIVE); UR BACTERIA FEW /HPF (NONE SEEN); UR BILIRUBIN (Dip) NEGATIVE (NEGATIVE); UR BLOOD (Dip) 3+ mg/dL (NEGATIVE); UR CLARITY SLIGHTLY CLOUDY (CLEAR); UR COLOR YELLOW (YELLOW); UR GLUCOSE (Dip) NEGATIVE (NEGATIVE); UR KETONES (Dip) NEGATIVE (NEGATIVE); UR LEUKOCYTE ESTERASE (Dip) NEGATIVE Leu/ul (NEGATIVE); UR NITRITE (Dip) NEGATIVE (NEGATIVE); UR RBC > 182 /HPF (0-5); UR SPECIFIC GRAVITY (Dip) 1.013 (1.003-1.030); UR SQUAMOUS EPITHELIAL CELL FEW /HPF (FEW); UR TOTAL PROTEIN (Dip) 1+ mg/dl (NEGATIVE); UR UROBILINOGEN (Dip) NEGATIVE (NEGATIVE); UR WBC 56 /HPF (0-5)
[2018-08-11] MEDS: ACETAMINOPHEN 325 MG TAB PEG (11:46)
[2018-08-11 12:17] LABS: SODIUM,URINE RANDOM 75 mmol/L (30-90)
[2018-08-11 13:00] LABS: ADD MAN DIFF? NO
[2018-08-11 13:02] LABS: BASOPHILS % 0.3 % (0.0-2.0); HEMATOCRIT 29.5 % (37.0-47.0); HEMOGLOBIN 9.1 g/dl (12.0-16.0); LYMPHOCYTES # 1.7 10^3/ul (0.8-2.9); MEAN CORPUSCULAR HEMOGLOBIN 26.1 pg (29.0-33.0); MEAN CORPUSCULAR HGB CONC 30.8 g/dl (32.0-37.0); MEAN CORPUSCULAR VOLUME 84.8 fl (82.0-101.0); MEAN PLATELET VOLUME 10.2 fl (7.4-10.4); MONOCYTE # 0.5 10^3/ul (0.3-0.9); MONOCYTES % 8.3 % (0.0-11.0); NEUTROPHIL # 3.7 10^3/ul (1.6-7.5); NEUTROPHILS % 63.2 % (39.0-77.0); PLATELET COUNT 241 10^3/UL (140-415); RED BLOOD COUNT 3.48 10^6/ul (4.20-5.40); RED CELL DISTRIBUTION WIDTH 15.9 % (11.5-14.5)
[2018-08-11 13:02] LABS: WHITE BLOOD COUNT 5.9 10^3/ul (4.8-10.8)
[2018-08-11 13:20] LABS: ANION GAP 1 (5-13); BLOOD UREA NITROGEN 37 mg/dl (7-20); CALCIUM 8.3 mg/dl (8.4-10.2); CARBON DIOXIDE 38 mmol/L (21-31); CHLORIDE 98 mmol/L (97-110); CREATININE 0.61 mg/dl (0.44-1.00); Estimated GFR > 60 mL/min (>60); GLUCOSE 106 mg/dl (70-220); POTASSIUM 4.3 mmol/L (3.5-5.1); SODIUM 137 mmol/L (135-144)
[2018-08-11 13:22] LABS: ALANINE AMINOTRANSFERASE 30 IU/L (13-69); ALBUMIN 2.9 g/dl (3.3-4.9); ALBUMIN/GLOBULIN RATIO 0.87; ALKALINE PHOSPHATASE 92 IU/L (42-121); ANION GAP 1 (5-13); ASPARTATE AMINO TRANSFERASE 41 IU/L (15-46); BILIRUBIN,INDIRECT 0.3 mg/dl (0-1.1); BILIRUBIN,TOTAL 0.3 mg/dl (0.2-1.3); BLOOD UREA NITROGEN 36 mg/dl (7-20); CALCIUM 8.3 mg/dl (8.4-10.2); CARBON DIOXIDE 39 mmol/L (21-31); CHLORIDE 98 mmol/L (97-110); CREATININE 0.61 mg/dl (0.44-1.00); Estimated GFR > 60 mL/min (>60); GLUCOSE 107 mg/dl (70-220); POTASSIUM 4.3 mmol/L (3.5-5.1); SODIUM 138 mmol/L (135-144); TOTAL PROTEIN 6.2 g/dl (6.1-8.1)
[2018-08-11 15:05] LABS: HEMOGLOBIN A1C 5.2 % (0-5.9)
[2018-08-12] MEDS: oxyCODONE 15 MG TAB PO ×3 (00:08→10:21)
[2018-08-12] MEDS: POTASSIUM CHLORIDE 40 MEQ in SOD CHLORIDE 0.9% 1,000 ML IV (00:08)
[2018-08-12] MEDS: ALBUMIN HUMAN 25% 100 ML IV (01:37)
[2018-08-12] MEDS: ACETAMINOPHEN 325 MG TAB PEG (02:58)
[2018-08-12] MEDS: PANTOPRAZOLE 40 MG INJ IV (06:45)
[2018-08-12 06:48] LABS: ANION GAP 5 (5-13); BLOOD UREA NITROGEN 19 mg/dl (7-20); CALCIUM 8.5 mg/dl (8.4-10.2); CARBON DIOXIDE 32 mmol/L (21-31); CHLORIDE 103 mmol/L (97-110); CREATININE 0.45 mg/dl (0.44-1.00); Estimated GFR > 60 mL/min (>60); GLUCOSE 107 mg/dl (70-220); MAGNESIUM 2.3 mg/dl (1.7-2.5); PHOSPHORUS 2.7 mg/dl (2.5-4.9); POTASSIUM 3.8 mmol/L (3.5-5.1); SODIUM 140 mmol/L (135-144)
[2018-08-12] MEDS: ENOXAPARIN 40 MG/0.4 ML SYG SC (08:56)
[2018-08-12 15:36] LABS: CREATININE, RANDOM URINE 35 mg/dL (20-275); MICROALBUMIN/CREATININE RATIO 143 (<30)
[2018-08-12 17:57] LABS: CHLORIDE, RANDOM URINE <20 mmol/L (32-290)
== END 2018-08-12 15:05 | disposition home or self-care (01) | DRG 682 ==
LOC: 6WM 22:59 → E/R 20:45
DX: N17.9 Acute kidney failure, unspecified (principal); E43 Unspecified severe protein-calorie malnutrition; E87.1 Hypo-osmolality and hyponatremia; E87.3 Alkalosis; C16.9 Malignant neoplasm of stomach, unspecified; E86.0 Dehydration; E86.1 Hypovolemia; E87.6 Hypokalemia; I95.9 Hypotension, unspecified; Z68.20 Body mass index [BMI] 20.0-20.9, adult; Z79.899 Other long term (current) drug therapy; Z93.4 Other artificial openings of gastrointestinal tract status
CPT/HCPCS: 36415; 71045; 80048; 80053; 81001; 81003; 82043; 82436; 83036; 83690; 83735; 84100; 84155; 84300; 84484; 85025; 93005; 99291-25

== ENCOUNTER 2018-09-03 15:55 | Inpatient (IN) | payer MEDICAID ==
[2018-09-03 20:14] LABS: ADD MAN DIFF? NO
[2018-09-03 20:18] LABS: WHITE BLOOD COUNT 12.2 10^3/ul (4.8-10.8)
[2018-09-03 20:18] LABS: BASOPHILS % 0.3 % (0.0-2.0); HEMATOCRIT 27.4 % (37.0-47.0); HEMOGLOBIN 8.7 g/dl (12.0-16.0); LYMPHOCYTES # 1.9 10^3/ul (0.8-2.9); LYMPHOCYTES % 15.2 % (15.0-51.0); MEAN CORPUSCULAR HEMOGLOBIN 25.7 pg (29.0-33.0); MEAN CORPUSCULAR HGB CONC 31.8 g/dl (32.0-37.0); MEAN CORPUSCULAR VOLUME 81.1 fl (82.0-101.0); MEAN PLATELET VOLUME 9.6 fl (7.4-10.4); MONOCYTES % 8.1 % (0.0-11.0); NEUTROPHIL # 9.3 10^3/ul (1.6-7.5); NEUTROPHILS % 76.1 % (39.0-77.0); PLATELET COUNT 512 10^3/UL (140-415); RED BLOOD COUNT 3.38 10^6/ul (4.20-5.40); RED CELL DISTRIBUTION WIDTH 16.3 % (11.5-14.5)
[2018-09-03 20:29] LABS: ADD UMIC NO; UR ASCORBIC ACID 40 mg/dL (NEGATIVE); UR BILIRUBIN (Dip) NEGATIVE (NEGATIVE); UR BLOOD (Dip) NEGATIVE (NEGATIVE); UR CLARITY CLEAR (CLEAR); UR COLOR YELLOW (YELLOW); UR GLUCOSE (Dip) NEGATIVE (NEGATIVE); UR KETONES (Dip) NEGATIVE (NEGATIVE); UR LEUKOCYTE ESTERASE (Dip) NEGATIVE Leu/ul (NEGATIVE); UR NITRITE (Dip) NEGATIVE (NEGATIVE); UR SPECIFIC GRAVITY (Dip) 1.014 (1.003-1.030); UR TOTAL PROTEIN (Dip) NEGATIVE (NEGATIVE); UR UROBILINOGEN (Dip) NEGATIVE (NEGATIVE)
[2018-09-03] MEDS: ONDANSETRON 4 MG INJ IV (20:34)
[2018-09-03] MEDS: SODIUM CHLORIDE 0.9% 1L BAG IV* (20:34)
[2018-09-03] MEDS: PIPER-TAZO 3.375 GM IV (PMX) 100 ML IVPB (20:34)
[2018-09-03 20:36] LABS: ALANINE AMINOTRANSFERASE 29 IU/L (13-69); ALBUMIN 3.9 g/dl (3.3-4.9); ALBUMIN/GLOBULIN RATIO 0.97; ALKALINE PHOSPHATASE 117 IU/L (42-121); ASPARTATE AMINO TRANSFERASE 45 IU/L (15-46); BILIRUBIN,INDIRECT 0.1 mg/dl (0-1.1); BILIRUBIN,TOTAL 0.1 mg/dl (0.2-1.3); BLOOD UREA NITROGEN 96 mg/dl (7-20); CALCIUM 9.5 mg/dl (8.4-10.2); CHLORIDE 69 mmol/L (97-110); CREATININE 0.96 mg/dl (0.44-1.00); Estimated GFR > 60 mL/min (>60); GLUCOSE 115 mg/dl (70-220); SODIUM 137 mmol/L (135-144); TOTAL PROTEIN 7.9 g/dl (6.1-8.1)
[2018-09-03 20:37] LABS: INR 0.85; PROTIME 11.7 Sec (11.9-14.9); PT RATIO 0.9
[2018-09-03 20:38] LABS: PARTIAL THROMBOPLASTIN TIME 32.6 Sec (23.0-35.0)
[2018-09-03 20:46] LABS: TROPONIN-I < 0.012 ng/ml (0.000-0.120)
[2018-09-03 20:51] LABS: ANION GAP 13 (5-13)
[2018-09-03 20:52] LABS: CARBON DIOXIDE 55 mmol/L (21-31); POTASSIUM 2.4 mmol/L (3.5-5.1)
[2018-09-03] MEDS: morphine 4 MG/ML VIAL IV (21:24)
[2018-09-03 21:58] LABS: LACTIC ACID 1.7 mmol/L (0.5-2.0)
[2018-09-03] MEDS: VANCOMYCIN 1 GM (PMX) 250 ML IVPB (22:23)
[2018-09-03] MEDS: POTASSIUM CHLORIDE 100 ML IVPB ×2 (23:00→23:37)
[2018-09-03] MEDS: 1/2 NS + KCL 20 MEQ 1,000 ML IV (23:50)
[2018-09-04] MEDS ORDERED: ACETAMINOPHEN 325 MG TAB PO
[2018-09-04] MEDS ORDERED: oxyCODONE 15 MG TAB PO
[2018-09-04] MEDS ORDERED: NACL 0.9% 3 ML SYG IV
[2018-09-04] MEDS ORDERED: HYDROCODONE/APAP (5/325) TAB PO
[2018-09-04] MEDS ORDERED: ALBUTEROL/IPRATROPIUM (NEB) 3 ML AMP HHN
[2018-09-04] MEDS: ONDANSETRON 4 MG INJ IV ×3 (01:31→13:26)
[2018-09-04] MEDS: HYDROCODONE/APAP (5/325) TAB PO ×3 (01:31→20:20)
[2018-09-04] MEDS: MAGNESIUM SULFATE 2 GM/50 ML 50 ML IVPB (02:02)
[2018-09-04 07:40] LABS: ADD MAN DIFF? NO
[2018-09-04 07:46] LABS: WHITE BLOOD COUNT 9.3 10^3/ul (4.8-10.8)
[2018-09-04 07:46] LABS: BASOPHIL # 0.1 10^3/ul (0.0-0.1); BASOPHILS % 0.6 % (0.0-2.0); HEMOGLOBIN 7.2 g/dl (12.0-16.0); LYMPHOCYTES # 2.7 10^3/ul (0.8-2.9); LYMPHOCYTES % 28.8 % (15.0-51.0); MEAN CORPUSCULAR HEMOGLOBIN 26.1 pg (29.0-33.0); MEAN CORPUSCULAR HGB CONC 31.3 g/dl (32.0-37.0); MEAN CORPUSCULAR VOLUME 83.3 fl (82.0-101.0); MEAN PLATELET VOLUME 10.1 fl (7.4-10.4); MONOCYTE # 0.9 10^3/ul (0.3-0.9); MONOCYTES % 9.6 % (0.0-11.0); NEUTROPHIL # 5.7 10^3/ul (1.6-7.5); NEUTROPHILS % 60.8 % (39.0-77.0); PLATELET COUNT 399 10^3/UL (140-415); RED BLOOD COUNT 2.76 10^6/ul (4.20-5.40); RED CELL DISTRIBUTION WIDTH 16.5 % (11.5-14.5)
[2018-09-04 08:13] LABS: ALANINE AMINOTRANSFERASE 23 IU/L (13-69); ALBUMIN 3.2 g/dl (3.3-4.9); ALKALINE PHOSPHATASE 91 IU/L (42-121); ASPARTATE AMINO TRANSFERASE 36 IU/L (15-46); BLOOD UREA NITROGEN 62 mg/dl (7-20); CALCIUM 9.1 mg/dl (8.4-10.2); CHLORIDE 85 mmol/L (97-110); CREATININE 0.81 mg/dl (0.44-1.00); Estimated GFR > 60 mL/min (>60); GLUCOSE 97 mg/dl (70-220); MAGNESIUM 3.6 mg/dl (1.7-2.5); SODIUM 140 mmol/L (135-144); TOTAL PROTEIN 7.2 g/dl (6.1-8.1)
[2018-09-04 08:20] LABS: ANION GAP 7 (5-13)
[2018-09-04 08:26] LABS: CARBON DIOXIDE 48 mmol/L (21-31); POTASSIUM 2.7 mmol/L (3.5-5.1)
[2018-09-04] MEDS: FAMOTIDINE 20 MG INJ IV (08:39)
[2018-09-04] MEDS: 1/2 NS + KCL 20 MEQ 1,000 ML IV ×2 (09:50→15:04)
[2018-09-04] MEDS: POTASSIUM CHLORIDE (SR) 20 MEQ TAB PO (13:14)
[2018-09-04] MEDS: oxyCODONE (20 MG/ML PO SYG) GTB ×3 (13:15→21:41)
[2018-09-04] MEDS: CEFTRIAXONE 2 GM/50 ML (PMX) 50 ML IVPB (15:03)
[2018-09-04] MEDS: ACETAMINOPHEN 650MG/20.3ML CUP NGT (15:50)
[2018-09-04] MEDS: DIPHENHYDRAMINE 2.5 MG/ML 5ML CUP PO (15:50)
[2018-09-04 16:34] LABS: IMMEDIATE SPIN CROSSMATCH 1 1
[2018-09-04] MEDS: FAMOTIDINE 20 MG TAB PO (20:19)
[2018-09-04 21:22] LABS: BLOOD UREA NITROGEN 30 mg/dl (7-20); CALCIUM 8.8 mg/dl (8.4-10.2); CHLORIDE 96 mmol/L (97-110); CREATININE 0.63 mg/dl (0.44-1.00); Estimated GFR > 60 mL/min (>60); GLUCOSE 106 mg/dl (70-220); SODIUM 140 mmol/L (135-144)
[2018-09-04 21:29] LABS: ANION GAP 5 (5-13); CARBON DIOXIDE 39 mmol/L (21-31)
[2018-09-04 21:32] LABS: POTASSIUM 2.8 mmol/L (3.5-5.1)
[2018-09-04] MEDS: POTASSIUM CHLORIDE 50 ML IVPB (23:44)
[2018-09-04] MEDS: oxyCODONE 5 MG TAB PO (23:54)
[2018-09-05] MEDS: POTASSIUM CHLORIDE 50 ML IVPB ×6 (00:28→18:17)
[2018-09-05] MEDS: HYDROCODONE/APAP (5/325) TAB PO ×2 (03:24→18:14)
[2018-09-05] MEDS: 1/2 NS + KCL 20 MEQ 1,000 ML IV ×3 (05:24→23:39)
[2018-09-05] MEDS: ONDANSETRON 4 MG INJ IV ×2 (05:33→22:33)
[2018-09-05] MEDS: oxyCODONE (20 MG/ML PO SYG) GTB ×5 (05:34→23:47)
[2018-09-05 05:53] LABS: ADD MAN DIFF? NO
[2018-09-05 06:02] LABS: BASOPHILS % 0.4 % (0.0-2.0); EOSINOPHILS # 0.1 10^3/ul (0.0-0.5); EOSINOPHILS % 0.9 % (0.0-7.0); HEMATOCRIT 26.1 % (37.0-47.0); HEMOGLOBIN 8.2 g/dl (12.0-16.0); LYMPHOCYTES # 2.2 10^3/ul (0.8-2.9); LYMPHOCYTES % 22.3 % (15.0-51.0); MEAN CORPUSCULAR HEMOGLOBIN 26.5 pg (29.0-33.0); MEAN CORPUSCULAR HGB CONC 31.4 g/dl (32.0-37.0); MEAN CORPUSCULAR VOLUME 84.5 fl (82.0-101.0); MEAN PLATELET VOLUME 10.1 fl (7.4-10.4); MONOCYTES % 10.1 % (0.0-11.0); NEUTROPHIL # 6.4 10^3/ul (1.6-7.5); PLATELET COUNT 368 10^3/UL (140-415); RED BLOOD COUNT 3.09 10^6/ul (4.20-5.40); RED CELL DISTRIBUTION WIDTH 15.9 % (11.5-14.5)
[2018-09-05 06:02] LABS: WHITE BLOOD COUNT 9.8 10^3/ul (4.8-10.8)
[2018-09-05 06:38] LABS: ANION GAP 3 (5-13); BLOOD UREA NITROGEN 24 mg/dl (7-20); CALCIUM 8.9 mg/dl (8.4-10.2); CARBON DIOXIDE 37 mmol/L (21-31); CHLORIDE 100 mmol/L (97-110); CREATININE 0.58 mg/dl (0.44-1.00); Estimated GFR > 60 mL/min (>60); GLUCOSE 112 mg/dl (70-220); POTASSIUM 3.1 mmol/L (3.5-5.1); SODIUM 140 mmol/L (135-144)
[2018-09-05] MEDS: FAMOTIDINE 20 MG TAB PO ×2 (09:14→21:50)
[2018-09-05] MEDS ORDERED: morphine (ER) 15 MG TAB PO ×2 (11:30→13:00)
[2018-09-05] MEDS: morphine LIQ (10 MG/5 ML) CUP PO ×2 (13:19→21:50)
[2018-09-05] MEDS: CEFTRIAXONE 2 GM/50 ML (PMX) 50 ML IVPB (14:07)
[2018-09-06] MEDS: 1/2 NS + KCL 20 MEQ 1,000 ML IV ×2 (01:50→10:59)
[2018-09-06] MEDS: oxyCODONE (20 MG/ML PO SYG) GTB ×2 (04:11→15:13)
[2018-09-06] MEDS: oxyCODONE 5 MG TAB PO ×2 (06:45→10:59)
[2018-09-06 06:48] LABS: ADD MAN DIFF? NO
[2018-09-06 06:55] LABS: WHITE BLOOD COUNT 11.6 10^3/ul (4.8-10.8)
[2018-09-06 06:55] LABS: BASOPHILS % 0.3 % (0.0-2.0); HEMATOCRIT 28.6 % (37.0-47.0); HEMOGLOBIN 9.1 g/dl (12.0-16.0); LYMPHOCYTES # 2.8 10^3/ul (0.8-2.9); LYMPHOCYTES % 24.2 % (15.0-51.0); MEAN CORPUSCULAR HEMOGLOBIN 26.8 pg (29.0-33.0); MEAN CORPUSCULAR HGB CONC 31.8 g/dl (32.0-37.0); MEAN CORPUSCULAR VOLUME 84.1 fl (82.0-101.0); MEAN PLATELET VOLUME 9.9 fl (7.4-10.4); MONOCYTE # 0.9 10^3/ul (0.3-0.9); MONOCYTES % 7.8 % (0.0-11.0); NEUTROPHIL # 7.8 10^3/ul (1.6-7.5); NEUTROPHILS % 67.4 % (39.0-77.0); PLATELET COUNT 352 10^3/UL (140-415); RED CELL DISTRIBUTION WIDTH 16.2 % (11.5-14.5)
[2018-09-06 07:17] LABS: ANION GAP 2 (5-13); BLOOD UREA NITROGEN 14 mg/dl (7-20); CALCIUM 9.2 mg/dl (8.4-10.2); CARBON DIOXIDE 32 mmol/L (21-31); CHLORIDE 102 mmol/L (97-110); CREATININE 0.49 mg/dl (0.44-1.00); Estimated GFR > 60 mL/min (>60); GLUCOSE 107 mg/dl (70-220); POTASSIUM 4.7 mmol/L (3.5-5.1); SODIUM 136 mmol/L (135-144)
[2018-09-06 07:50] LABS: MAGNESIUM 1.8 mg/dl (1.7-2.5)
[2018-09-06 07:50] LABS: PHOSPHORUS 3.7 mg/dl (2.5-4.9)
[2018-09-06] MEDS: ONDANSETRON 4 MG INJ IV (08:37)
[2018-09-06] MEDS: FAMOTIDINE 20 MG TAB PO (08:38)
[2018-09-06] MEDS: morphine LIQ (10 MG/5 ML) CUP PO ×2 (08:38→12:58)
[2018-09-06] MEDS: CEFTRIAXONE 2 GM/50 ML (PMX) 50 ML IVPB (12:57)
[2018-09-06] MEDS: HEPARIN (100 UNITS/ML) 5 ML SYG CATHETER (15:06)
== END 2018-09-06 15:23 | disposition home or self-care (01) | DRG 375 ==
LOC: TEL 21:19 → E/R 15:55 → TEL 09-04 15:42
DX: C78.6 Secondary malignant neoplasm of retroperitoneum and peritoneum (principal); C16.9 Malignant neoplasm of stomach, unspecified; E87.3 Alkalosis; K31.1 Adult hypertrophic pyloric stenosis; N39.0 Urinary tract infection, site not specified; R53.1 Weakness; E87.6 Hypokalemia; E86.0 Dehydration; Z93.1 Gastrostomy status; D64.9 Anemia, unspecified; B96.1 Klebsiella pneumoniae [K. pneumoniae] as the cause of diseases classified elsewhere; B95.2 Enterococcus as the cause of diseases classified elsewhere; B96.89 Other specified bacterial agents as the cause of diseases classified elsewhere
CPT/HCPCS: 36415; 36430; 71045; 80048; 80053; 81003; 83605; 83735; 84100; 84484; 85025; 85610; 85730; 86850; 86900; 86901; 86920; 87040; 87045; 87086; 87400; 92610; 93005; 96374; 96375; 97163; 99291-25

== ENCOUNTER 2018-09-18 09:21 | Inpatient (IN) | payer MEDICAID ==
[2018-09-18 10:12] LABS: ADD MAN DIFF? NO
[2018-09-18 10:17] LABS: ABNORMAL IP MESSAGE 1; BASOPHILS % 0.1 % (0.0-2.0); HEMATOCRIT 14.4 % (37.0-47.0); LYMPHOCYTES % 23.9 % (15.0-51.0); MEAN CORPUSCULAR HEMOGLOBIN 24.2 pg (29.0-33.0); MEAN CORPUSCULAR HGB CONC 29.9 g/dl (32.0-37.0); MEAN CORPUSCULAR VOLUME 80.9 fl (82.0-101.0); MEAN PLATELET VOLUME 10.3 fl (7.4-10.4); MONOCYTE # 0.4 10^3/ul (0.3-0.9); NEUTROPHILS % 70.6 % (39.0-77.0); NUCLEATED RED BLOOD CELLS% 0.5 /100WBC (0.0-0.0); PLATELET COUNT 286 10^3/UL (140-415); RED BLOOD COUNT 1.78 10^6/ul (4.20-5.40); RED CELL DISTRIBUTION WIDTH 17.2 % (11.5-14.5)
[2018-09-18 10:17] LABS: WHITE BLOOD COUNT 8.5 10^3/ul (4.8-10.8)
[2018-09-18 10:18] LABS: POSITIVE DIFF @See below
[2018-09-18] MEDS: SOD CHLORIDE 0.9% 1,000 ML IV ×2 (10:19→14:04)
[2018-09-18 10:22] LABS: HEMOGLOBIN 4.3 g/dl (12.0-16.0)
[2018-09-18 10:39] LABS: ALANINE AMINOTRANSFERASE 17 IU/L (13-69); ALBUMIN 2.8 g/dl (3.3-4.9); ALBUMIN/GLOBULIN RATIO 0.87; ALKALINE PHOSPHATASE 55 IU/L (42-121); ANION GAP 8 (5-13); ASPARTATE AMINO TRANSFERASE 30 IU/L (15-46); BILIRUBIN,INDIRECT 0.1 mg/dl (0-1.1); BILIRUBIN,TOTAL 0.1 mg/dl (0.2-1.3); BLOOD UREA NITROGEN 26 mg/dl (7-20); CALCIUM 7.9 mg/dl (8.4-10.2); CARBON DIOXIDE 30 mmol/L (21-31); CHLORIDE 97 mmol/L (97-110); CREATININE 0.52 mg/dl (0.44-1.00); Estimated GFR > 60 mL/min (>60); GLUCOSE 89 mg/dl (70-220); LIPASE 56 U/L (23-300); POTASSIUM 3.1 mmol/L (3.5-5.1); SODIUM 135 mmol/L (135-144)
[2018-09-18 10:56] LABS: TROPONIN-I < 0.012 ng/ml (0.000-0.120)
[2018-09-18 11:50] LABS: IMMEDIATE SPIN CROSSMATCH 1 2
[2018-09-18 12:31] LABS: ANISOCYTOSIS 2+ (0-0); BAND NEUTROPHILS % (M) 1 % (0-4); GIANT THROMBO% (M) 2 % (0-0); HYPOCHROMASIA 3+ (0-0); LYMPHOCYTES #M 1.7 10^3/ul (0.8-2.9); LYMPHOCYTES % (M) 20 % (15-51); MICROCYTOSIS 2+ (0-0); PLATELET ESTIMATE NORMAL; POLYCHROMASIA 2+ (0-0); REACTIVE LYMPHOCYTES #M 0.1 10^3/ul (0.0-0.0); REACTIVE LYMPHOCYTES% (M) 2 % (0-0); SEG NEUT #M 6.5 10^3/ul (1.6-7.5); SEGMENTED NEUTROPHILS (M) % 77 % (39-77); SMUDGE%M 5 % (0-0)
[2018-09-18] MEDS: POTASSIUM CHLORIDE (SR) 20 MEQ TAB PO (12:59)
[2018-09-18] MEDS ORDERED: LORAZEPAM 2 MG INJ IV (13:00)
[2018-09-18] MEDS ORDERED: oxyCODONE 15 MG TAB PO (13:00)
[2018-09-18] MEDS: morphine LIQ (10 MG/5 ML) CUP PO ×2 (13:35→20:58)
[2018-09-18] MEDS: POTASSIUM CHLORIDE 20 MEQ POWDER FOR ORAL SOLN PO ×2 (13:35→18:09)
[2018-09-18] MEDS: oxyCODONE 5 MG TAB PO ×2 (18:09→21:59)
[2018-09-18] MEDS: ONDANSETRON 4 MG INJ IV (19:23)
[2018-09-18] MEDS ORDERED: DOCUSATE SODIUM 100 MG CAP PO (21:00)
[2018-09-18] MEDS: DOCUSATE SODIUM 10 MG/ML (10ML CUP) GTB (23:15)
[2018-09-19] MEDS: oxyCODONE 15 MG TAB PO ×3 (02:48→11:22)
[2018-09-19] MEDS ORDERED: PANTOPRAZOLE (EC) 40 MG TAB PO (06:00)
[2018-09-19] MEDS: ONDANSETRON 4 MG INJ IV (06:10)
[2018-09-19 06:25] LABS: ADD MAN DIFF? NO
[2018-09-19 06:33] LABS: WHITE BLOOD COUNT 7.4 10^3/ul (4.8-10.8)
[2018-09-19 06:33] LABS: BASOPHILS % 0.4 % (0.0-2.0); EOSINOPHILS % 0.3 % (0.0-7.0); HEMATOCRIT 28.7 % (37.0-47.0); HEMOGLOBIN 9.2 g/dl (12.0-16.0); LYMPHOCYTES # 1.9 10^3/ul (0.8-2.9); LYMPHOCYTES % 25.3 % (15.0-51.0); MEAN CORPUSCULAR HEMOGLOBIN 27.9 pg (29.0-33.0); MEAN CORPUSCULAR HGB CONC 32.1 g/dl (32.0-37.0); MEAN PLATELET VOLUME 10.7 fl (7.4-10.4); MONOCYTE # 0.3 10^3/ul (0.3-0.9); MONOCYTES % 3.9 % (0.0-11.0); NEUTROPHIL # 5.1 10^3/ul (1.6-7.5); NEUTROPHILS % 69.7 % (39.0-77.0); NUCLEATED RED BLOOD CELLS # 0.1 10^3/ul (0.0-0.0); NUCLEATED RED BLOOD CELLS% 0.7 /100WBC (0.0-0.0); PLATELET COUNT 268 10^3/UL (140-415); RED CELL DISTRIBUTION WIDTH 16.5 % (11.5-14.5)
[2018-09-19 06:54] LABS: ANION GAP 7 (5-13); BLOOD UREA NITROGEN 16 mg/dl (7-20); CALCIUM 8.4 mg/dl (8.4-10.2); CARBON DIOXIDE 29 mmol/L (21-31); CHLORIDE 105 mmol/L (97-110); CREATININE 0.55 mg/dl (0.44-1.00); Estimated GFR > 60 mL/min (>60); GLUCOSE 100 mg/dl (70-220); MAGNESIUM 2.1 mg/dl (1.7-2.5); POTASSIUM 4.3 mmol/L (3.5-5.1); SODIUM 141 mmol/L (135-144)
[2018-09-19] MEDS: LANSOPRAZOLE 15 MG CAP GTB (08:50)
[2018-09-19] MEDS: POLYETHYLENE GLYCOL 17 GM PACKET NGT (08:51)
[2018-09-19] MEDS: DOCUSATE SODIUM 10 MG/ML (10ML CUP) GTB (08:51)
[2018-09-19] MEDS: morphine LIQ (10 MG/5 ML) CUP PO (08:52)
[2018-09-19] MEDS: LANSOPRAZOLE ORAL SUSP 3 MG/ML (POSYG) GTB (11:30)
[2018-09-19 12:19] LABS: FERRITIN 18.8 ng/ml (6.2-137.0)
[2018-09-19 12:31] LABS: IRON 64 ug/dl (35-150)
[2018-09-19 12:41] LABS: % IRON SATURATION 19 % SAT (22-52); TOTAL IRON BINDING CAPACITY 344 ug/dl (241-421)
[2018-09-20] MEDS ORDERED: LANSOPRAZOLE ORAL SUSP 3 MG/ML (POSYG) GTB (06:00)
== END 2018-09-19 12:00 | disposition home or self-care (01) | DRG 375 ==
LOC: E/R 09:21 → TEL 10:56
PROC: 30233N1 Transfusion of Nonautologous Red Blood Cells into Peripheral Vein, Percutaneous Approach (ICD-10-PCS; principal; 2018-09-18)
DX: C16.9 Malignant neoplasm of stomach, unspecified (principal); C78.6 Secondary malignant neoplasm of retroperitoneum and peritoneum; D64.81 Anemia due to antineoplastic chemotherapy; E88.09 Other disorders of plasma-protein metabolism, not elsewhere classified; Z93.1 Gastrostomy status; E86.0 Dehydration; D63.0 Anemia in neoplastic disease; E87.6 Hypokalemia; G89.3 Neoplasm related pain (acute) (chronic)
CPT/HCPCS: 36415; 36430; 80048; 80053; 82728; 83540; 83690; 83735; 84484; 85025; 86850; 86900; 86901; 86920; 93005; 99285-25

== ENCOUNTER 2018-12-19 11:03 | Emergency (ER) | payer MEDICAID ==
[2018-12-19] MEDS: SOD CHLORIDE 0.9% 1,000 ML IV (11:47)
[2018-12-19] MEDS: ONDANSETRON 4 MG INJ IV (11:48)
[2018-12-19] MEDS: HYDROmorphONE 1 MG/ML SYG IV ×2 (11:48→13:32)
[2018-12-19 11:55] LABS: ADD MAN DIFF? NO
[2018-12-19 12:05] LABS: BASOPHIL # 0.1 10^3/ul (0.0-0.1); BASOPHILS % 1.1 % (0.0-2.0); EOSINOPHILS # 0.1 10^3/ul (0.0-0.5); EOSINOPHILS % 1.5 % (0.0-7.0); HEMATOCRIT 33.4 % (37.0-47.0); HEMOGLOBIN 10.6 g/dl (12.0-16.0); LYMPHOCYTES # 1.8 10^3/ul (0.8-2.9); LYMPHOCYTES % 37.7 % (15.0-51.0); MEAN CORPUSCULAR HEMOGLOBIN 28.8 pg (29.0-33.0); MEAN CORPUSCULAR HGB CONC 31.7 g/dl (32.0-37.0); MEAN CORPUSCULAR VOLUME 90.8 fl (82.0-101.0); MEAN PLATELET VOLUME 10.8 fl (7.4-10.4); MONOCYTE # 0.5 10^3/ul (0.3-0.9); MONOCYTES % 10.9 % (0.0-11.0); NEUTROPHIL # 2.3 10^3/ul (1.6-7.5); NEUTROPHILS % 48.4 % (39.0-77.0); PLATELET COUNT 460 10^3/UL (140-415); RED BLOOD COUNT 3.68 10^6/ul (4.20-5.40); RED CELL DISTRIBUTION WIDTH 19.2 % (11.5-14.5)
[2018-12-19 12:05] LABS: WHITE BLOOD COUNT 4.7 10^3/ul (4.8-10.8)
[2018-12-19 12:18] LABS: ALANINE AMINOTRANSFERASE 17 IU/L (13-69); ALBUMIN 3.8 g/dl (3.3-4.9); ALBUMIN/GLOBULIN RATIO 1.05; ALKALINE PHOSPHATASE 108 IU/L (42-121); ANION GAP 12 (5-13); ASPARTATE AMINO TRANSFERASE 26 IU/L (15-46); BILIRUBIN,INDIRECT 0.4 mg/dl (0-1.1); BILIRUBIN,TOTAL 0.4 mg/dl (0.2-1.3); BLOOD UREA NITROGEN 17 mg/dl (7-20); CALCIUM 9.4 mg/dl (8.4-10.2); CARBON DIOXIDE 30 mmol/L (21-31); CHLORIDE 98 mmol/L (97-110); CREATININE 0.56 mg/dl (0.44-1.00); Estimated GFR > 60 mL/min (>60); GLUCOSE 116 mg/dl (70-220); LIPASE 43 U/L (23-300); POTASSIUM 3.5 mmol/L (3.5-5.1); SODIUM 140 mmol/L (135-144); TOTAL PROTEIN 7.4 g/dl (6.1-8.1)
[2018-12-19] MEDS: IOHEXOL 300MG/ML 150 ML BTL (12:48)
[2018-12-19] MEDS: SOD CHLORIDE 0.9% 100 ML (12:48)
== END 2018-12-19 14:00 | disposition home or self-care (01) ==
LOC: E/R 11:03
DX: R07.89 Other chest pain (principal); Z85.028 Personal history of other malignant neoplasm of stomach
CPT/HCPCS: 36415; 74177; 80053; 83690; 85025; 96374; 96375; 96376; 99285-25

== ENCOUNTER 2019-02-27 02:50 | Inpatient (IN) | payer MEDICAID ==
[2019-02-27] MEDS: SODIUM CHLORIDE 0.9% 1L BAG IV* (03:19)
[2019-02-27] MEDS: CEFEPIME 2GM/50 ML (PMX) 50 ML IVPB (03:19)
[2019-02-27] MEDS ORDERED: ONDANSETRON 4 MG INJ (03:26)
[2019-02-27] MEDS: morphine 4 MG/ML VIAL IV (03:29)
[2019-02-27] MEDS: ACETAMINOPHEN 325 MG TAB PO ×3 (03:29→15:23)
[2019-02-27] MEDS: ONDANSETRON 4 MG INJ IV (03:29)
[2019-02-27] MEDS ORDERED: ACETAMINOPHEN 325 MG TAB PO (03:30)
[2019-02-27] MEDS ORDERED: ONDANSETRON 4 MG INJ IV (03:30)
[2019-02-27] MEDS: ACETAMINOPHEN 650MG/20.3ML CUP PO (03:44)
[2019-02-27 03:45] LABS: ALANINE AMINOTRANSFERASE 21 IU/L (13-69); ALBUMIN 3.1 g/dl (3.3-4.9); ALBUMIN/GLOBULIN RATIO 0.88; ALKALINE PHOSPHATASE 91 IU/L (42-121); ANION GAP 8 (5-13); ASPARTATE AMINO TRANSFERASE 41 IU/L (15-46); BILIRUBIN,INDIRECT 1.1 mg/dl (0-1.1); BILIRUBIN,TOTAL 1.1 mg/dl (0.2-1.3); BLOOD UREA NITROGEN 38 mg/dl (7-20); CALCIUM 7.5 mg/dl (8.4-10.2); CARBON DIOXIDE 40 mmol/L (21-31); CHLORIDE 85 mmol/L (97-110); CREATININE 0.86 mg/dl (0.44-1.00); Estimated GFR > 60 mL/min (>60); GLUCOSE 118 mg/dl (70-220); SODIUM 133 mmol/L (135-144); TOTAL PROTEIN 6.6 g/dl (6.1-8.1)
[2019-02-27 03:47] LABS: INR 0.92; PROTIME 12.5 Sec (11.9-14.9)
[2019-02-27 03:48] LABS: PARTIAL THROMBOPLASTIN TIME 28.4 Sec (23.0-35.0)
[2019-02-27 03:51] LABS: POTASSIUM 2.8 mmol/L (3.5-5.1)
[2019-02-27] MEDS: VANCOMYCIN 1 GM (PMX) 250 ML IVPB (03:54)
[2019-02-27 03:55] LABS: TROPONIN-I < 0.012 ng/ml (0.000-0.120)
[2019-02-27 04:01] LABS: ABNORMAL IP MESSAGE 1; HEMATOCRIT 21.4 % (37.0-47.0); MEAN CORPUSCULAR HEMOGLOBIN 29.6 pg (29.0-33.0); MEAN CORPUSCULAR HGB CONC 32.2 g/dl (32.0-37.0); MEAN CORPUSCULAR VOLUME 91.8 fl (82.0-101.0); MEAN PLATELET VOLUME 11.2 fl (7.4-10.4); NUCLEATED RED BLOOD CELLS% 2.3 /100WBC (0.0-0.0); PLATELET COUNT 332 10^3/UL (140-415); RED BLOOD COUNT 2.33 10^6/ul (4.20-5.40); RED CELL DISTRIBUTION WIDTH 21.9 % (11.5-14.5)
[2019-02-27 04:01] LABS: WHITE BLOOD COUNT 5.5 10^3/ul (4.8-10.8)
[2019-02-27 04:03] LABS: HEMOGLOBIN 6.9 g/dl (12.0-16.0)
[2019-02-27 04:04] LABS: ADD MAN DIFF? YES; POSITIVE DIFF @See below
[2019-02-27] MEDS ORDERED: SOD CHLORIDE 0.9% 1,000 ML IV (04:14)
[2019-02-27] MEDS: POTASSIUM CHLORIDE 20 MEQ POWDER FOR ORAL SOLN PO (04:18)
[2019-02-27] MEDS: METOCLOPRAMIDE 10 MG INJ IV (04:24)
[2019-02-27 04:26] LABS: ADD UMIC YES; UR ASCORBIC ACID 20 mg/dL (NEGATIVE); UR BILIRUBIN (Dip) NEGATIVE (NEGATIVE); UR BLOOD (Dip) 3+ mg/dL (NEGATIVE); UR CLARITY CLOUDY (CLEAR); UR COLOR YELLOW (YELLOW); UR GLUCOSE (Dip) NEGATIVE (NEGATIVE); UR KETONES (Dip) NEGATIVE (NEGATIVE); UR LEUKOCYTE ESTERASE (Dip) 3+ Leu/ul (NEGATIVE); UR NITRITE (Dip) NEGATIVE (NEGATIVE); UR NONSQUAMOUS EPITHELIAL CELL 1 /HPF (NONE SEEN); UR RBC 76 /HPF (0-5); UR SPECIFIC GRAVITY (Dip) 1.014 (1.003-1.030); UR SQUAMOUS EPITHELIAL CELL FEW /HPF (FEW); UR TOTAL PROTEIN (Dip) 1+ mg/dl (NEGATIVE); UR UROBILINOGEN (Dip) NEGATIVE (NEGATIVE); UR WBC > 182 /HPF (0-5)
[2019-02-27] MEDS ORDERED: VANCOMYCIN IV PER PHARMACY XX (04:30)
[2019-02-27] MEDS ORDERED: NACL 0.9% 3 ML SYG IV (04:30)
[2019-02-27] MEDS ORDERED: BISACODYL (EC) 5 MG TAB PO (04:30)
[2019-02-27] MEDS ORDERED: DOCUSATE SODIUM 100 MG CAP PO (04:30)
[2019-02-27 05:30] LABS: ANISOCYTOSIS 1+ (0-0); BAND NEUTROPHILS #M 0.1 10^3/ul (0.0-0.6); BAND NEUTROPHILS % (M) 2 % (0-4); EOSINOPHILS % (M) 22 % (0-7); ERYTHROBLAST% (NRBC) (M) 3 % (0-0); GIANT THROMBO% (M) 9 % (0-0); LYMPHOCYTES #M 0.7 10^3/ul (0.8-2.9); LYMPHOCYTES % (M) 14 % (15-51); MONOCYTES % (M) 1 % (0-11); PLATELET ESTIMATE NORMAL; POIKILOCYTOSIS 1+ (0-0); POLYCHROMASIA 3+ (0-0); REACTIVE LYMPHOCYTES #M 0.2 10^3/ul (0.0-0.0); REACTIVE LYMPHOCYTES% (M) 4 % (0-0); SEG NEUT #M 3.1 10^3/ul (1.6-7.5); SEGMENTED NEUTROPHILS (M) % 57 % (39-77); SMUDGE%M 16 % (0-0)
[2019-02-27] MEDS: KETOROLAC 30 MG INJ IM (05:46)
[2019-02-27 05:59] LABS: LACTIC ACID 1.1 mmol/L (0.5-2.0)
[2019-02-27] MEDS: PIPER-TAZO 3.375 GM IV (PMX) 100 ML IVPB ×4 (06:00→21:05)
[2019-02-27 08:58] LABS: LACTIC ACID 1.3 mmol/L (0.5-2.0)
[2019-02-27] MEDS: HYDROCODONE/APAP (5/325) TAB PO ×2 (12:00→21:11)
[2019-02-27 12:42] LABS: ANION GAP 3 (5-13); BLOOD UREA NITROGEN 30 mg/dl (7-20); CALCIUM 6.7 mg/dl (8.4-10.2); CARBON DIOXIDE 37 mmol/L (21-31); CHLORIDE 95 mmol/L (97-110); CREATININE 0.76 mg/dl (0.44-1.00); Estimated GFR > 60 mL/min (>60); GLUCOSE 105 mg/dl (70-220); SODIUM 135 mmol/L (135-144)
[2019-02-27] MEDS: SOD CHLORIDE 0.9% 1,000 ML IV (12:45)
[2019-02-27 12:54] LABS: POTASSIUM 2.9 mmol/L (3.5-5.1)
[2019-02-27] MEDS: oxyCODONE 15 MG TAB GTB ×3 (12:54→22:26)
[2019-02-27] MEDS: POTASSIUM CHLORIDE 20 MEQ POWDER FOR ORAL SOLN PEG (14:18)
[2019-02-27] MEDS: FENTAnyl PATCH 12 MCG/HR TRANSDERM (14:39)
[2019-02-27] MEDS: DIPHENHYDRAMINE 25 MG CAP PO (15:23)
[2019-02-27] MEDS: SOD CHLORIDE 0.9% 0 ML IV (16:44)
[2019-02-27] MEDS: POTASSIUM CHLORIDE 30 MEQ in SOD CHLORIDE 0.9% 1,000 ML IV ×2 (16:44→18:09)
[2019-02-27] MEDS: NYSTATIN 30 GM POWDER BTL TOP ×2 (16:44→21:06)
[2019-02-27] MEDS ORDERED: oxyCODONE 15 MG TAB GTB (19:30)
[2019-02-27] MEDS ORDERED: POLYETHYLENE GLYCOL 17 GM PACKET NGT (23:00)
[2019-02-27] MEDS: AL HYDROX/MG HYDROX/SIMETH 30 ML CUP GTB (23:31)
[2019-02-27] MEDS: POTASSIUM CHLORIDE 100 ML IVPB (23:31)
[2019-02-28] MEDS: PIPER-TAZO 3.375 GM IV (PMX) 100 ML IVPB ×5 (01:49→23:51)
[2019-02-28] MEDS: POTASSIUM CHLORIDE 100 ML IVPB ×6 (02:06→14:37)
[2019-02-28] MEDS: oxyCODONE 15 MG TAB GTB ×5 (02:24→23:26)
[2019-02-28 03:25] LABS: IMMEDIATE SPIN CROSSMATCH 1 5
[2019-02-28] MEDS: ACETAMINOPHEN 325 MG TAB PO (04:03)
[2019-02-28] MEDS: VANCOMYCIN 750 MG (PMX) 250 ML IVPB (04:16)
[2019-02-28] MEDS: POTASSIUM CHLORIDE 30 MEQ in SOD CHLORIDE 0.9% 1,000 ML IV ×2 (04:18→14:41)
[2019-02-28 06:40] LABS: WHITE BLOOD COUNT 5.1 10^3/ul (4.8-10.8)
[2019-02-28 06:40] LABS: ABNORMAL IP MESSAGE 1; HEMATOCRIT 28.9 % (37.0-47.0); HEMOGLOBIN 9.7 g/dl (12.0-16.0); MEAN CORPUSCULAR HEMOGLOBIN 30.3 pg (29.0-33.0); MEAN CORPUSCULAR HGB CONC 33.6 g/dl (32.0-37.0); MEAN CORPUSCULAR VOLUME 90.3 fl (82.0-101.0); MEAN PLATELET VOLUME 11.2 fl (7.4-10.4); NUCLEATED RED BLOOD CELLS% 0.6 /100WBC (0.0-0.0); PLATELET COUNT 167 10^3/UL (140-415); RED CELL DISTRIBUTION WIDTH 17.5 % (11.5-14.5)
[2019-02-28 06:45] LABS: POSITIVE DIFF @See below
[2019-02-28 06:47] LABS: ADD MAN DIFF? YES
[2019-02-28 07:12] LABS: ALANINE AMINOTRANSFERASE 24 IU/L (13-69); ALBUMIN 2.4 g/dl (3.3-4.9); ALBUMIN/GLOBULIN RATIO 0.88; ALKALINE PHOSPHATASE 78 IU/L (42-121); ANION GAP 7 (5-13); ASPARTATE AMINO TRANSFERASE 31 IU/L (15-46); BILIRUBIN,INDIRECT 0.8 mg/dl (0-1.1); BILIRUBIN,TOTAL 0.8 mg/dl (0.2-1.3); BLOOD UREA NITROGEN 19 mg/dl (7-20); CARBON DIOXIDE 27 mmol/L (21-31); CHLORIDE 105 mmol/L (97-110); CREATININE 0.62 mg/dl (0.44-1.00); Estimated GFR > 60 mL/min (>60); GLUCOSE 133 mg/dl (70-220); MAGNESIUM 2.7 mg/dl (1.7-2.5); POTASSIUM 3.5 mmol/L (3.5-5.1); SODIUM 139 mmol/L (135-144); TOTAL PROTEIN 5.1 g/dl (6.1-8.1)
[2019-02-28 08:23] LABS: ANISOCYTOSIS 1+ (0-0); BAND NEUTROPHILS #M 1.5 10^3/ul (0.0-0.6); BAND NEUTROPHILS % (M) 30 % (0-4); GIANT THROMBO% (M) 1 % (0-0); LYMPHOCYTES #M 0.3 10^3/ul (0.8-2.9); LYMPHOCYTES % (M) 6 % (15-51); MYELOCYTES % (M) 1 % (0-0); PLATELET ESTIMATE NORMAL; POLYCHROMASIA 1+ (0-0); SEG NEUT #M 3.3 10^3/ul (1.6-7.5); SEGMENTED NEUTROPHILS (M) % 63 % (39-77); SMUDGE%M 11 % (0-0)
[2019-02-28] MEDS: NYSTATIN 30 GM POWDER BTL TOP ×2 (09:22→20:33)
[2019-02-28] MEDS: ONDANSETRON 4 MG INJ IV (10:40)
[2019-02-28] MEDS: HYDROCODONE/APAP (5/325) TAB PO (21:21)
[2019-03-01] MEDS: POTASSIUM CHLORIDE 30 MEQ in SOD CHLORIDE 0.9% 1,000 ML IV ×2 (00:36→05:54)
[2019-03-01] MEDS: oxyCODONE 15 MG TAB GTB ×3 (04:13→13:39)
[2019-03-01] MEDS: PIPER-TAZO 3.375 GM IV (PMX) 100 ML IVPB ×2 (05:54→13:46)
[2019-03-01 06:47] LABS: WHITE BLOOD COUNT 1.5 10^3/ul (4.8-10.8)
[2019-03-01 06:47] LABS: ABNORMAL IP MESSAGE 1; HEMATOCRIT 32.4 % (37.0-47.0); HEMOGLOBIN 10.7 g/dl (12.0-16.0); MEAN CORPUSCULAR HEMOGLOBIN 30.1 pg (29.0-33.0); MEAN PLATELET VOLUME 10.8 fl (7.4-10.4); PLATELET COUNT 143 10^3/UL (140-415); RED BLOOD COUNT 3.56 10^6/ul (4.20-5.40); RED CELL DISTRIBUTION WIDTH 17.7 % (11.5-14.5)
[2019-03-01 07:03] LABS: ALANINE AMINOTRANSFERASE 22 IU/L (13-69); ALBUMIN 2.3 g/dl (3.3-4.9); ALBUMIN/GLOBULIN RATIO 0.82; ALKALINE PHOSPHATASE 84 IU/L (42-121); ANION GAP 3 (5-13); ASPARTATE AMINO TRANSFERASE 34 IU/L (15-46); BILIRUBIN,INDIRECT 0.8 mg/dl (0-1.1); BILIRUBIN,TOTAL 0.8 mg/dl (0.2-1.3); BLOOD UREA NITROGEN 13 mg/dl (7-20); CALCIUM 7.1 mg/dl (8.4-10.2); CARBON DIOXIDE 26 mmol/L (21-31); CHLORIDE 110 mmol/L (97-110); CREATININE 0.54 mg/dl (0.44-1.00); Estimated GFR > 60 mL/min (>60); GLUCOSE 121 mg/dl (70-220); POSITIVE DIFF @See below; SODIUM 139 mmol/L (135-144); TOTAL PROTEIN 5.1 g/dl (6.1-8.1)
[2019-03-01 07:06] LABS: ADD MAN DIFF? YES
[2019-03-01] MEDS: NYSTATIN 30 GM POWDER BTL TOP (08:41)
[2019-03-01 09:36] LABS: ANISOCYTOSIS 1+ (0-0); BAND NEUTROPHILS #M 0.4 10^3/ul (0.0-0.6); BAND NEUTROPHILS % (M) 30 % (0-4); EOSINOPHILS % (M) 5 % (0-7); ERYTHROBLAST% (NRBC) (M) 3 % (0-0); GIANT THROMBO% (M) 6 % (0-0); LYMPHOCYTES % (M) 3 % (15-51); MONOCYTES % (M) 3 % (0-11); MYELOCYTES % (M) 1 % (0-0); PLATELET ESTIMATE NORMAL; POIKILOCYTOSIS 1+ (0-0); POLYCHROMASIA 1+ (0-0); SEG NEUT #M 0.9 10^3/ul (1.6-7.5); SEGMENTED NEUTROPHILS (M) % 58 % (39-77); SMUDGE%M 18 % (0-0)
== END 2019-03-01 17:28 | disposition home or self-care (01) | DRG 872 ==
LOC: E/R 02:50 → TEL 03:30
PROVIDERS: Family Medicine
PROC: 30233N1 Transfusion of Nonautologous Red Blood Cells into Peripheral Vein, Percutaneous Approach (ICD-10-PCS; 2019-02-27)
PROC: 30233N1 Transfusion of Nonautologous Red Blood Cells into Peripheral Vein, Percutaneous Approach (ICD-10-PCS; principal; 2019-02-28)
DX: A41.9 Sepsis, unspecified organism (principal); C16.9 Malignant neoplasm of stomach, unspecified; N39.0 Urinary tract infection, site not specified; E87.1 Hypo-osmolality and hyponatremia; K31.1 Adult hypertrophic pyloric stenosis; D63.0 Anemia in neoplastic disease; D63.8 Anemia in other chronic diseases classified elsewhere; E87.6 Hypokalemia; Z93.4 Other artificial openings of gastrointestinal tract status; Z93.1 Gastrostomy status
CPT/HCPCS: 36415; 36430; 71045; 80048; 80053; 81001; 82306; 83605; 83735; 84484; 85025; 85610; 85730; 86850; 86900; 86901; 86920; 87040-91; 87086; 93005; 96374; 99285-25

== ENCOUNTER 2019-04-05 20:56 | Inpatient (IN) | payer MEDICAID ==
[2019-04-05] MEDS: SODIUM CHLORIDE 0.9% 1L BAG IV* (21:57)
[2019-04-05 22:03] LABS: WHITE BLOOD COUNT 2.8 10^3/ul (4.8-10.8)
[2019-04-05 22:03] LABS: ABNORMAL IP MESSAGE 1; HEMATOCRIT 28.8 % (37.0-47.0); HEMOGLOBIN 9.4 g/dl (12.0-16.0); MEAN CORPUSCULAR HEMOGLOBIN 28.3 pg (29.0-33.0); MEAN CORPUSCULAR HGB CONC 32.6 g/dl (32.0-37.0); MEAN CORPUSCULAR VOLUME 86.7 fl (82.0-101.0); MEAN PLATELET VOLUME 9.9 fl (7.4-10.4); PLATELET COUNT 280 10^3/UL (140-415); RED BLOOD COUNT 3.32 10^6/ul (4.20-5.40); RED CELL DISTRIBUTION WIDTH 17.9 % (11.5-14.5)
[2019-04-05 22:08] LABS: ADD MAN DIFF? YES; POSITIVE DIFF @See below
[2019-04-05 22:22] LABS: ALANINE AMINOTRANSFERASE 23 IU/L (13-69); ALBUMIN 3.1 g/dl (3.3-4.9); ALBUMIN/GLOBULIN RATIO 0.81; ALKALINE PHOSPHATASE 120 IU/L (42-121); ASPARTATE AMINO TRANSFERASE 24 IU/L (15-46); BILIRUBIN,INDIRECT 0.6 mg/dl (0-1.1); BILIRUBIN,TOTAL 0.6 mg/dl (0.2-1.3); BLOOD UREA NITROGEN 69 mg/dl (7-20); CALCIUM 8.2 mg/dl (8.4-10.2); CHLORIDE 75 mmol/L (97-110); CREATININE 0.97 mg/dl (0.44-1.00); Estimated GFR > 60 mL/min (>60); GLUCOSE 106 mg/dl (70-220); SODIUM 131 mmol/L (135-144); TOTAL PROTEIN 6.9 g/dl (6.1-8.1)
[2019-04-05 22:32] LABS: ANION GAP 10 (5-13)
[2019-04-05 22:34] LABS: CARBON DIOXIDE 46 mmol/L (21-31); POTASSIUM 2.9 mmol/L (3.5-5.1); TROPONIN-I < 0.012 ng/ml (0.000-0.120)
[2019-04-05 22:40] LABS: INR 1.01; PROTIME 13.4 Sec (11.9-14.9)
[2019-04-05 22:41] LABS: PARTIAL THROMBOPLASTIN TIME 37.6 Sec (23.0-35.0)
[2019-04-05 22:47] LABS: ANISOCYTOSIS 1+ (0-0); BAND NEUTROPHILS #M 0.4 10^3/ul (0.0-0.6); BAND NEUTROPHILS % (M) 16 % (0-4); EOSINOPHILS % (M) 1 % (0-7); GIANT THROMBO% (M) 4 % (0-0); LYMPHOCYTES #M 0.7 10^3/ul (0.8-2.9); LYMPHOCYTES % (M) 27 % (15-51); METAMYELOCYTES #M 0.1 10^3/ul (0.0-0.0); METAMYELOCYTES %M 4 % (0-0); MICROCYTOSIS 1+ (0-0); MONOCYTE #M 0.1 10^3/ul (0.3-0.9); MONOCYTES % (M) 5 % (0-11); MYELOCYTES #M 0.1 10^3/ul (0.0-0.0); MYELOCYTES % (M) 4 % (0-0); PLATELET ESTIMATE NORMAL; POIKILOCYTOSIS 1+ (0-0); POLYCHROMASIA 3+ (0-0); REACTIVE LYMPHOCYTES% (M) 2 % (0-0); SEG NEUT #M 1.2 10^3/ul (1.6-7.5); SEGMENTED NEUTROPHILS (M) % 41 % (39-77); SMUDGE%M 7 % (0-0)
[2019-04-05 23:58] LABS: ADD UMIC NO; UR ASCORBIC ACID 40 mg/dL (NEGATIVE); UR BILIRUBIN (Dip) NEGATIVE (NEGATIVE); UR BLOOD (Dip) NEGATIVE (NEGATIVE); UR CLARITY CLEAR (CLEAR); UR COLOR YELLOW (YELLOW); UR GLUCOSE (Dip) NEGATIVE (NEGATIVE); UR KETONES (Dip) NEGATIVE (NEGATIVE); UR LEUKOCYTE ESTERASE (Dip) NEGATIVE Leu/ul (NEGATIVE); UR NITRITE (Dip) NEGATIVE (NEGATIVE); UR SPECIFIC GRAVITY (Dip) 1.011 (1.003-1.030); UR TOTAL PROTEIN (Dip) NEGATIVE (NEGATIVE); UR UROBILINOGEN (Dip) NEGATIVE (NEGATIVE)
[2019-04-06 00:14] LABS: LACTIC ACID 1.6 mmol/L (0.5-2.0)
[2019-04-06] MEDS: PIPER-TAZO 3.375 GM IV (PMX) 100 ML IVPB ×4 (00:53→20:25)
[2019-04-06] MEDS: POTASSIUM CHLORIDE 100 ML IVPB ×3 (00:53→20:21)
[2019-04-06] MEDS: VANCOMYCIN 1 GM (PMX) 250 ML IVPB (00:54)
[2019-04-06] MEDS: SOD CHLORIDE 0.9% 1,000 ML IV ×3 (00:59→20:22)
[2019-04-06] MEDS: ACETAMINOPHEN 500 MG TAB PO (00:59)
[2019-04-06] MEDS ORDERED: ACETAMINOPHEN 325 MG TAB PO ×2 (01:00→01:30)
[2019-04-06] MEDS ORDERED: VANCOMYCIN IV PER PHARMACY XX ×2 (01:30)
[2019-04-06] MEDS ORDERED: ONDANSETRON 4 MG INJ IV (01:30)
[2019-04-06] MEDS ORDERED: VANCOMYCIN 1.25 GM/NS 250 ML 250 ML IVPB (01:30)
[2019-04-06] MEDS ORDERED: NACL 0.9% 3 ML SYG IV (01:30)
[2019-04-06] MEDS: POTASSIUM CHLORIDE 30 MEQ in SOD CHLORIDE 0.9% 1,000 ML IV ×3 (01:40→21:48)
[2019-04-06 03:54] LABS: LACTIC ACID 1.6 mmol/L (0.5-2.0)
[2019-04-06 06:21] LABS: ABNORMAL IP MESSAGE 1; HEMOGLOBIN 8.1 g/dl (12.0-16.0); MEAN CORPUSCULAR HEMOGLOBIN 28.3 pg (29.0-33.0); MEAN CORPUSCULAR HGB CONC 32.4 g/dl (32.0-37.0); MEAN CORPUSCULAR VOLUME 87.4 fl (82.0-101.0); MEAN PLATELET VOLUME 10.2 fl (7.4-10.4); PLATELET COUNT 243 10^3/UL (140-415); RED BLOOD COUNT 2.86 10^6/ul (4.20-5.40); RED CELL DISTRIBUTION WIDTH 17.8 % (11.5-14.5)
[2019-04-06 06:21] LABS: WHITE BLOOD COUNT 2.3 10^3/ul (4.8-10.8)
[2019-04-06 06:23] LABS: ADD MAN DIFF? YES; POSITIVE DIFF @See below
[2019-04-06 06:44] LABS: ALANINE AMINOTRANSFERASE 19 IU/L (13-69); ALBUMIN 2.5 g/dl (3.3-4.9); ALKALINE PHOSPHATASE 92 IU/L (42-121); ASPARTATE AMINO TRANSFERASE 21 IU/L (15-46); BILIRUBIN,INDIRECT 0.6 mg/dl (0-1.1); BILIRUBIN,TOTAL 0.6 mg/dl (0.2-1.3); BLOOD UREA NITROGEN 50 mg/dl (7-20); CALCIUM 7.6 mg/dl (8.4-10.2); CHLORIDE 89 mmol/L (97-110); CREATININE 0.66 mg/dl (0.44-1.00); Estimated GFR > 60 mL/min (>60); GLUCOSE 115 mg/dl (70-220); MAGNESIUM 2.7 mg/dl (1.7-2.5); SODIUM 134 mmol/L (135-144); TOTAL PROTEIN 5.6 g/dl (6.1-8.1)
[2019-04-06 06:55] LABS: ANION GAP 8 (5-13)
[2019-04-06 06:56] LABS: CARBON DIOXIDE 37 mmol/L (21-31)
[2019-04-06 06:59] LABS: POTASSIUM 2.8 mmol/L (3.5-5.1)
[2019-04-06 07:26] LABS: ANISOCYTOSIS 1+ (0-0); BAND NEUTROPHILS #M 0.6 10^3/ul (0.0-0.6); BAND NEUTROPHILS % (M) 29 % (0-4); BASOPHILS % (M) 2 % (0-2); EOSINOPHILS % (M) 1 % (0-7); GIANT THROMBO% (M) 4 % (0-0); LYMPHOCYTES #M 0.2 10^3/ul (0.8-2.9); LYMPHOCYTES % (M) 11 % (15-51); METAMYELOCYTES %M 3 % (0-0); MONOCYTE #M 0.1 10^3/ul (0.3-0.9); MONOCYTES % (M) 7 % (0-11); MYELOCYTES % (M) 1 % (0-0); PLATELET ESTIMATE NORMAL; POLYCHROMASIA 2+ (0-0); PROMYELOCYTES % (M) 1 % (0-0); REACTIVE LYMPHOCYTES #M 0.2 10^3/ul (0.0-0.0); REACTIVE LYMPHOCYTES% (M) 11 % (0-0); SEG NEUT #M 0.8 10^3/ul (1.6-7.5); SEGMENTED NEUTROPHILS (M) % 34 % (39-77); SMUDGE%M 40 % (0-0)
[2019-04-06] MEDS: morphine 2 MG INJ IV ×3 (09:30→20:14)
[2019-04-06] MEDS: ONDANSETRON 4 MG INJ IV ×2 (09:30→13:38)
[2019-04-06] MEDS: ENOXAPARIN 40 MG/0.4 ML SYG SC (09:42)
[2019-04-06] MEDS: MAGNESIUM SULFATE 2 GM/50 ML 50 ML IVPB (10:29)
[2019-04-06] MEDS ORDERED: VANCOMYCIN 500 MG (PMX) 100 ML IVPB (13:00)
[2019-04-06] MEDS: VANCOMYCIN 750 MG (PMX) 250 ML IVPB (15:00)
[2019-04-06] MEDS: LIDOCAINE 1% (MPF) 5 ML VIAL (16:56)
[2019-04-06] MEDS: MIDODRINE 5 MG TAB PO (17:00)
[2019-04-06 17:34] LABS: ANION GAP 6 (5-13); BLOOD UREA NITROGEN 36 mg/dl (7-20); CALCIUM 7.6 mg/dl (8.4-10.2); CARBON DIOXIDE 38 mmol/L (21-31); CHLORIDE 94 mmol/L (97-110); CREATININE 0.65 mg/dl (0.44-1.00); Estimated GFR > 60 mL/min (>60); GLUCOSE 101 mg/dl (70-220); SODIUM 138 mmol/L (135-144)
[2019-04-06] MEDS: FENTAnyl 50 MCG/ML VIAL IV ×2 (18:40→19:23)
[2019-04-06] MEDS: ALBUMIN HUMAN 25% 100 ML IV ×2 (19:24→19:41)
[2019-04-06] MEDS ORDERED: POTASSIUM CHLORIDE 100 ML IVPB (20:19)
[2019-04-06] MEDS: HYDROmorphONE 2 MG/ML SYG IV ×2 (21:02→22:05)
[2019-04-07] MEDS: morphine 2 MG INJ IV ×3 (00:03→13:19)
[2019-04-07] MEDS: PIPER-TAZO 3.375 GM IV (PMX) 100 ML IVPB ×4 (00:39→17:20)
[2019-04-07] MEDS: VANCOMYCIN 750 MG (PMX) 250 ML IVPB ×2 (01:00→13:50)
[2019-04-07] MEDS: HYDROmorphONE 2 MG/ML SYG IV ×3 (01:04→11:07)
[2019-04-07] MEDS: NORepinephrine 8MG/250 ML (PMX 250 ML IV (01:07)
[2019-04-07 05:09] LABS: WHITE BLOOD COUNT 2.4 10^3/ul (4.8-10.8)
[2019-04-07 05:09] LABS: ABNORMAL IP MESSAGE 1; HEMATOCRIT 22.2 % (37.0-47.0); HEMOGLOBIN 7.1 g/dl (12.0-16.0); MEAN CORPUSCULAR HEMOGLOBIN 28.4 pg (29.0-33.0); MEAN CORPUSCULAR VOLUME 88.8 fl (82.0-101.0); MEAN PLATELET VOLUME 10.2 fl (7.4-10.4); PLATELET COUNT 227 10^3/UL (140-415); RED CELL DISTRIBUTION WIDTH 17.7 % (11.5-14.5)
[2019-04-07 05:27] LABS: ALANINE AMINOTRANSFERASE 24 IU/L (13-69); ALBUMIN 2.7 g/dl (3.3-4.9); ALKALINE PHOSPHATASE 97 IU/L (42-121); ANION GAP 5 (5-13); ASPARTATE AMINO TRANSFERASE 18 IU/L (15-46); BILIRUBIN,INDIRECT 0.6 mg/dl (0-1.1); BILIRUBIN,TOTAL 0.6 mg/dl (0.2-1.3); BLOOD UREA NITROGEN 21 mg/dl (7-20); CALCIUM 7.8 mg/dl (8.4-10.2); CARBON DIOXIDE 35 mmol/L (21-31); CHLORIDE 101 mmol/L (97-110); CREATININE 0.62 mg/dl (0.44-1.00); Estimated GFR > 60 mL/min (>60); GLUCOSE 95 mg/dl (70-220); POSITIVE DIFF @See below; SODIUM 141 mmol/L (135-144); TOTAL PROTEIN 5.4 g/dl (6.1-8.1)
[2019-04-07 05:28] LABS: ADD MAN DIFF? YES
[2019-04-07 05:43] LABS: POTASSIUM 2.8 mmol/L (3.5-5.1)
[2019-04-07] MEDS: POTASSIUM CHLORIDE 50 ML IVPB ×3 (05:59→10:00)
[2019-04-07] MEDS: PANTOPRAZOLE 40 MG INJ IV ×2 (05:59→17:20)
[2019-04-07] MEDS: POTASSIUM CHLORIDE 30 MEQ in SOD CHLORIDE 0.9% 1,000 ML IV ×2 (06:13→15:11)
[2019-04-07 07:22] LABS: ANISOCYTOSIS 1+ (0-0); BAND NEUTROPHILS #M 0.5 10^3/ul (0.0-0.6); BAND NEUTROPHILS % (M) 22 % (0-4); BASOPHIL #M 0.1 10^3/ul (0.0-0.0); BASOPHILS % (M) 7 % (0-2); EOSINOPHILS % (M) 12 % (0-7); GIANT THROMBO% (M) 8 % (0-0); LYMPHOCYTES #M 0.4 10^3/ul (0.8-2.9); LYMPHOCYTES % (M) 18 % (15-51); MONOCYTE #M 0.1 10^3/ul (0.3-0.9); MONOCYTES % (M) 8 % (0-11); PLATELET ESTIMATE NORMAL; POIKILOCYTOSIS 1+ (0-0); POLYCHROMASIA 2+ (0-0); SEG NEUT #M 0.8 10^3/ul (1.6-7.5); SEGMENTED NEUTROPHILS (M) % 33 % (39-77); SMUDGE%M 48 % (0-0)
[2019-04-07] MEDS: ENOXAPARIN 40 MG/0.4 ML SYG SC (08:57)
[2019-04-07] MEDS: MIDODRINE 5 MG TAB PO ×3 (08:57→16:38)
[2019-04-07 10:53] LABS: IMMEDIATE SPIN CROSSMATCH 1 1
[2019-04-07 16:42] LABS: OCCULT BLOOD STOOL POSITIVE (NEGATIVE)
[2019-04-07] MEDS: oxyCODONE 15 MG TAB GTB ×2 (17:21→21:17)
[2019-04-08] MEDS: PIPER-TAZO 3.375 GM IV (PMX) 100 ML IVPB ×5 (01:24→23:33)
[2019-04-08] MEDS: oxyCODONE 15 MG TAB GTB ×5 (01:24→19:40)
[2019-04-08] MEDS: VANCOMYCIN 750 MG (PMX) 250 ML IVPB ×2 (01:25→13:50)
[2019-04-08] MEDS: POTASSIUM CHLORIDE 30 MEQ in SOD CHLORIDE 0.9% 1,000 ML IV ×2 (02:53→12:46)
[2019-04-08] MEDS: HYDROmorphONE 2 MG/ML SYG IV ×4 (04:33→23:33)
[2019-04-08] MEDS: PANTOPRAZOLE 40 MG INJ IV ×2 (05:12→18:17)
[2019-04-08 05:20] LABS: HEMATOCRIT 27.3 % (37.0-47.0); HEMOGLOBIN 8.5 g/dl (12.0-16.0); MEAN CORPUSCULAR HEMOGLOBIN 28.6 pg (29.0-33.0); MEAN CORPUSCULAR HGB CONC 31.1 g/dl (32.0-37.0); MEAN CORPUSCULAR VOLUME 91.9 fl (82.0-101.0); MEAN PLATELET VOLUME 10.5 fl (7.4-10.4); PLATELET COUNT 220 10^3/UL (140-415); RED BLOOD COUNT 2.97 10^6/ul (4.20-5.40); RED CELL DISTRIBUTION WIDTH 17.3 % (11.5-14.5)
[2019-04-08 05:42] LABS: ALANINE AMINOTRANSFERASE 24 IU/L (13-69); ALBUMIN 2.2 g/dl (3.3-4.9); ALBUMIN/GLOBULIN RATIO 0.81; ALKALINE PHOSPHATASE 105 IU/L (42-121); ANION GAP 2 (5-13); ASPARTATE AMINO TRANSFERASE 17 IU/L (15-46); BILIRUBIN,INDIRECT 0.6 mg/dl (0-1.1); BILIRUBIN,TOTAL 0.6 mg/dl (0.2-1.3); BLOOD UREA NITROGEN 11 mg/dl (7-20); CALCIUM 7.8 mg/dl (8.4-10.2); CARBON DIOXIDE 28 mmol/L (21-31); CHLORIDE 113 mmol/L (97-110); CREATININE 0.56 mg/dl (0.44-1.00); Estimated GFR > 60 mL/min (>60); GLUCOSE 90 mg/dl (70-220); POTASSIUM 3.8 mmol/L (3.5-5.1); SODIUM 143 mmol/L (135-144); TOTAL PROTEIN 4.9 g/dl (6.1-8.1)
[2019-04-08 06:09] LABS: ADD MAN DIFF? YES; POSITIVE DIFF @See below
[2019-04-08] MEDS: MIDODRINE 5 MG TAB PO ×4 (08:25→21:11)
[2019-04-08 09:21] LABS: ANISOCYTOSIS 1+ (0-0); BAND NEUTROPHILS #M 0.8 10^3/ul (0.0-0.6); BAND NEUTROPHILS % (M) 20 % (0-4); BASOPHILS % (M) 1 % (0-2); BURR CELLS 1+ (0-0); EOSINOPHILS % (M) 7 % (0-7); GIANT THROMBO% (M) 4 % (0-0); HYPOCHROMASIA 1+ (0-0); LYMPHOCYTES #M 0.5 10^3/ul (0.8-2.9); LYMPHOCYTES % (M) 14 % (15-51); METAMYELOCYTES %M 1 % (0-0); MICROCYTOSIS 1+ (0-0); MONOCYTE #M 0.4 10^3/ul (0.3-0.9); MONOCYTES % (M) 12 % (0-11); PLATELET ESTIMATE NORMAL; POIKILOCYTOSIS 1+ (0-0); POLYCHROMASIA 3+ (0-0); SEG NEUT #M 1.8 10^3/ul (1.6-7.5); SEGMENTED NEUTROPHILS (M) % 45 % (39-77); SMUDGE%M 4 % (0-0); TARGET CELLS 1+ (0-0)
[2019-04-08] MEDS ORDERED: morphine (ER) 15 MG TAB PO (11:30)
[2019-04-08] MEDS: morphine 2 MG INJ IV (16:32)
[2019-04-09] MEDS: oxyCODONE 15 MG TAB GTB ×5 (00:28→20:46)
[2019-04-09] MEDS: VANCOMYCIN 750 MG (PMX) 250 ML IVPB ×2 (00:33→13:17)
[2019-04-09 05:03] LABS: WHITE BLOOD COUNT 6.2 10^3/ul (4.8-10.8)
[2019-04-09 05:03] LABS: HEMATOCRIT 29.9 % (37.0-47.0); HEMOGLOBIN 9.2 g/dl (12.0-16.0); MEAN CORPUSCULAR HGB CONC 30.8 g/dl (32.0-37.0); MEAN CORPUSCULAR VOLUME 94.3 fl (82.0-101.0); MEAN PLATELET VOLUME 11.1 fl (7.4-10.4); PLATELET COUNT 232 10^3/UL (140-415); RED BLOOD COUNT 3.17 10^6/ul (4.20-5.40); RED CELL DISTRIBUTION WIDTH 17.9 % (11.5-14.5)
[2019-04-09 05:05] LABS: ADD MAN DIFF? YES; POSITIVE DIFF @See below
[2019-04-09 05:26] LABS: ALANINE AMINOTRANSFERASE 20 IU/L (13-69); ALBUMIN 2.4 g/dl (3.3-4.9); ALBUMIN/GLOBULIN RATIO 0.88; ALKALINE PHOSPHATASE 120 IU/L (42-121); ANION GAP 2 (5-13); ASPARTATE AMINO TRANSFERASE 24 IU/L (15-46); BILIRUBIN,INDIRECT 0.5 mg/dl (0-1.1); BILIRUBIN,TOTAL 0.5 mg/dl (0.2-1.3); BLOOD UREA NITROGEN 9 mg/dl (7-20); CALCIUM 7.9 mg/dl (8.4-10.2); CARBON DIOXIDE 26 mmol/L (21-31); CHLORIDE 115 mmol/L (97-110); CREATININE 0.57 mg/dl (0.44-1.00); Estimated GFR > 60 mL/min (>60); GLUCOSE 93 mg/dl (70-220); POTASSIUM 4.2 mmol/L (3.5-5.1); SODIUM 143 mmol/L (135-144); TOTAL PROTEIN 5.1 g/dl (6.1-8.1)
[2019-04-09] MEDS: PANTOPRAZOLE 40 MG INJ IV ×2 (05:29→18:16)
[2019-04-09] MEDS: PIPER-TAZO 3.375 GM IV (PMX) 100 ML IVPB ×2 (05:29→11:36)
[2019-04-09] MEDS: POTASSIUM CHLORIDE 30 MEQ in SOD CHLORIDE 0.9% 1,000 ML IV (06:51)
[2019-04-09 07:56] LABS: ANISOCYTOSIS 1+ (0-0); BAND NEUTROPHILS #M 0.8 10^3/ul (0.0-0.6); BAND NEUTROPHILS % (M) 13 % (0-4); BASOPHILS % (M) 1 % (0-2); EOSINOPHILS % (M) 6 % (0-7); ERYTHROBLAST% (NRBC) (M) 2 % (0-0); GIANT THROMBO% (M) 5 % (0-0); LYMPHOCYTES #M 0.3 10^3/ul (0.8-2.9); LYMPHOCYTES % (M) 6 % (15-51); METAMYELOCYTES %M 1 % (0-0); MICROCYTOSIS 1+ (0-0); MONOCYTE #M 0.1 10^3/ul (0.3-0.9); MONOCYTES % (M) 3 % (0-11); PLATELET ESTIMATE NORMAL; POLYCHROMASIA 1+ (0-0); REACTIVE LYMPHOCYTES #M 0.3 10^3/ul (0.0-0.0); REACTIVE LYMPHOCYTES% (M) 6 % (0-0); SEGMENTED NEUTROPHILS (M) % 64 % (39-77); SMUDGE%M 37 % (0-0)
[2019-04-09] MEDS: MIDODRINE 5 MG TAB PO ×2 (10:10→13:18)
[2019-04-09] MEDS: CEFTRIAXONE 1 GM/50 ML (PMX) 50 ML IVPB (15:13)
[2019-04-09] MEDS: HYOSCYAMINE 0.125 MG SUBL TAB PO ×2 (18:16→22:07)
[2019-04-09] MEDS: MIDODRINE 5 MG TAB NGT (18:16)
[2019-04-10] MEDS: oxyCODONE 15 MG TAB GTB ×5 (00:54→20:55)
[2019-04-10] MEDS: PANTOPRAZOLE 40 MG INJ IV ×2 (06:24→17:24)
[2019-04-10] MEDS: HYOSCYAMINE 0.125 MG SUBL TAB PO ×3 (06:24→20:55)
[2019-04-10 08:50] LABS: IRON 22 ug/dl (35-150)
[2019-04-10 09:00] LABS: % IRON SATURATION 15 % SAT (22-52); TOTAL IRON BINDING CAPACITY 145 ug/dl (241-421)
[2019-04-10] MEDS: HYDROmorphONE 2 MG/ML SYG IV ×3 (09:17→19:20)
[2019-04-10] MEDS: MIDODRINE 5 MG TAB NGT ×2 (09:22→16:19)
[2019-04-10] MEDS: CEFTRIAXONE 1 GM/50 ML (PMX) 50 ML IVPB (13:41)
[2019-04-10] MEDS: LIDOCAINE 1% (MPF) 5 ML VIAL (15:45)
[2019-04-10 16:13] LABS: FLD PMN% 26.8 %; FLD WBC 71 /cmm
[2019-04-10 17:53] LABS: FLD TYPE ASCITES
[2019-04-10 17:53] LABS: FLD CLARITY HAZY; FLD COLOR YELLOW
[2019-04-10 18:00] LABS: FLD MN% 73.2 %
[2019-04-10 18:01] LABS: FLD RBC < 2000 /uL; PATH REVIEW? YES
[2019-04-11] MEDS: oxyCODONE 15 MG TAB GTB ×5 (02:10→20:26)
[2019-04-11] MEDS: PANTOPRAZOLE 40 MG INJ IV (05:20)
[2019-04-11] MEDS: HYOSCYAMINE 0.125 MG SUBL TAB PO ×3 (05:20→20:26)
[2019-04-11] MEDS: HYDROmorphONE 2 MG/ML SYG IV ×3 (05:21→22:23)
[2019-04-11] MEDS: MIDODRINE 5 MG TAB NGT ×2 (08:12→16:34)
[2019-04-11] MEDS: ONDANSETRON 4 MG TAB GTB (08:27)
[2019-04-11] MEDS: SOD FERRIC GLUC COMPLX 125 MG in SOD CHLORIDE 0.9% 100 ML IVPB ×2 (10:51→14:42)
[2019-04-11] MEDS: CEFTRIAXONE 1 GM/50 ML (PMX) 50 ML IVPB (13:51)
[2019-04-11] MEDS: LANSOPRAZOLE 30 MG CAP GTB (17:39)
[2019-04-12] MEDS: oxyCODONE 15 MG TAB GTB ×6 (00:28→22:46)
[2019-04-12] MEDS: HYOSCYAMINE 0.125 MG SUBL TAB PO ×3 (06:12→21:19)
[2019-04-12] MEDS: LANSOPRAZOLE 30 MG CAP GTB ×2 (06:12→17:59)
[2019-04-12] MEDS: HYDROmorphONE 2 MG/ML SYG IV ×4 (06:15→20:15)
[2019-04-12] MEDS: MIDODRINE 5 MG TAB NGT ×2 (09:34→18:00)
[2019-04-12] MEDS: SOD FERRIC GLUC COMPLX 125 MG in SOD CHLORIDE 0.9% 100 ML IVPB (12:50)
[2019-04-12] MEDS: CEFTRIAXONE 1 GM/50 ML (PMX) 50 ML IVPB (14:33)
[2019-04-12 18:46] LABS: INR 1.02; PROTIME 13.5 Sec (11.9-14.9); PT RATIO 1.1
[2019-04-12 18:47] LABS: PARTIAL THROMBOPLASTIN TIME 41.9 Sec (23.0-35.0)
[2019-04-13] MEDS: HYDROmorphONE 2 MG/ML SYG IV ×6 (01:21→23:56)
[2019-04-13] MEDS: oxyCODONE 15 MG TAB GTB ×5 (03:37→22:24)
[2019-04-13 06:30] LABS: ADD MAN DIFF? NO
[2019-04-13] MEDS: HYOSCYAMINE 0.125 MG SUBL TAB PO ×3 (06:36→22:23)
[2019-04-13] MEDS: LANSOPRAZOLE 30 MG CAP GTB ×2 (06:37→17:59)
[2019-04-13 06:43] LABS: WHITE BLOOD COUNT 13.9 10^3/ul (4.8-10.8)
[2019-04-13 06:43] LABS: BASOPHIL # 0.1 10^3/ul (0.0-0.1); BASOPHILS % 0.6 % (0.0-2.0); EOSINOPHILS # 0.2 10^3/ul (0.0-0.5); EOSINOPHILS % 1.6 % (0.0-7.0); HEMATOCRIT 30.4 % (37.0-47.0); HEMOGLOBIN 9.6 g/dl (12.0-16.0); LYMPHOCYTES # 1.3 10^3/ul (0.8-2.9); LYMPHOCYTES % 9.1 % (15.0-51.0); MEAN CORPUSCULAR HEMOGLOBIN 29.2 pg (29.0-33.0); MEAN CORPUSCULAR HGB CONC 31.6 g/dl (32.0-37.0); MEAN CORPUSCULAR VOLUME 92.4 fl (82.0-101.0); MEAN PLATELET VOLUME 11.3 fl (7.4-10.4); MONOCYTES % 6.8 % (0.0-11.0); NEUTROPHIL # 11.3 10^3/ul (1.6-7.5); NEUTROPHILS % 81.2 % (39.0-77.0); NUCLEATED RED BLOOD CELLS% 0.1 /100WBC (0.0-0.0); PLATELET COUNT 261 10^3/UL (140-415); RED BLOOD COUNT 3.29 10^6/ul (4.20-5.40); RED CELL DISTRIBUTION WIDTH 19.9 % (11.5-14.5)
[2019-04-13 07:12] LABS: ALANINE AMINOTRANSFERASE 29 IU/L (13-69); ALBUMIN 2.2 g/dl (3.3-4.9); ALBUMIN/GLOBULIN RATIO 0.81; ALKALINE PHOSPHATASE 119 IU/L (42-121); ANION GAP 3 (5-13); ASPARTATE AMINO TRANSFERASE 29 IU/L (15-46); BILIRUBIN,INDIRECT 0.3 mg/dl (0-1.1); BILIRUBIN,TOTAL 0.3 mg/dl (0.2-1.3); BLOOD UREA NITROGEN 15 mg/dl (7-20); CALCIUM 8.1 mg/dl (8.4-10.2); CARBON DIOXIDE 25 mmol/L (21-31); CHLORIDE 104 mmol/L (97-110); CREATININE 0.58 mg/dl (0.44-1.00); Estimated GFR > 60 mL/min (>60); GLUCOSE 96 mg/dl (70-220); POTASSIUM 4.4 mmol/L (3.5-5.1); SODIUM 132 mmol/L (135-144); TOTAL PROTEIN 4.9 g/dl (6.1-8.1)
[2019-04-13] MEDS: ONDANSETRON 4 MG TAB GTB (08:37)
[2019-04-13] MEDS: MIDODRINE 5 MG TAB NGT ×2 (08:37→17:59)
[2019-04-13] MEDS: SOD FERRIC GLUC COMPLX 125 MG in SOD CHLORIDE 0.9% 100 ML IVPB (12:55)
[2019-04-14] MEDS: morphine 2 MG INJ IV ×3 (02:33→20:27)
[2019-04-14] MEDS: HYDROmorphONE 2 MG/ML SYG IV ×3 (04:04→10:19)
[2019-04-14] MEDS: oxyCODONE 15 MG TAB GTB ×4 (05:15→22:59)
[2019-04-14] MEDS: HYOSCYAMINE 0.125 MG SUBL TAB PO ×3 (05:16→21:13)
[2019-04-14] MEDS: LANSOPRAZOLE 30 MG CAP GTB ×2 (05:16→21:13)
[2019-04-14] MEDS: MIDODRINE 5 MG TAB NGT ×2 (08:27→21:12)
[2019-04-14] MEDS: MIDAZOLAM 1 MG/ML 2 ML INJ (09:36)
[2019-04-14] MEDS: FENTAnyl 50 MCG/ML VIAL (09:36)
[2019-04-14] MEDS: LIDOCAINE 1% (MDV) 20 ML INJ (09:37)
[2019-04-14] MEDS ORDERED: VANCOMYCIN IV PER PHARMACY XX (11:30)
[2019-04-14] MEDS: ONDANSETRON 4 MG TAB GTB (13:26)
[2019-04-14] MEDS: FLUCONAZOLE 200 MG (PMX) 100 ML IVPB (13:30)
[2019-04-14] MEDS: MUPIROCIN 2% 22 GM OINT TOP ×2 (14:30→22:48)
[2019-04-14] MEDS: VANCOMYCIN 1 GM 250 ML IVPB (14:49)
[2019-04-14] MEDS ORDERED: ONDANSETRON 4 MG INJ IV (18:00)
[2019-04-14] MEDS: HYDROmorphONE 1 MG/5 ML IV SYRINGE IV (18:21)
[2019-04-14] MEDS: HEPARIN 5,000 UNIT/1 ML VIAL SC (21:12)
[2019-04-14] MEDS: NYSTATIN 15 GM OINT TOP (22:48)
[2019-04-14] MEDS: ONDANSETRON INJ 8 MG in DEXTROSE 5% 50 ML IV (22:48)
[2019-04-15] MEDS: HYDROmorphONE 2 MG/ML SYG IV ×6 (01:10→21:14)
[2019-04-15] MEDS: VANCOMYCIN 750 MG (PMX) 250 ML IVPB ×2 (03:48→15:08)
[2019-04-15] MEDS: oxyCODONE 15 MG TAB GTB ×5 (03:55→23:30)
[2019-04-15 06:18] LABS: ADD MAN DIFF? NO
[2019-04-15] MEDS: HYOSCYAMINE 0.125 MG SUBL TAB PO ×3 (06:22→23:30)
[2019-04-15] MEDS: LANSOPRAZOLE 30 MG CAP GTB ×2 (06:22→17:08)
[2019-04-15 06:26] LABS: WHITE BLOOD COUNT 18.3 10^3/ul (4.8-10.8)
[2019-04-15 06:26] LABS: BASOPHIL # 0.1 10^3/ul (0.0-0.1); BASOPHILS % 0.6 % (0.0-2.0); EOSINOPHILS # 0.1 10^3/ul (0.0-0.5); EOSINOPHILS % 0.3 % (0.0-7.0); HEMATOCRIT 29.9 % (37.0-47.0); HEMOGLOBIN 9.3 g/dl (12.0-16.0); LYMPHOCYTES # 1.3 10^3/ul (0.8-2.9); LYMPHOCYTES % 7.1 % (15.0-51.0); MEAN CORPUSCULAR HEMOGLOBIN 29.2 pg (29.0-33.0); MEAN CORPUSCULAR HGB CONC 31.1 g/dl (32.0-37.0); MEAN CORPUSCULAR VOLUME 93.7 fl (82.0-101.0); MONOCYTE # 1.1 10^3/ul (0.3-0.9); MONOCYTES % 5.9 % (0.0-11.0); NEUTROPHIL # 15.6 10^3/ul (1.6-7.5); NEUTROPHILS % 85.6 % (39.0-77.0); PLATELET COUNT 306 10^3/UL (140-415); RED BLOOD COUNT 3.19 10^6/ul (4.20-5.40); RED CELL DISTRIBUTION WIDTH 20.3 % (11.5-14.5)
[2019-04-15 07:05] LABS: ANION GAP 5 (5-13); BLOOD UREA NITROGEN 18 mg/dl (7-20); CALCIUM 7.9 mg/dl (8.4-10.2); CARBON DIOXIDE 23 mmol/L (21-31); CHLORIDE 105 mmol/L (97-110); CREATININE 0.67 mg/dl (0.44-1.00); Estimated GFR > 60 mL/min (>60); GLUCOSE 75 mg/dl (70-220); MAGNESIUM 1.9 mg/dl (1.7-2.5); PHOSPHORUS 4.2 mg/dl (2.5-4.9); POTASSIUM 4.5 mmol/L (3.5-5.1); SODIUM 133 mmol/L (135-144)
[2019-04-15] MEDS: NYSTATIN 15 GM OINT TOP ×2 (09:45→13:40)
[2019-04-15] MEDS: MIDODRINE 5 MG TAB NGT ×2 (09:45→17:11)
[2019-04-15] MEDS: MUPIROCIN 2% 22 GM OINT TOP (09:45)
[2019-04-15] MEDS: HEPARIN 5,000 UNIT/1 ML VIAL SC (09:46)
[2019-04-15] MEDS: FLUCONAZOLE 200 MG (PMX) 100 ML IVPB (11:09)
[2019-04-15] MEDS: ONDANSETRON INJ 8 MG in DEXTROSE 5% 50 ML IV ×2 (16:35→23:34)
[2019-04-15] MEDS: PIPER-TAZO 3.375 GM IV (PMX) 100 ML IVPB ×2 (19:00→21:51)
[2019-04-15] MEDS: IOHEXOL 14.3 MG(I)/ML (ADULT) BTL PO (21:17)
[2019-04-16] MEDS: HYDROmorphONE 2 MG/ML SYG IV ×5 (01:14→20:07)
[2019-04-16] MEDS: HEPARIN 5,000 UNIT/1 ML VIAL SC ×3 (01:28→21:31)
[2019-04-16] MEDS: VANCOMYCIN 750 MG (PMX) 250 ML IVPB (03:29)
[2019-04-16] MEDS: oxyCODONE 15 MG TAB GTB ×5 (03:34→22:44)
[2019-04-16 06:05] LABS: ADD MAN DIFF? NO
[2019-04-16 06:15] LABS: WHITE BLOOD COUNT 25.2 10^3/ul (4.8-10.8)
[2019-04-16 06:15] LABS: ABNORMAL IP MESSAGE 1; BASOPHIL # 0.2 10^3/ul (0.0-0.1); BASOPHILS % 0.7 % (0.0-2.0); EOSINOPHILS # 0.1 10^3/ul (0.0-0.5); EOSINOPHILS % 0.2 % (0.0-7.0); HEMATOCRIT 30.3 % (37.0-47.0); HEMOGLOBIN 9.7 g/dl (12.0-16.0); LYMPHOCYTES # 1.4 10^3/ul (0.8-2.9); LYMPHOCYTES % 5.4 % (15.0-51.0); MEAN CORPUSCULAR VOLUME 93.8 fl (82.0-101.0); MEAN PLATELET VOLUME 10.9 fl (7.4-10.4); MONOCYTE # 1.7 10^3/ul (0.3-0.9); MONOCYTES % 6.9 % (0.0-11.0); NEUTROPHIL # 21.7 10^3/ul (1.6-7.5); NEUTROPHILS % 86.1 % (39.0-77.0); PLATELET COUNT 325 10^3/UL (140-415); RED BLOOD COUNT 3.23 10^6/ul (4.20-5.40); RED CELL DISTRIBUTION WIDTH 20.4 % (11.5-14.5)
[2019-04-16] MEDS: PIPER-TAZO 3.375 GM IV (PMX) 100 ML IVPB ×2 (06:18→13:53)
[2019-04-16] MEDS: LANSOPRAZOLE 30 MG CAP GTB ×2 (06:19→18:18)
[2019-04-16] MEDS: HYOSCYAMINE 0.125 MG SUBL TAB PO ×3 (06:24→21:11)
[2019-04-16 06:27] LABS: POSITIVE DIFF @See below
[2019-04-16 06:31] LABS: ANION GAP 4 (5-13); BLOOD UREA NITROGEN 21 mg/dl (7-20); CALCIUM 7.6 mg/dl (8.4-10.2); CARBON DIOXIDE 24 mmol/L (21-31); CHLORIDE 104 mmol/L (97-110); CREATININE 0.87 mg/dl (0.44-1.00); Estimated GFR > 60 mL/min (>60); GLUCOSE 82 mg/dl (70-220); POTASSIUM 4.5 mmol/L (3.5-5.1); SODIUM 132 mmol/L (135-144)
[2019-04-16] MEDS: MIDODRINE 5 MG TAB NGT ×3 (08:53→21:12)
[2019-04-16] MEDS: FLUCONAZOLE 200 MG (PMX) 100 ML IVPB (11:42)
[2019-04-16] MEDS: LIDOCAINE 1% (MPF) 5 ML VIAL (14:58)
[2019-04-16 17:05] LABS: FLD PMN% 26.5 %; FLD RBC 1000 /uL; FLD WBC 98 /cmm
[2019-04-16 17:31] LABS: VANCOMYCIN,TROUGH 19.2 ug/ml (10.0-20.0)
[2019-04-16 18:04] LABS: FLD TYPE ASCITES
[2019-04-16 18:04] LABS: FLD CLARITY HAZY; FLD COLOR YELLOW
[2019-04-16 18:05] LABS: FLD MN% 73.5 %
[2019-04-16] MEDS: metroNIDAZOLE 500 MG TAB PO ×2 (18:18→23:59)
[2019-04-16] MEDS: CEFEPIME 1GM/50 ML (PMX) 50 ML IVPB (21:09)
[2019-04-16] MEDS: ONDANSETRON INJ 8 MG in DEXTROSE 5% 50 ML IV (21:52)
[2019-04-17] MEDS: IOHEXOL 300MG/ML 150 ML BTL (00:10)
[2019-04-17] MEDS: SOD CHLORIDE 0.9% 500 ML (00:10)
[2019-04-17] MEDS: PROPOFOL 20 ML (00:11)
[2019-04-17] MEDS: LIDOCAINE 2% (SDV) 5 ML INJ (00:11)
[2019-04-17] MEDS: HYDROmorphONE 1 MG/ML SYG (00:11)
[2019-04-17] MEDS: EPHEDrine 25 MG/5 ML SYG (00:11)
[2019-04-17] MEDS: oxyCODONE 15 MG TAB GTB ×5 (05:00→23:32)
[2019-04-17 05:59] LABS: ADD MAN DIFF? NO
[2019-04-17 06:11] LABS: BASOPHIL # 0.1 10^3/ul (0.0-0.1); BASOPHILS % 0.6 % (0.0-2.0); EOSINOPHILS # 0.1 10^3/ul (0.0-0.5); EOSINOPHILS % 0.6 % (0.0-7.0); HEMATOCRIT 30.2 % (37.0-47.0); HEMOGLOBIN 9.5 g/dl (12.0-16.0); LYMPHOCYTES # 1.4 10^3/ul (0.8-2.9); LYMPHOCYTES % 6.2 % (15.0-51.0); MEAN CORPUSCULAR HEMOGLOBIN 29.2 pg (29.0-33.0); MEAN CORPUSCULAR HGB CONC 31.5 g/dl (32.0-37.0); MEAN CORPUSCULAR VOLUME 92.9 fl (82.0-101.0); MEAN PLATELET VOLUME 10.6 fl (7.4-10.4); MONOCYTE # 1.3 10^3/ul (0.3-0.9); MONOCYTES % 5.6 % (0.0-11.0); NEUTROPHIL # 19.8 10^3/ul (1.6-7.5); NEUTROPHILS % 86.4 % (39.0-77.0); PLATELET COUNT 331 10^3/UL (140-415); RED BLOOD COUNT 3.25 10^6/ul (4.20-5.40); RED CELL DISTRIBUTION WIDTH 20.2 % (11.5-14.5)
[2019-04-17 06:11] LABS: WHITE BLOOD COUNT 22.9 10^3/ul (4.8-10.8)
[2019-04-17 06:35] LABS: ANION GAP 5 (5-13); BLOOD UREA NITROGEN 25 mg/dl (7-20); CALCIUM 7.5 mg/dl (8.4-10.2); CARBON DIOXIDE 23 mmol/L (21-31); CHLORIDE 103 mmol/L (97-110); CREATININE 0.97 mg/dl (0.44-1.00); Estimated GFR > 60 mL/min (>60); GLUCOSE 96 mg/dl (70-220); POTASSIUM 4.1 mmol/L (3.5-5.1); SODIUM 131 mmol/L (135-144)
[2019-04-17] MEDS: VANCOMYCIN 750 MG (PMX) 250 ML IVPB (06:40)
[2019-04-17] MEDS: LANSOPRAZOLE 30 MG CAP GTB ×2 (06:41→18:50)
[2019-04-17] MEDS: HYOSCYAMINE 0.125 MG SUBL TAB PO ×3 (06:41→21:47)
[2019-04-17] MEDS: metroNIDAZOLE 500 MG TAB PO ×3 (06:42→21:47)
[2019-04-17] MEDS: MIDODRINE 5 MG TAB NGT ×3 (08:08→21:48)
[2019-04-17] MEDS: HYDROmorphONE 2 MG/ML SYG IV ×3 (08:11→17:13)
[2019-04-17] MEDS: HEPARIN 5,000 UNIT/1 ML VIAL SC ×2 (08:12→21:18)
[2019-04-17] MEDS: CEFEPIME 1GM/50 ML (PMX) 50 ML IVPB ×2 (08:41→21:11)
[2019-04-17] MEDS: ONDANSETRON INJ 8 MG in DEXTROSE 5% 50 ML IV (10:03)
[2019-04-17] MEDS: FLUCONAZOLE 200 MG (PMX) 100 ML IVPB (12:05)
[2019-04-18 05:18] LABS: ADD MAN DIFF? NO
[2019-04-18 05:34] LABS: WHITE BLOOD COUNT 14.2 10^3/ul (4.8-10.8)
[2019-04-18 05:34] LABS: ABNORMAL IP MESSAGE 1; BASOPHILS % 0.2 % (0.0-2.0); EOSINOPHILS % 0.1 % (0.0-7.0); HEMATOCRIT 19.9 % (37.0-47.0); LYMPHOCYTES # 0.8 10^3/ul (0.8-2.9); LYMPHOCYTES % 5.3 % (15.0-51.0); MEAN CORPUSCULAR HGB CONC 31.2 g/dl (32.0-37.0); MEAN CORPUSCULAR VOLUME 96.1 fl (82.0-101.0); MEAN PLATELET VOLUME 10.4 fl (7.4-10.4); MONOCYTE # 0.6 10^3/ul (0.3-0.9); MONOCYTES % 4.3 % (0.0-11.0); NEUTROPHIL # 12.7 10^3/ul (1.6-7.5); NEUTROPHILS % 89.5 % (39.0-77.0); PLATELET COUNT 191 10^3/UL (140-415); RED BLOOD COUNT 2.07 10^6/ul (4.20-5.40); RED CELL DISTRIBUTION WIDTH 19.7 % (11.5-14.5)
[2019-04-18 05:52] LABS: PHOSPHORUS 1.6 mg/dl (2.5-4.9)
[2019-04-18 05:52] LABS: MAGNESIUM 1.2 mg/dl (1.7-2.5)
[2019-04-18 05:57] LABS: ANION GAP 2 (5-13); BLOOD UREA NITROGEN 15 mg/dl (7-20); CARBON DIOXIDE 14 mmol/L (21-31); CHLORIDE 124 mmol/L (97-110); CREATININE 0.47 mg/dl (0.44-1.00); Estimated GFR > 60 mL/min (>60); GLUCOSE 70 mg/dl (70-220); SODIUM 140 mmol/L (135-144)
[2019-04-18 06:11] LABS: CALCIUM 3.8 mg/dl (8.4-10.2); POTASSIUM 2.1 mmol/L (3.5-5.1)
[2019-04-18] MEDS: metroNIDAZOLE 500 MG TAB PO ×3 (06:31→20:51)
[2019-04-18] MEDS: LANSOPRAZOLE 30 MG CAP GTB ×2 (06:31→17:10)
[2019-04-18] MEDS: HYOSCYAMINE 0.125 MG SUBL TAB PO ×3 (06:31→20:51)
[2019-04-18] MEDS: oxyCODONE 15 MG TAB GTB ×4 (06:31→21:05)
[2019-04-18 06:34] LABS: ADD MAN DIFF? NO
[2019-04-18] MEDS: VANCOMYCIN 750 MG (PMX) 250 ML IVPB (06:39)
[2019-04-18 06:47] LABS: HEMOGLOBIN 6.2 g/dl (12.0-16.0)
[2019-04-18 06:48] LABS: POSITIVE DIFF @See below
[2019-04-18 06:54] LABS: BASOPHIL # 0.1 10^3/ul (0.0-0.1); BASOPHILS % 0.4 % (0.0-2.0); EOSINOPHILS % 0.2 % (0.0-7.0); HEMATOCRIT 33.1 % (37.0-47.0); HEMOGLOBIN 10.4 g/dl (12.0-16.0); LYMPHOCYTES # 1.5 10^3/ul (0.8-2.9); LYMPHOCYTES % 6.9 % (15.0-51.0); MEAN CORPUSCULAR HEMOGLOBIN 29.5 pg (29.0-33.0); MEAN CORPUSCULAR HGB CONC 31.4 g/dl (32.0-37.0); MEAN CORPUSCULAR VOLUME 93.8 fl (82.0-101.0); MEAN PLATELET VOLUME 10.4 fl (7.4-10.4); MONOCYTES % 4.7 % (0.0-11.0); NEUTROPHIL # 19.3 10^3/ul (1.6-7.5); NEUTROPHILS % 87.2 % (39.0-77.0); PLATELET COUNT 342 10^3/UL (140-415); RED BLOOD COUNT 3.53 10^6/ul (4.20-5.40)
[2019-04-18 06:54] LABS: WHITE BLOOD COUNT 22.1 10^3/ul (4.8-10.8)
[2019-04-18 07:33] LABS: ANION GAP 5 (5-13); BLOOD UREA NITROGEN 27 mg/dl (7-20); CALCIUM 7.7 mg/dl (8.4-10.2); CARBON DIOXIDE 25 mmol/L (21-31); CHLORIDE 103 mmol/L (97-110); Estimated GFR > 60 mL/min (>60); GLUCOSE 105 mg/dl (70-220); MAGNESIUM 2.2 mg/dl (1.7-2.5); POTASSIUM 4.3 mmol/L (3.5-5.1); SODIUM 133 mmol/L (135-144)
[2019-04-18] MEDS: CEFEPIME 1GM/50 ML (PMX) 50 ML IVPB ×2 (08:49→20:51)
[2019-04-18] MEDS: MIDODRINE 5 MG TAB NGT ×3 (08:50→20:59)
[2019-04-18] MEDS: ONDANSETRON INJ 8 MG in DEXTROSE 5% 50 ML IV ×2 (09:49→18:08)
[2019-04-18] MEDS: HYDROmorphONE 2 MG/ML SYG IV ×2 (09:49→13:53)
[2019-04-18] MEDS: FLUCONAZOLE 200 MG (PMX) 100 ML IVPB (11:13)
[2019-04-19] MEDS: DEXTROSE 5%-0.45% NACL 1,000 ML IV (00:21)
[2019-04-19] MEDS: ONDANSETRON INJ 8 MG in DEXTROSE 5% 50 ML IV ×3 (00:22→10:58)
[2019-04-19] MEDS: oxyCODONE 15 MG TAB GTB ×4 (04:55→17:14)
[2019-04-19 05:42] LABS: ADD MAN DIFF? NO
[2019-04-19 05:51] LABS: BASOPHIL # 0.1 10^3/ul (0.0-0.1); BASOPHILS % 0.5 % (0.0-2.0); EOSINOPHILS # 0.1 10^3/ul (0.0-0.5); EOSINOPHILS % 0.2 % (0.0-7.0); HEMATOCRIT 33.1 % (37.0-47.0); HEMOGLOBIN 10.6 g/dl (12.0-16.0); LYMPHOCYTES # 1.9 10^3/ul (0.8-2.9); LYMPHOCYTES % 8.8 % (15.0-51.0); MEAN CORPUSCULAR HEMOGLOBIN 29.8 pg (29.0-33.0); MEAN PLATELET VOLUME 10.5 fl (7.4-10.4); MONOCYTE # 1.2 10^3/ul (0.3-0.9); MONOCYTES % 5.6 % (0.0-11.0); NEUTROPHIL # 17.9 10^3/ul (1.6-7.5); NEUTROPHILS % 84.3 % (39.0-77.0); PLATELET COUNT 364 10^3/UL (140-415); RED BLOOD COUNT 3.56 10^6/ul (4.20-5.40); RED CELL DISTRIBUTION WIDTH 19.9 % (11.5-14.5)
[2019-04-19 05:51] LABS: WHITE BLOOD COUNT 21.3 10^3/ul (4.8-10.8)
[2019-04-19 06:14] LABS: MAGNESIUM 2.2 mg/dl (1.7-2.5)
[2019-04-19 06:14] LABS: PHOSPHORUS 2.7 mg/dl (2.5-4.9)
[2019-04-19] MEDS: HYOSCYAMINE 0.125 MG SUBL TAB PO ×2 (06:23→13:51)
[2019-04-19] MEDS: metroNIDAZOLE 500 MG TAB PO ×2 (06:23→13:51)
[2019-04-19] MEDS: LANSOPRAZOLE 30 MG CAP GTB (06:23)
[2019-04-19] MEDS: VANCOMYCIN 750 MG (PMX) 250 ML IVPB (06:26)
[2019-04-19 06:29] LABS: ANION GAP 6 (5-13); CARBON DIOXIDE 23 mmol/L (21-31); CHLORIDE 102 mmol/L (97-110); POTASSIUM 4.1 mmol/L (3.5-5.1); SODIUM 131 mmol/L (135-144)
[2019-04-19 06:30] LABS: ALANINE AMINOTRANSFERASE 23 IU/L (13-69); ALBUMIN 2.1 g/dl (3.3-4.9); ALBUMIN/GLOBULIN RATIO 0.75; ALKALINE PHOSPHATASE 128 IU/L (42-121); ASPARTATE AMINO TRANSFERASE 30 IU/L (15-46); BILIRUBIN,INDIRECT 0.3 mg/dl (0-1.1); BILIRUBIN,TOTAL 0.3 mg/dl (0.2-1.3); BLOOD UREA NITROGEN 25 mg/dl (7-20); CALCIUM 7.7 mg/dl (8.4-10.2); CREATININE 0.85 mg/dl (0.44-1.00); Estimated GFR > 60 mL/min (>60); GLUCOSE 86 mg/dl (70-220); TOTAL PROTEIN 4.9 g/dl (6.1-8.1)
[2019-04-19] MEDS: CEFEPIME 1GM/50 ML (PMX) 50 ML IVPB (09:03)
[2019-04-19] MEDS: MIDODRINE 5 MG TAB NGT ×2 (09:25→16:06)
[2019-04-19] MEDS: FLUCONAZOLE 200 MG (PMX) 100 ML IVPB (11:51)
[2019-04-19] MEDS: HEPARIN (100 UNITS/ML) 5 ML SYG CATHETER (16:33)
[2019-04-20] MEDS ORDERED: LEVOFLOXACIN 500 MG TAB PO (06:00)
[2019-04-20] MEDS ORDERED: FLUCONAZOLE 100 MG TAB PO (09:00)
== END 2019-04-19 18:20 | disposition home health service (06) | DRG 871 ==
LOC: ICU 04-06 19:49 → MS1 04-09 16:05 → E/R 20:56 → ICU 04-06 00:58
PROVIDERS: Family Medicine
PROC: 06HY33Z Insertion of Infusion Device into Lower Vein, Percutaneous Approach (ICD-10-PCS; principal; 2019-04-14 15:44)
PROC: 0W9G3ZZ Drainage of Peritoneal Cavity, Percutaneous Approach (ICD-10-PCS; 2019-04-14 15:44)
PROC: 30233N1 Transfusion of Nonautologous Red Blood Cells into Peripheral Vein, Percutaneous Approach (ICD-10-PCS; 2019-04-14 15:44)
PROC: 0W9G3ZZ Drainage of Peritoneal Cavity, Percutaneous Approach (ICD-10-PCS; 2019-04-14 15:44)
PROC: 0DP68UZ Removal of Feeding Device from Stomach, Via Natural or Artificial Opening Endoscopic (ICD-10-PCS; 2019-04-14 15:44)
PROC: 0DH63UZ Insertion of Feeding Device into Stomach, Percutaneous Approach (ICD-10-PCS; 2019-04-14 15:44)
PROC: 0W9G3ZZ Drainage of Peritoneal Cavity, Percutaneous Approach (ICD-10-PCS; 2019-04-14 15:44)
PROC: 0D2DXUZ Change Feeding Device in Lower Intestinal Tract, External Approach (ICD-10-PCS; 2019-04-14 15:44)
DX: A41.9 Sepsis, unspecified organism (principal); R65.21 Severe sepsis with septic shock; E87.1 Hypo-osmolality and hyponatremia; C16.9 Malignant neoplasm of stomach, unspecified; E87.3 Alkalosis; R18.0 Malignant ascites; N39.0 Urinary tract infection, site not specified; L03.311 Cellulitis of abdominal wall; K94.13 Enterostomy malfunction; C78.6 Secondary malignant neoplasm of retroperitoneum and peritoneum; K31.1 Adult hypertrophic pyloric stenosis; E87.8 Other disorders of electrolyte and fluid balance, not elsewhere classified; D63.8 Anemia in other chronic diseases classified elsewhere; E86.0 Dehydration; E87.6 Hypokalemia; D50.9 Iron deficiency anemia, unspecified; D50.0 Iron deficiency anemia secondary to blood loss (chronic); G89.3 Neoplasm related pain (acute) (chronic); E83.51 Hypocalcemia; R19.7 Diarrhea, unspecified; D72.819 Decreased white blood cell count, unspecified
CPT/HCPCS: 36415; 36430; 49423; 71045; 74018; 74176; 80048; 80053; 80202; 81003; 81025; 82270; 82306; 82533; 83540; 83605; 83735; 84100; 84484; 85025; 85610; 85730; 86850; 86900; 86901; 86920; 87040-91; 87045; 87070; 87075; 87081; 87086; 87102; 87116; 87177; 87205; 88104; 88305; 88341; 88342; 89051; 93005; 96374; 96375; 97110; 97116; 97163; 97530; 99285-25

== ENCOUNTER 2019-05-14 20:33 | Inpatient (IN) | payer MEDICAID ==
[2019-05-14] MEDS: ONDANSETRON 4 MG INJ IV (22:00)
[2019-05-14] MEDS: SOD CHLORIDE 0.9% 500 ML IV (22:00)
[2019-05-14] MEDS ORDERED: SODIUM CHLORIDE 0.9% 1L BAG IV* (23:07)
[2019-05-15] MEDS ORDERED: ACETAMINOPHEN 325 MG TAB PO
[2019-05-15] MEDS: oxyCODONE 5 MG TAB PO (00:05)
[2019-05-15] MEDS: CEFEPIME 2GM/50 ML (PMX) 50 ML IVPB (00:06)
[2019-05-15] MEDS: POTASSIUM CHLORIDE 100 ML IVPB ×5 (00:06→22:42)
[2019-05-15] MEDS ORDERED: ACETAMINOPHEN 650MG/20.3ML CUP PO (00:30)
[2019-05-15] MEDS: ONDANSETRON 4 MG INJ IV ×2 (01:02→09:39)
[2019-05-15] MEDS: morphine 4 MG/ML VIAL IV (01:02)
[2019-05-15] MEDS: VANCOMYCIN 1 GM (PMX) 250 ML IVPB (01:21)
[2019-05-15] MEDS: SOD CHLORIDE 0.9% 1,000 ML IV ×4 (01:22→16:44)
[2019-05-15] MEDS: ALBUMIN HUMAN 25% 100 ML IV (02:32)
[2019-05-15] MEDS: morphine 2 MG INJ IV ×2 (02:53→07:03)
[2019-05-15] MEDS: oxyCODONE 15 MG TAB PO ×3 (04:58→22:43)
[2019-05-15] MEDS: PANTOPRAZOLE 40 MG INJ IV (05:47)
[2019-05-15] MEDS: HYDROmorphONE 1 MG/ML SYG IV ×2 (09:41→15:04)
[2019-05-15] MEDS ORDERED: morphine 2 MG INJ IV (11:00)
[2019-05-15] MEDS ORDERED: VANCOMYCIN IV PER PHARMACY XX (12:30)
[2019-05-15] MEDS: SENNA TAB PO ×2 (13:33→21:12)
[2019-05-15] MEDS: PIPER-TAZO 3.375 GM IV (PMX) 100 ML IVPB ×2 (13:33→18:15)
[2019-05-15] MEDS: DOCUSATE SODIUM 100 MG CAP PO (13:33)
[2019-05-15] MEDS: VANCOMYCIN 500 MG (PMX) 100 ML IVPB (16:47)
[2019-05-15] MEDS: DOCUSATE SODIUM 10 MG/ML (10ML CUP) GTB (21:12)
[2019-05-16] MEDS: PIPER-TAZO 3.375 GM IV (PMX) 100 ML IVPB ×4 (01:07→17:29)
[2019-05-16] MEDS: POTASSIUM CHLORIDE 100 ML IVPB ×2 (01:07→03:02)
[2019-05-16] MEDS: VANCOMYCIN 500 MG (PMX) 100 ML IVPB ×2 (03:01→14:46)
[2019-05-16] MEDS: oxyCODONE 15 MG TAB PO ×4 (03:04→19:26)
[2019-05-16] MEDS: PANTOPRAZOLE 40 MG INJ IV (05:26)
[2019-05-16] MEDS: SOD CHLORIDE 0.9% 1,000 ML IV ×2 (05:26→14:52)
[2019-05-16] MEDS: NORepinephrine 8MG/250 ML (PMX 250 ML IV (05:53)
[2019-05-16] MEDS: HYDROmorphONE 1 MG/ML SYG IV ×4 (05:59→21:35)
[2019-05-16] MEDS: SENNA TAB PO ×2 (08:59→21:34)
[2019-05-16] MEDS: DOCUSATE SODIUM 10 MG/ML (10ML CUP) GTB ×2 (08:59→21:34)
[2019-05-16] MEDS: PROMETHAZINE/CODEINE 5ML CUP PO (21:34)
[2019-05-17] MEDS: oxyCODONE 15 MG TAB PO ×7 (00:02→23:45)
[2019-05-17] MEDS: PIPER-TAZO 3.375 GM IV (PMX) 100 ML IVPB ×4 (00:02→17:11)
[2019-05-17] MEDS: HYDROmorphONE 1 MG/ML SYG IV ×7 (00:35→16:16)
[2019-05-17] MEDS: SOD CHLORIDE 0.9% 1,000 ML IV ×2 (02:03→12:32)
[2019-05-17] MEDS: VANCOMYCIN 500 MG (PMX) 100 ML IVPB ×2 (02:54→15:26)
[2019-05-17] MEDS: PANTOPRAZOLE 40 MG INJ IV (06:00)
[2019-05-17] MEDS: POTASSIUM CHLORIDE 100 ML IVPB ×3 (07:51→12:56)
[2019-05-17] MEDS: PROMETHAZINE/CODEINE 5ML CUP PO ×2 (07:59→17:48)
[2019-05-17] MEDS: DOCUSATE SODIUM 10 MG/ML (10ML CUP) GTB (08:49)
[2019-05-17] MEDS: SENNA TAB PO ×2 (08:49→21:00)
[2019-05-17] MEDS: ENOXAPARIN 40 MG/0.4 ML SYG SC (08:51)
[2019-05-17] MEDS ORDERED: FENTAnyl (DRIP) 1000 mcg/100mL 100 ML IV (11:30)
[2019-05-17] MEDS: FENTAnyl (DRIP) 1000 mcg/100mL 100 ML IV (12:30)
[2019-05-17] MEDS: HYDROmorphONE 2 MG/ML SYG IV (20:29)
[2019-05-17] MEDS: LACTOBACILLUS RHAMNOSUS CAP PO (21:00)
[2019-05-18] MEDS: HYDROmorphONE 2 MG/ML SYG IV ×6 (00:12→20:05)
[2019-05-18] MEDS: SOD CHLORIDE 0.9% 1,000 ML IV ×3 (00:16→13:08)
[2019-05-18] MEDS: PIPER-TAZO 3.375 GM IV (PMX) 100 ML IVPB ×4 (00:20→17:51)
[2019-05-18] MEDS: VANCOMYCIN 500 MG (PMX) 100 ML IVPB ×2 (03:30→15:13)
[2019-05-18] MEDS: oxyCODONE 15 MG TAB PO ×5 (04:08→20:06)
[2019-05-18] MEDS: PROMETHAZINE/CODEINE 5ML CUP PO ×2 (04:15→08:08)
[2019-05-18] MEDS: FAMOTIDINE 20 MG INJ IV (08:08)
[2019-05-18] MEDS: LACTOBACILLUS RHAMNOSUS CAP PO ×2 (08:08→21:00)
[2019-05-18] MEDS: SENNA TAB PO ×2 (08:09→21:00)
[2019-05-18] MEDS: ENOXAPARIN 40 MG/0.4 ML SYG SC (08:15)
[2019-05-18] MEDS: FENTAnyl (DRIP) 1000 mcg/100mL 100 ML IV (11:26)
[2019-05-18] MEDS: ONDANSETRON 4 MG INJ IV (15:39)
[2019-05-18] MEDS: NA BICARBONATE 8.4% 50 ML SYG IV (21:00)
[2019-05-19] MEDS: oxyCODONE 15 MG TAB PO ×5 (00:01→16:09)
[2019-05-19] MEDS: PROMETHAZINE/CODEINE 5ML CUP PO ×2 (00:14→14:43)
[2019-05-19] MEDS: PIPER-TAZO 3.375 GM IV (PMX) 100 ML IVPB ×4 (00:14→17:27)
[2019-05-19] MEDS: SOD CHLORIDE 0.9% 1,000 ML IV ×3 (00:18→20:01)
[2019-05-19] MEDS: VANCOMYCIN 500 MG (PMX) 100 ML IVPB ×2 (03:58→15:27)
[2019-05-19] MEDS: HYDROmorphONE 2 MG/ML SYG IV ×8 (03:59→20:57)
[2019-05-19] MEDS: SENNA TAB PO ×2 (09:00→20:00)
[2019-05-19] MEDS: LACTOBACILLUS RHAMNOSUS CAP PO ×2 (09:00→19:59)
[2019-05-19] MEDS: FAMOTIDINE 20 MG TAB JT (09:44)
[2019-05-19] MEDS: ENOXAPARIN 40 MG/0.4 ML SYG SC (09:50)
[2019-05-19] MEDS: FENTAnyl (DRIP) 1000 mcg/100mL 100 ML IV (12:15)
[2019-05-19] MEDS: HYDROmorphONE 0.2 MG/ML PCA IV (14:33)
[2019-05-19] MEDS ORDERED: BARIUM SULF 2% 450 ML BTL (BERRY SMOOTHIE) PO (19:00)
[2019-05-19] MEDS: GABAPENTIN 100 MG CAP PO (20:00)
[2019-05-19] MEDS: D5W-0.45 NACL + KCL 20 MEQ 1,000 ML IV (20:29)
[2019-05-19] MEDS: ONDANSETRON 4 MG INJ IV (20:57)
[2019-05-20] MEDS: PIPER-TAZO 3.375 GM IV (PMX) 100 ML IVPB ×5 (00:06→23:35)
[2019-05-20] MEDS: HYDROmorphONE 0.2 MG/ML PCA IV ×2 (00:36→11:08)
[2019-05-20] MEDS: VANCOMYCIN 500 MG (PMX) 100 ML IVPB (03:15)
[2019-05-20] MEDS: PROMETHAZINE/CODEINE 5ML CUP PO ×2 (05:53→17:46)
[2019-05-20] MEDS: HYDROmorphONE 2 MG/ML SYG IV ×5 (07:34→23:35)
[2019-05-20] MEDS: DULOXETINE 20 MG CAP DR PO (09:00)
[2019-05-20] MEDS: GABAPENTIN 100 MG CAP PO ×3 (09:00→21:00)
[2019-05-20] MEDS: SENNA TAB PO ×2 (09:00→21:00)
[2019-05-20] MEDS: FAMOTIDINE 20 MG TAB JT (09:00)
[2019-05-20] MEDS: LACTOBACILLUS RHAMNOSUS CAP PO ×2 (09:00→21:00)
[2019-05-20] MEDS: ENOXAPARIN 40 MG/0.4 ML SYG SC (10:00)
[2019-05-20] MEDS: D5W-0.45 NACL + KCL 20 MEQ 1,000 ML IV ×2 (11:07→23:36)
[2019-05-20] MEDS: ONDANSETRON 4 MG INJ IV (11:30)
[2019-05-20] MEDS: SOD CHLORIDE 0.9% 100 ML (16:23)
[2019-05-20] MEDS: IOHEXOL 300MG/ML 150 ML BTL (16:23)
[2019-05-20] MEDS: PANTOPRAZOLE 40 MG INJ IV (17:46)
[2019-05-21] MEDS: HYDROmorphONE 0.2 MG/ML PCA IV ×3 (00:34→23:53)
[2019-05-21] MEDS: HYDROmorphONE 2 MG/ML SYG IV ×4 (03:42→19:24)
[2019-05-21] MEDS: PROMETHAZINE/CODEINE 5ML CUP PO ×4 (04:39→23:59)
[2019-05-21] MEDS: PANTOPRAZOLE 40 MG INJ IV ×2 (05:35→17:55)
[2019-05-21] MEDS: PIPER-TAZO 3.375 GM IV (PMX) 100 ML IVPB ×4 (05:35→23:10)
[2019-05-21] MEDS: DULOXETINE 20 MG CAP DR PO (08:54)
[2019-05-21] MEDS: LACTOBACILLUS RHAMNOSUS CAP PO ×2 (09:06→21:22)
[2019-05-21] MEDS: SENNA TAB PO ×2 (09:06→21:00)
[2019-05-21] MEDS: GABAPENTIN 100 MG CAP PO ×3 (09:06→21:22)
[2019-05-21] MEDS: ENOXAPARIN 40 MG/0.4 ML SYG SC (10:08)
[2019-05-21] MEDS: POLYETHYLENE GLYCOL 17 GM PACKET PO (21:00)
[2019-05-21] MEDS: PHYTONADIONE 10 MG/ML INJ IM (21:33)
[2019-05-21] MEDS: D5W-0.45 NACL + KCL 20 MEQ 1,000 ML IV (23:10)
[2019-05-22] MEDS: HYDROmorphONE 2 MG/ML SYG IV ×4 (00:59→21:40)
[2019-05-22] MEDS: NORepinephrine 8MG/250 ML (PMX 250 ML IV ×3 (02:27→21:56)
[2019-05-22] MEDS: PANTOPRAZOLE 40 MG INJ IV (04:29)
[2019-05-22] MEDS: PIPER-TAZO 3.375 GM IV (PMX) 100 ML IVPB ×3 (04:29→18:21)
[2019-05-22] MEDS: PROMETHAZINE/CODEINE 5ML CUP PO ×2 (06:07→20:39)
[2019-05-22] MEDS: GABAPENTIN 100 MG CAP PO ×3 (08:57→20:39)
[2019-05-22] MEDS: LACTOBACILLUS RHAMNOSUS CAP PO ×2 (08:57→20:39)
[2019-05-22] MEDS: DULOXETINE 20 MG CAP DR PO (08:57)
[2019-05-22] MEDS: SENNA TAB PO ×2 (09:00→20:40)
[2019-05-22] MEDS: ENOXAPARIN 40 MG/0.4 ML SYG SC (09:00)
[2019-05-22] MEDS: POLYETHYLENE GLYCOL 17 GM PACKET PO ×2 (09:00→20:40)
[2019-05-22] MEDS: HYDROmorphONE 0.2 MG/ML PCA IV ×2 (10:07→19:26)
[2019-05-22] MEDS: PANTOPRAZOLE (EC) 40 MG TAB PO (18:24)
[2019-05-23] MEDS: PIPER-TAZO 3.375 GM IV (PMX) 100 ML IVPB ×5 (00:54→23:36)
[2019-05-23] MEDS: D5W-0.45 NACL + KCL 20 MEQ 1,000 ML IV ×2 (00:56→21:58)
[2019-05-23] MEDS: NORepinephrine 8MG/250 ML (PMX 250 ML IV ×4 (03:51→19:39)
[2019-05-23] MEDS: HYDROmorphONE 2 MG/ML SYG IV ×4 (05:05→23:54)
[2019-05-23] MEDS: PROMETHAZINE/CODEINE 5ML CUP PO ×2 (05:05→21:57)
[2019-05-23] MEDS: PANTOPRAZOLE (EC) 40 MG TAB PO ×2 (05:14→18:15)
[2019-05-23] MEDS: HYDROmorphONE 0.2 MG/ML PCA IV ×2 (05:34→15:40)
[2019-05-23] MEDS: POLYETHYLENE GLYCOL 17 GM PACKET PO ×2 (09:00→21:51)
[2019-05-23] MEDS: SENNA TAB PO ×2 (09:00→21:41)
[2019-05-23] MEDS: GABAPENTIN 100 MG CAP PO ×3 (09:31→21:41)
[2019-05-23] MEDS: DULOXETINE 20 MG CAP DR PO (09:31)
[2019-05-23] MEDS: LACTOBACILLUS RHAMNOSUS CAP PO ×2 (09:31→21:41)
[2019-05-23] MEDS: KETOROLAC 30 MG INJ IV (20:35)
[2019-05-23] MEDS: SOD CHLORIDE 0.9% 500 ML IV (20:36)
[2019-05-23] MEDS: MINERAL OIL 133 ML ENEMA PR (21:41)
[2019-05-24] MEDS: NORepinephrine 8MG/250 ML (PMX 250 ML IV ×5 (01:57→23:48)
[2019-05-24] MEDS: KETOROLAC 30 MG INJ IV ×3 (02:09→14:45)
[2019-05-24] MEDS: HYDROmorphONE 0.2 MG/ML PCA IV ×3 (02:32→23:46)
[2019-05-24] MEDS: PIPER-TAZO 3.375 GM IV (PMX) 100 ML IVPB ×4 (05:32→23:34)
[2019-05-24] MEDS: PANTOPRAZOLE (EC) 40 MG TAB PO ×2 (05:32→17:32)
[2019-05-24] MEDS: HYDROmorphONE 2 MG/ML SYG IV ×6 (07:36→23:34)
[2019-05-24] MEDS: DULOXETINE 20 MG CAP DR PO (08:25)
[2019-05-24] MEDS: LACTOBACILLUS RHAMNOSUS CAP PO ×2 (08:26→21:18)
[2019-05-24] MEDS: POLYETHYLENE GLYCOL 17 GM PACKET PO ×2 (08:26→21:18)
[2019-05-24] MEDS: GABAPENTIN 100 MG CAP PO ×3 (08:26→21:18)
[2019-05-24] MEDS: SENNA TAB PO ×2 (08:30→21:18)
[2019-05-24] MEDS: LIDOCAINE 1% (MPF) 5 ML VIAL (14:40)
[2019-05-24] MEDS: D5W-0.45 NACL + KCL 20 MEQ 1,000 ML IV (22:00)
[2019-05-25] MEDS: D5W-0.45 NACL + KCL 20 MEQ 1,000 ML IV (01:03)
[2019-05-25] MEDS: HYDROmorphONE 2 MG/ML SYG IV ×4 (04:31→14:52)
[2019-05-25] MEDS: NORepinephrine 8MG/250 ML (PMX 250 ML IV (04:36)
[2019-05-25] MEDS: PANTOPRAZOLE (EC) 40 MG TAB PO (05:10)
[2019-05-25] MEDS: PIPER-TAZO 3.375 GM IV (PMX) 100 ML IVPB ×2 (05:10→11:37)
[2019-05-25] MEDS ORDERED: PHENYLephrine 20MG IN 250 ML 250 ML IV ×2 (06:30→07:00)
[2019-05-25] MEDS ORDERED: NORepinephrine 32 MG in DEXTROSE 5% 218 ML IV (06:30)
[2019-05-25] MEDS: POLYETHYLENE GLYCOL 17 GM PACKET PO (08:45)
[2019-05-25] MEDS: DULOXETINE 20 MG CAP DR PO (08:45)
[2019-05-25] MEDS: LACTOBACILLUS RHAMNOSUS CAP PO (08:46)
[2019-05-25] MEDS: SENNA TAB PO (08:46)
[2019-05-25] MEDS: GABAPENTIN 100 MG CAP PO ×2 (08:46→13:00)
[2019-05-25] MEDS: NORepinephrine 32 MG in DEXTROSE 5% 218 ML IV (10:11)
[2019-05-25] MEDS: PHENYLephrine 20MG IN 250 ML 250 ML IV ×2 (10:24→13:04)
[2019-05-25] MEDS: HYDROmorphONE 0.2 MG/ML PCA IV (11:48)
[2019-05-25] MEDS ORDERED: LANSOPRAZOLE (SOLTAB) 30 MG TAB GTB (18:00)
[2019-05-25] MEDS ORDERED: LANSOPRAZOLE 15 MG GTB (18:00)
== END 2019-05-25 18:02 | disposition expired | DRG 871 ==
LOC: ICU 23:32 → E/R 20:33
PROC: 0W9G3ZZ Drainage of Peritoneal Cavity, Percutaneous Approach (ICD-10-PCS; principal; 2019-05-24)
DX: A41.81 Sepsis due to Enterococcus (principal); R65.21 Severe sepsis with septic shock; K65.2 Spontaneous bacterial peritonitis; E87.1 Hypo-osmolality and hyponatremia; C16.9 Malignant neoplasm of stomach, unspecified; R18.0 Malignant ascites; E44.0 Moderate protein-calorie malnutrition; Z68.1 Body mass index [BMI] 19.9 or less, adult; C78.6 Secondary malignant neoplasm of retroperitoneum and peritoneum; K94.12 Enterostomy infection; L03.311 Cellulitis of abdominal wall; E87.6 Hypokalemia; Z66 Do not resuscitate; G89.3 Neoplasm related pain (acute) (chronic); R19.7 Diarrhea, unspecified; L30.9 Dermatitis, unspecified
CPT/HCPCS: 36415; 71045; 74018; 74177; 80048; 80053; 80202; 82533; 83605; 83690; 83735; 84100; 84132; 84484; 85025; 85610; 85730; 87040-91; 87070; 87081; 87102; 87116; 89051; 96361; 96374; 99285-25